=== PATIENT | female | born 1940 | race Two or more races ===

== ENCOUNTER 2020-02-14 07:49 | Outpatient (REF) | payer MEDICARE, SELFPAY ==
--- NOTE | 2020-02-14 08:15 | XR_ITS ---
EXAMINATION: XR KNEE, RIGHT CLINICAL INFORMATION: Right knee pain. Unspecified chronicity. COMPARISON: None TECHNIQUE: AP, lateral, tunnel, and sunrise views of the right knee. FINDINGS: 1 mild osteoarthritis is evident in the lateral and patellofemoral compartments with nonuniform joint space narrowing and articular surface irregularity. There is slight varus angulation of the right knee. Small right knee joint effusion. No fractures. 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 This may be situated within the fibular collateral ligament, lateral head of the gastrocnemius, or lateral joint capsule. No additional foci of calcification are identified. IMPRESSION: Severe medial compartment osteoarthritis in the right knee with associated varus angulation. Mild medial and lateral compartment osteophytes. 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
[2020-02-14 08:37] LABS: MANUAL DIFF FLAG NO
[2020-02-14 08:42] LABS: Basophils Percent Auto 0.4 % (0-2); Eosinophils Absolute Auto 0.1 X10*3/uL (0.0-0.4); Eosinophils Percent Auto 2.2 % (0-4); Hematocrit 37.9 % (37-47); Hemoglobin 12.6 g/dl (12.0-16.0); Imm Gran Abs Auto 0.01 X10*3/uL (0.00-0.03); Imm Gran Pct Auto 0.2 % (0.0-0.4); Lymphocytes Absolute Auto 1.8 X10*3/uL (1.2-4.9); Lymphocytes Percent Auto 32.8 % (20-40); Mean Corpuscular HGB Conc 33.2 g/dl (31.0-35.0); Mean Corpuscular Volume 93.3 fL (80-98); Mean Platelet Volume 10.9 fL (9.4-12.3); Monocytes Absolute Auto 0.6 X10*3/uL (0.1-1.2); Monocytes Percent Auto 10.2 % (2-11); Neutrophils Percent Auto 54.2 % (45-73); Platelet Count 209 X10*3/uL (160-400); Red Blood Count 4.06 X10*6/uL (4.20-5.50); Red Cell Distribution Width 12.6 % (11.0-16.0); White Blood Count 5.6 X10*3/uL (4.8-10.8)
[2020-02-14 09:04] LABS: Alanine Aminotransferase 18 U/L (0-31); Albumin Level 4.2 g/dL (3.5-5.0); Alkaline Phosphatase 81 U/L (39-117); Anion Gap 12 (12-20); Aspartate Amino Transferase 26 U/L (5-31); Bilirubin Total 0.6 mg/dL (0.0-1.0); Blood Urea Nitrogen 23 mg/dL (9-16); Carbon Dioxide 30 mmol/L (22-29); Chloride 103 mmol/L (96-108); Cholesterol 188 mg/dL; Estimated Glomerular Filt Rate > 60; Glucose Fasting 94 mg/dL (60-99); HDL Cholesterol 63 mg/dL; LDL Cholesterol Calculated 109 mg/dl; Potassium 3.5 mmol/l (3.3-5.1); Sodium 141 mmol/L (135-145); Total Protein 7.1 g/dL (6.5-8.0); Triglycerides 84 mg/dL
== END 2020-02-14 07:50 | disposition home or self-care (01) ==
LOC: HO.LAB 07:49
PROVIDERS: PCP Internal Medicine; Visit Provider Internal Medicine
DX: M25.561 Pain in right knee (principal); E78.00 Pure hypercholesterolemia, unspecified; K21.9 Gastro-esophageal reflux disease without esophagitis
CPT/HCPCS: 36415; 73564; 80053; 80061; 85025

== ENCOUNTER 2020-04-17 16:00 | Outpatient (REF) | payer MEDICARE, SELFPAY ==
--- NOTE | 2020-04-17 17:33 | US_ITS ---
EXAMINATION: US VENOUS ULTRASOUND WITH DOPPLER LOWER EXTREMITY, RIGHT CLINICAL INFORMATION: Chronic embolism and thrombosis. COMPARISON: Ultrasound left extremity 03/27/2012. TECHNIQUE: Ultrasound of the deep veins is performed from the hip to the calf with compression sonography and color and pulse Doppler assessment. Spectral analysis with color-flow imaging is performed. FINDINGS: There is normal venous compression and respiratory variation and augmented flow. The visualized common femoral vein, superficial femoral vein, profunda femoral vein, popliteal vein, and the trifurcation region shows no evidence of deep venous thrombosis. There is no significant popliteal fossa cyst. If the patient's symptoms persist, followup ultrasound in 5 days 7 days might be of value to exclude proximal propagation from a non-visualized calf vein. US/US venous duplex LE RT IMPRESSION: No DVT demonstrated in the right lower extremity.
== END 2020-04-17 16:01 | disposition home or self-care (01) ==
LOC: HO.US 16:00
PROVIDERS: PCP Internal Medicine; Visit Provider Nurse Practitioner Family
DX: I82.5Y1 Chronic embolism and thrombosis of unspecified deep veins of right proximal lower extremity (principal)
CPT/HCPCS: 93971

== ENCOUNTER 2020-04-18 08:18 | Outpatient (REF) | payer MEDICARE, SELFPAY ==
[2020-04-18 09:02] LABS: Basophils Percent Auto 0.4 % (0-2); Eosinophils Absolute Auto 0.1 X10*3/uL (0.0-0.4); Eosinophils Percent Auto 1.1 % (0-4); Hematocrit 39.3 % (37-47); Hemoglobin 13.1 g/dl (12.0-16.0); Imm Gran Abs Auto 0.02 X10*3/uL (0.00-0.03); Imm Gran Pct Auto 0.4 % (0.0-0.4); Lymphocytes Absolute Auto 1.7 X10*3/uL (1.2-4.9); MANUAL DIFF FLAG NO; Mean Corpuscular HGB Conc 33.3 g/dl (31.0-35.0); Mean Corpuscular Hemoglobin 31.4 pg (27.0-33.0); Mean Corpuscular Volume 94.2 fL (80-98); Mean Platelet Volume 10.6 fL (9.4-12.3); Monocytes Absolute Auto 0.6 X10*3/uL (0.1-1.2); Monocytes Percent Auto 10.1 % (2-11); Neutrophils Absolute Auto 3.1 X10*3/uL (2.0-8.3); Platelet Count 216 X10*3/uL (160-400); Red Blood Count 4.17 X10*6/uL (4.20-5.50); Red Cell Distribution Width 12.9 % (11.0-16.0); White Blood Count 5.5 X10*3/uL (4.8-10.8)
[2020-04-18 09:54] LABS: Anion Gap 13 (12-20); Blood Urea Nitrogen 18 mg/dL (9-16); Calcium 9.3 mg/dL (8.4-10.2); Carbon Dioxide 30 mmol/L (22-29); Chloride 103 mmol/L (96-108); Cholesterol 180 mg/dL; Estimated Glomerular Filt Rate > 60; Glucose Fasting 93 mg/dL (60-99); HDL Cholesterol 67 mg/dL; LDL Cholesterol Calculated 94 mg/dl; Potassium 3.7 mmol/l (3.3-5.1); Sodium 142 mmol/L (135-145); Triglycerides 95 mg/dL
== END 2020-04-18 08:19 | disposition home or self-care (01) ==
LOC: HO.LAB 08:18
PROVIDERS: PCP Internal Medicine; Visit Provider Nurse Practitioner Family
DX: M79.604 Pain in right leg (principal); E78.00 Pure hypercholesterolemia, unspecified
CPT/HCPCS: 36415; 80048; 80061; 85025

== ENCOUNTER 2020-08-06 09:02 | Emergency (ER) | payer MEDICARE, OTHER, SELFPAY ==
--- NOTE | ~2020-08-06 | US_ITS ---
EXAMINATION: US VENOUS ULTRASOUND WITH DOPPLER LOWER EXTREMITY, BILATERAL CLINICAL INFORMATION: Leg swelling. COMPARISON: None TECHNIQUE: Ultrasound of the deep veins is performed from the hip to the calf with compression sonography and color and pulse Doppler assessment. Spectral analysis with color-flow imaging is performed. FINDINGS: RIGHT: There is normal venous compression and respiratory variation and augmented flow. The visualized common femoral vein, superficial femoral vein, profunda femoral vein, popliteal vein, and the trifurcation region shows no evidence of deep venous thrombosis. There is is mild joint effusion. LEFT: There is normal venous compression and respiratory variation and augmented flow. The visualized common femoral vein, superficial femoral vein, profunda femoral vein, popliteal vein, and the trifurcation region shows no evidence of deep venous thrombosis. There is mild joint effusion. There is a small Avila's cyst measuring 3.8 x 1.2 x 2.5 cm If the patient's symptoms persist, followup ultrasound in 5 days 7 days might be of value to exclude proximal propagation from a non-visualized calf vein. US/US venous duplex LE BI IMPRESSION: No DVT demonstrated in the bilateral lower extremity. Bilateral small joint effusion. Small left knee Avila's cyst.
--- NOTE | ~2020-08-06 | XR_ITS ---
EXAMINATION: XR KNEE, RIGHT CLINICAL INFORMATION: Right knee pain COMPARISON: None TECHNIQUE: Four views of the right knee. FINDINGS: There is loss of medial and patellofemoral compartment joint space with moderate periarticular spurring. Moderate osteophytes are seen along the posterior tibial plateau and posterior femoral condyles. No visible acute fracture or dislocation seen. There is moderate suprapatellar joint effusion. Soft tissue calcification lateral to the lateral femoral condyle likely calcific tendinitis. XR/XR knee RT 4V IMPRESSION: Calcific tendinitis lateral femoral condyle. Mild suprapatellar joint effusion. No visible acute fracture or dislocation seen. Degenerative changes medial and patellofemoral compartment.
[2020-08-06 09:20] VITALS: BP 156/78; PULSE 60
[2020-08-06 09:22] VITALS: BP 164/71; PULSE 67; RESP 16; TEMP 37.2; O2SAT 99; BMI 21.0
--- NOTE | 2020-08-06 09:42 | ED.GENADULT ---
HPI - General Adult General Chief complaint: Extremity Injury, Lower Stated complaint: Bilateral Leg Swelling Time Seen by Provider: 08/06/20 09:28 Source: patient Mode of arrival: ambulatory Limitations: no limitations History of Present Illness HPI narrative: Patient presents to the ED for right knee/right calf pain for the past 2 days. Patient states symptoms occurred after using a stationary bike. Patient denies falling, chest pain, shortness of breath, fever, chills, redness of extremity, or swelling of lower extremities. Patient denies any blunt trauma the lower extremities. Related Data Previous Rx's Medication Instructions Recorded simvastatin 20 mg tablet 20 mg PO BEDTIME #90 tab 03/06/20 hydrochlorothiazide 25 mg tablet 25 mg PO DAILY #90 tab 04/07/20 naproxen 500 mg tablet 500 mg PO BID #60 tab 04/22/20 citalopram 10 mg tablet 10 mg PO DAILY #90 tab 04/30/20 citalopram 20 mg tablet 20 mg PO DAILY #90 tab 04/30/20 naproxen 500 mg PO BID PRN #20 tab 08/06/20 walker [Ultra-Light Rollator] #1 ea 08/06/20 Allergies Allergy/AdvReac Type Severity Reaction Status Date / Time aspirin [Aspirin] Allergy Mild RASH Verified 06/04/20 15:19 Review of Systems Review of Systems: Yes all other systems are reviewed and are negative Constitutional: Constitutional: Reports as per HPI and Reports no additional constitutional complaints Eyes: Eyes: Reports as per HPI and Reports no additional eye complaints ENT: Reports system reviewed and no additional complaints, except as documented and Reports as per HPI Cardiovascular: Cardiovascular: Reports as per HPI and Reports no additional cardiovascular complaints Respiratory: Respiratory: Reports as per HPI and Reports no additional respiratory complaints Gastrointestinal: Gastrointestinal: Reports as per HPI and Reports no additional gastrointestinal complaints Genitourinary: Genitourinary: Reports no additional female genitourinary complaints and Reports as per HPI Musculoskeletal: Musculoskeletal: Reports no additional musculoskeletal complaints and Reports as per HPI Comments: Right knee pain. Right calf pain Neurologic: Reports system reviewed and no additional complaints, except as documented and Reports as per HPI Psychiatric: Psychiatric: Reports no additional psychiatric complaints and Reports as per HPI PMFSH Past Medical History Medical History Dyslipidemia High cholesterol Hypertension Osteoarthritis of right knee Right leg DVT Right leg pain Right leg pain Surgical History H/O rectal polypectomy History of hand surgery Family History Family History Father Old age Mother Respiratory disease Brother Pancreatic cancer Sister No problems noted. Sister No problems noted. Daughter No problems noted. Daughter No problems noted. Social History Social History Smoking Status: Never smoker Tobacco Type: Cigarette Smoked in Last 30 Days: No Use of substances other than those prescribed or required for medical reasons: No Advance Directives: Yes Advance Directives Information Provided: Yes Advance Directives on File: No Physical Exam Vital Signs: Vital Signs: Last Vital Signs Temp 98.9 F 08/06/20 13:03 Pulse 68 08/06/20 13:03 Resp 16 08/06/20 13:03 BP 131/60 08/06/20 13:03 Pulse Ox 97 08/06/20 13:03 Body Mass Index 21.0 Const: General: cooperative, healthy appearing, comfortable, no acute distress, well developed, alert, awake and Physically active Orientation/consciousness: patient oriented x3 HENMT: Head: Yes normal to inspection, Yes No palpable skull fracture present, Yes normocephalic and Yes atraumatic Eyes: General: appearance normal, both eyes and all related structures Neck: Neck: Yes normal visual inspection, Yes full ROM, Yes no lymphadenopathy, Yes no meningeal signs, Yes trachea midline, Yes supple and No tender Chest: Chest palpation & inspection: normal inspection of the chest and normal palpation of entire chest wall Resp: Effort & Inspection: normal respiratory effort and able to speak in complete sentences Auscultation: clear to auscultation bilaterally Cardio: Jugular venous distension: no JVD Heart sounds: S1 normal heart sound present and S2 normal heart sound present GI: Inspection: Yes normal to inspection and No abdominal wall ecchymosis Palpation (GI): Soft to palpation, not firm, nontender, no guarding and not rigid : General: No CVA tenderness and Yes no CVA tenderness Back/Spine/Pelvis: Back: no CVA tenderness, No CVA tenderness and No back tenderness Skin: General skin exam: no rashes or lesions noted and elasticity normal Neuro: General: patient oriented x3, no meningeal signs and CN's II-XI intact bilaterally Cranial nerves: Yes CN's II-XII intact bilaterally Extrem: Other: Right lower extremity: Negative for swelling, redness, hotness, or coolness. Presently negative for any calf tenderness. Patient able to to flex and extend knee with slight discomfort. Knee negative for erythema, swelling, warmth. Positive for tenderness on patellar knee. negative for pitting edema. Vascular/Neuro/motor exam intact Left lower extremity: Negative for any swelling, redness, erythema, tenderness, pain edema. negative for pitting edema. Vascular/Neuro/motor exam is intact General: Yes normal to inspection and Yes full ROM Psych: Appearance: grossly normal, well kempt and not disheveled Course Course Course Narrative: History physical exam does not indicate CHF for DVT, but due to patient stating right calf pain should be sent for ultrasound of right lower extremity. Patient also have x-ray of right knee. Not suspecting septic joint. Labs not indicated. Not suspecting CHF. Reevaluation(s) Reevaluation #1: Ultrasound negative for DVT. Right knee x-ray positive for severe arthritis/tendinitis. Patient able to ambulate on her own, but has pain inright knee on ambulation. PT evaluation ordered and case management was speak to patient after. Reevaluation #2: PT evaluated patient and recommends wheeled walker. Diagnosis right knee arthritis. system developer associate manager Margaux organize VNS services for patient after speaking to patient and daugther. Medical Decision Making MDM Narrative Medical decision making narrative: Right knee arthritis Discharge Plan Discharge Clinical Impression: Osteoarthritis of right knee Patient Disposition: Home, Self-Care Instructions: Osteoarthritis (ED) Additional Instructions: Return to ED for any redness/warmth, swelling of lower extremities, fever, chills, chest pain, shortness of breath, or any other concerning symptoms. Prescriptions: New (DME) Ultra-Light Rollator Misc See Rx Instructions .ROUTE .MEDSUPPLY Qty: 1 RF: 0 naproxen 500 mg tablet 500 mg PO BID PRN (Reason: pain) Qty: 20 RF: 0 No Action simvastatin 20 mg tablet 20 mg PO BEDTIME Qty: 90 RF: 3 hydrochlorothiazide 25 mg tablet 25 mg PO DAILY Qty: 90 RF: 1 naproxen 500 mg tablet 500 mg PO BID Qty: 60 RF: 5 citalopram 10 mg tablet 10 mg PO DAILY Qty: 90 RF: 3 citalopram 20 mg tablet 20 mg PO DAILY Qty: 90 RF: 3 Referrals: [facility] [Outside] - 2 days Duarte Simon MD [Physician] - 2 days (Severe right knee osteoarthritis and tendinitis.) Tara Rowley MD [Primary Care Provider] - 2 days (Lower extremity negative for DVT. Right knee positive for osteoarthritis and tomorrow lateral condyle calcific tendinitis.) Interventions: ED Discharge Assessment Last Done: 08/06/20 13:26 Discharge Date/Time: 08/06/20 13:27 Print Language: Brazilian
[2020-08-06] MEDS: Acetaminophen 325 MG TABLET 650 MG PO (10:33)
--- NOTE | 2020-08-06 12:46 | PC.NURSE ---
LANETTE JIMENEZ AND PT/FAMILY AWARE US/XRAY RESULTS, PT HAD AMBULATED TO BR SLOW/STEADY GAIT/MOVEMENTS OBSERVED BY THIS RN. PTS DAUGHTER REQUESTING PT ASSESSMENT, CASE MGT AWARE, PT NOW AT BEDSIDE, AMBULATORY WITH WHEELED WALKER
[2020-08-06 12:55] VITALS: BP 164/71; PULSE 67; O2SAT 99
[2020-08-06 13:03] VITALS: BP 131/60; PULSE 68; RESP 16; TEMP 37.2; O2SAT 97
--- NOTE | 2020-08-06 13:14 | MHC.CM.ED ---
Received case management consult from [facility]. Patient came to ER with bilateral leg swelling. Patient found to have osteoarthritis. Patient's daughter, Cassandra is concerned about patient going home because she cares for her . Physical therapy emily completed. Home therapy is recommended. Patient is primarily Burkinan speaking. Declining interpeter at this time. Patient's daughter states patient lives with her , ambulates independently and had no services prior to coming to the ER. PCP verified. Patient's was active with [facility] in the past. Patient and daughter requesting referral there. Referral made via allscripts. [facility] aware. Continue to monitor for d/c needs.
--- NOTE | 2020-08-06 14:33 | MHC.CM.ED ---
Received notification from [facility] that they are unable to accept patient. Referral made to [facility]. They will accept patient when they verify patient's PCP. Spoke with patient's daughter, Cassandra via telephone at [phone]. Explained above info. Cassandra verbalized understanding.
== END 2020-08-06 13:27 | disposition home or self-care (01) ==
PROVIDERS: Emergency Provider Emergency Medicine; PCP Internal Medicine
DX: M17.11 Unilateral primary osteoarthritis, right knee (principal); M25.561 Pain in right knee; E78.5 Hyperlipidemia, unspecified; I10 Essential (primary) hypertension; F17.210 Nicotine dependence, cigarettes, uncomplicated; Z86.718 Personal history of other venous thrombosis and embolism; Z79.02 Long term (current) use of antithrombotics/antiplatelets; Z79.899 Other long term (current) drug therapy
CPT/HCPCS: 73564; 93970; 97162; 99284

== ENCOUNTER 2020-10-02 07:46 | Outpatient (REF) | payer MEDICARE, OTHER, SELFPAY ==
[2020-10-02 08:53] LABS: Alanine Aminotransferase 15 U/L (0-31); Alkaline Phosphatase 82 U/L (39-117); Anion Gap 11 (12-20); Aspartate Amino Transferase 22 U/L (5-31); Bilirubin Total 0.3 mg/dL (0.0-1.0); Blood Urea Nitrogen 19 mg/dL (9-16); Calcium 9.4 mg/dL (8.4-10.2); Carbon Dioxide 30 mmol/L (22-29); Chloride 104 mmol/L (96-108); Cholesterol 197 mg/dL; Estimated Glomerular Filt Rate > 60; Glucose Fasting 94 mg/dL (60-99); HDL Cholesterol 71 mg/dL; LDL Cholesterol Calculated 109 mg/dl; Potassium 3.6 mmol/L (3.3-5.1); Sodium 141 mmol/L (135-145); Total Protein 6.8 g/dL (6.5-8.0); Triglycerides 86 mg/dL
== END 2020-10-02 07:47 | disposition home or self-care (01) ==
LOC: HO.LAB 07:46
PROVIDERS: PCP Internal Medicine; Visit Provider Internal Medicine
DX: E78.5 Hyperlipidemia, unspecified (principal)
CPT/HCPCS: 36415; 80053; 80061

== ENCOUNTER 2021-01-06 13:02 | Emergency (ER) | payer MEDICARE, OTHER, SELFPAY ==
--- NOTE | ~2021-01-06 | CT_ITS ---
EXAMINATION: CT HEAD WITHOUT CONTRAST CT FACIAL BONES WITHOUT CONTRAST CT CERVICAL SPINE WITHOUT CONTRAST CLINICAL INFORMATION: Status post mechanical fall with head injury. COMPARISON: None TECHNIQUE: Contiguous axial imaging was performed from the skull base to vertex with multiplanar 2-D reconstructions without contrast. Helical scanning was performed of the cervical spine in the axial plane with multiplanar 2-D reconstructions without contrast. This CT examination was performed using dose optimization techniques as appropriate, variously including the following: *Automated exposure control *Adjustment of mA and/or kV according to patient size (this includes techniques or standardized protocols for targeted exams where dose is matched to indication/reason for exam; i.e. extremities or head) *Use of iterative reconstruction technique DLP: 1156 mGy-cm FINDINGS: CT HEAD: There is no evidence of acute intracranial hemorrhage or territorial infarction. No abnormal mass effect or midline shift is seen. Giordano to white matter differentiation is well preserved. No extra-axial fluid collections are identified. The ventricles are normal in size. There is no abnormal attenuation within the brain parenchyma. The osseous structures and soft tissues are normal. There is fluid in the right maxillary sinus (see below). The rest of the paranasal sinuses and mastoid air cells are unremarkable. CT FACIAL BONES: There is a mildly comminuted fracture of the right orbital floor. There is slight depression of a few fracture fragments. There is a depressed fracture of the anterior wall of the right maxillary sinus. There is a comminuted fracture of the right posterolateral wall of the maxillary sinus. There is high-density fluid filling more than half of the right maxillary sinus, most likely blood. There is a small amount of air in the subcutaneous tissues anterior to the right maxillary sinus. There is some soft tissue swelling and a few bubbles of air in the soft tissues anterolateral to the right orbit. There is dteracqb-yz-lcxcqj osteoarthritis in both temporomandibular joints. CT CERVICAL SPINE: There is no acute fracture or prevertebral soft tissue swelling. There is severe degenerative disc disease at C5-C6 and onkczriq-gp-jdyhmz degenerative disc disease at C6-C7. There is a mild grade 1 anterolisthesis of C4 on C5 which is likely on a degenerative basis. There is multilevel yetrelsx-vo-bmyolk bilateral facet arthropathy. CT/CT head/brain wo con IMPRESSION: CT HEAD: No evidence of acute intracranial injury. CT FACIAL BONES: 1. Fractures of the right orbital floor. 2. Fractures of the anterior and posterolateral ramirez of the maxillary sinus. Moderate fluid in the right maxilla. 3. Tjcrdftx-ci-igektk osteoarthritis of both temporomandibular joints. CT CERVICAL SPINE: 1. Multilevel degenerative disc disease and facet arthropathy. 2. No evidence of acute injury.
--- NOTE | ~2021-01-06 | XR_ITS ---
EXAMINATION: XR SHOULDER, LEFT CLINICAL INFORMATION: Fall, trauma, pain COMPARISON: None TECHNIQUE: Portable AP and lateral views of the left shoulder are obtained. FINDINGS: There is no fracture or dislocation. The acromioclavicular alignment is normal. There are degenerative changes acromioclavicular joint. A corticated ossicle is present at superior aspect AC joint. The left lung apex as well as maintenance shows no pneumothorax or pleural reaction. XR/XR shoulder LT min 2V IMPRESSION: No fracture or dislocation.
--- NOTE | ~2021-01-06 | CT_ITS ---
EXAMINATION: CT HEAD WITHOUT CONTRAST CT FACIAL BONES WITHOUT CONTRAST CT CERVICAL SPINE WITHOUT CONTRAST CLINICAL INFORMATION: Status post mechanical fall with head injury. COMPARISON: None TECHNIQUE: Contiguous axial imaging was performed from the skull base to vertex with multiplanar 2-D reconstructions without contrast. Helical scanning was performed of the cervical spine in the axial plane with multiplanar 2-D reconstructions without contrast. This CT examination was performed using dose optimization techniques as appropriate, variously including the following: *Automated exposure control *Adjustment of mA and/or kV according to patient size (this includes techniques or standardized protocols for targeted exams where dose is matched to indication/reason for exam; i.e. extremities or head) *Use of iterative reconstruction technique DLP: 1156 mGy-cm FINDINGS: CT HEAD: There is no evidence of acute intracranial hemorrhage or territorial infarction. No abnormal mass effect or midline shift is seen. Giordano to white matter differentiation is well preserved. No extra-axial fluid collections are identified. The ventricles are normal in size. There is no abnormal attenuation within the brain parenchyma. The osseous structures and soft tissues are normal. There is fluid in the right maxillary sinus (see below). The rest of the paranasal sinuses and mastoid air cells are unremarkable. CT FACIAL BONES: There is a mildly comminuted fracture of the right orbital floor. There is slight depression of a few fracture fragments. There is a depressed fracture of the anterior wall of the right maxillary sinus. There is a comminuted fracture of the right posterolateral wall of the maxillary sinus. There is high-density fluid filling more than half of the right maxillary sinus, most likely blood. There is a small amount of air in the subcutaneous tissues anterior to the right maxillary sinus. There is some soft tissue swelling and a few bubbles of air in the soft tissues anterolateral to the right orbit. There is fczwvjlr-tk-erygdm osteoarthritis in both temporomandibular joints. CT CERVICAL SPINE: There is no acute fracture or prevertebral soft tissue swelling. There is severe degenerative disc disease at C5-C6 and jlpholui-uh-unxgng degenerative disc disease at C6-C7. There is a mild grade 1 anterolisthesis of C4 on C5 which is likely on a degenerative basis. There is multilevel rwuyudcf-mb-kjtdxi bilateral facet arthropathy. CT/CT cervical spine wo con IMPRESSION: CT HEAD: No evidence of acute intracranial injury. CT FACIAL BONES: 1. Fractures of the right orbital floor. 2. Fractures of the anterior and posterolateral ramirez of the maxillary sinus. Moderate fluid in the right maxilla. 3. Laihuqvt-qn-hqroxf osteoarthritis of both temporomandibular joints. CT CERVICAL SPINE: 1. Multilevel degenerative disc disease and facet arthropathy. 2. No evidence of acute injury.
--- NOTE | ~2021-01-06 | CT_ITS ---
EXAMINATION: CT HEAD WITHOUT CONTRAST CT FACIAL BONES WITHOUT CONTRAST CT CERVICAL SPINE WITHOUT CONTRAST CLINICAL INFORMATION: Status post mechanical fall with head injury. COMPARISON: None TECHNIQUE: Contiguous axial imaging was performed from the skull base to vertex with multiplanar 2-D reconstructions without contrast. Helical scanning was performed of the cervical spine in the axial plane with multiplanar 2-D reconstructions without contrast. This CT examination was performed using dose optimization techniques as appropriate, variously including the following: *Automated exposure control *Adjustment of mA and/or kV according to patient size (this includes techniques or standardized protocols for targeted exams where dose is matched to indication/reason for exam; i.e. extremities or head) *Use of iterative reconstruction technique DLP: 1156 mGy-cm FINDINGS: CT HEAD: There is no evidence of acute intracranial hemorrhage or territorial infarction. No abnormal mass effect or midline shift is seen. Giordano to white matter differentiation is well preserved. No extra-axial fluid collections are identified. The ventricles are normal in size. There is no abnormal attenuation within the brain parenchyma. The osseous structures and soft tissues are normal. There is fluid in the right maxillary sinus (see below). The rest of the paranasal sinuses and mastoid air cells are unremarkable. CT FACIAL BONES: There is a mildly comminuted fracture of the right orbital floor. There is slight depression of a few fracture fragments. There is a depressed fracture of the anterior wall of the right maxillary sinus. There is a comminuted fracture of the right posterolateral wall of the maxillary sinus. There is high-density fluid filling more than half of the right maxillary sinus, most likely blood. There is a small amount of air in the subcutaneous tissues anterior to the right maxillary sinus. There is some soft tissue swelling and a few bubbles of air in the soft tissues anterolateral to the right orbit. There is qdnmtmjr-hw-ncdsuo osteoarthritis in both temporomandibular joints. CT CERVICAL SPINE: There is no acute fracture or prevertebral soft tissue swelling. There is severe degenerative disc disease at C5-C6 and xthcgyhj-tk-rclskh degenerative disc disease at C6-C7. There is a mild grade 1 anterolisthesis of C4 on C5 which is likely on a degenerative basis. There is multilevel jumwaqop-av-dqpunj bilateral facet arthropathy. CT/CT facial bones wo con IMPRESSION: CT HEAD: No evidence of acute intracranial injury. CT FACIAL BONES: 1. Fractures of the right orbital floor. 2. Fractures of the anterior and posterolateral ramirez of the maxillary sinus. Moderate fluid in the right maxilla. 3. Gcrgsufl-qm-mynqtd osteoarthritis of both temporomandibular joints. CT CERVICAL SPINE: 1. Multilevel degenerative disc disease and facet arthropathy. 2. No evidence of acute injury.
[2021-01-06 13:11] VITALS: BP 138/89; BP 177/73; PULSE 102; PULSE 76; RESP 18; TEMP 36.9; O2SAT 99; BMI 24.0
[2021-01-06] MEDS: Acetaminophen 325 MG TABLET 975 MG PO (13:40)
--- NOTE | 2021-01-06 13:46 | ED_ITS ---
HPI - Fall General Chief Complaint: Fall Stated Complaint: fall Time Seen by Provider: 01/06/21 13:35 Source: patient and EMS Mode of arrival: EMS Limitations: language barrier ([place]er-speaking) History of Present Illness HPI Narrative: 80-year-old female who is [place]er-speaking with a past medical history of hypertension, hyperlipidemia, osteoporosis and a DVT of the right leg who denies being on any blood thinners presenting to the ED via EMS with C- collar in place after she had a mechanical fall where she reports her daughter gifted her new shoes which were a little bit bigger than her normal size and when she was trying to walk up the steps or house she tripped and fell on her own shoe hitting her head/face on the cement steps. She denies any prolonged down time. She reports her daughter was next to her the entire time of the fall and she called EMS immediately. She reports she did not have any symptoms prior to the fall. She reports only pain after the fall no other symptoms. She reports she is up-to-date on her tetanus she received 1 year ago. complaint: fall Onset (ago): minute(s) (Prior to arrival) Fall from: standing Fall witnessed: yes, by family (By daughter) Place fall occurred: home (While trying to enter her house on her front steps) Loss of consciousness: none Prolonged down time: no Symptoms prior to fall: none Context: tripped/slipped (Due to new shoes that were big) Location of injury: head, face and neck Location of injury - extremities: left: shoulder Severity: moderate Quality: aching Associated symptoms (after fall): denies Related Data Previous Rx's Medication Instructions Recorded simvastatin 20 mg tablet 20 mg PO BEDTIME #90 tab 03/06/20 citalopram 10 mg tablet 10 mg PO DAILY #90 tab 04/30/20 naproxen 500 mg tablet 500 mg PO BID PRN #20 tab 08/06/20 walker (Ultra-Light Rollator) #1 ea 08/06/20 hydrochlorothiazide 25 mg tablet 25 mg PO DAILY #90 tab 09/24/20 citalopram 20 mg tablet 20 mg PO DAILY #90 tab 11/02/20 clobetasol 0.05 % topical gel 1 appl TOPICAL DAILY 30 Days #30 g 12/13/20 acetaminophen 500 mg tablet 1,000 mg PO QID PRN #14 tab 01/06/21 (Tylenol Extra Strength) amoxicillin 875 mg-potassium 1 tab PO BID 10 Days #20 tab 01/06/21 clavulanate 125 mg tablet (Augmentin) tramadol 50 mg tablet 50 mg PO BID PRN #14 tab 01/06/21 Allergies Allergy/AdvReac Type Severity Reaction Status Date / Time aspirin [Aspirin] Allergy Mild RASH Verified 10/07/20 15:43 Review of Systems Review of Systems: Constitutional : No changes in activity, No lethargy, No recent prior head injury, No agitation, No increased fussiness ENT/Mouth : No Ear Pain, No Nasal discharge/drainage Eyes: No Eye Pain, No Swelling, No Redness, No Foreign Body, No Vision Changes Cardiovascular : No Chest Pain, No SOB Respiratory : No Cough Gastrointestinal : No Nausea, No Vomiting, No abdominal Pain Genitourinary : No Dysuria, No Urinary Frequency, No Urinary Incontinence, No Urgency, No Flank Pain Musculoskeletal : Positive facial injury/pain, Positive left shoulder joint pain, No neck stiffness, No back pain/injury Skin : Positive right forehead laceration Neuro : No unsteady gait, No Paresthesias, No Loss of Consciousness, No altered mental status, No Headache Yes all other systems are reviewed and are negative [facility] Past Medical History Attestation statement: The following information was validated with the patient. Medical History Dyslipidemia High cholesterol Hypertension Left shoulder pain Osteoarthritis of right knee Osteoporosis Right leg DVT Right leg pain Right leg pain Surgical History H/O rectal polypectomy History of hand surgery Family History Family History Father Old age Mother Respiratory disease Brother Pancreatic cancer Sister No problems noted. Sister No problems noted. Daughter No problems noted. Daughter No problems noted. Social History Social History Alcohol intake: current Alcohol intake frequency: a few times a week Alcohol type: wine Patient Tobacco Use Status: Never used Tobacco Second Hand Smoke Exposure: No Advance Directives: Yes Advance Directives Information Provided: No Advance Directives on File: No Physical Exam Vital Signs: Vital Signs: Last Vital Signs Temp 98.5 F 01/06/21 15:19 Pulse 66 01/06/21 15:19 Resp 18 01/06/21 15:19 BP 152/64 H 01/06/21 15:19 Pulse Ox 99 01/06/21 15:19 Body Mass Index 24.0 vital signs have been reviewed as normal and appeared to be correct. Blood pressure hypertensive 177/73 Heart rate normal. Respiration rate normal. Temperature normal. Oxygen saturation normal. Appearance: Alert. Oriented X3. No acute distress. Head: No [place] signs noted. No raccoon eyes noted patient has a 2 cm intermediate laceration to right forehead right above the right eyebrow. No active bleeding or foreign bodies or obvious deformities or depressions noted. The rest of the external exam is within normal limits. Eyes: PERRLA. EOMI. No entrapment noted on my exam. Conjunctiva and sclera normal. Eyelids normal. ENT: EAC normal. TM's Normal. No septal hematoma noted. No hemotympanum noted. Pharynx normal. Uvula midline. Moist mucous membranes. No trismus noted. No drooling noted. No muffled voice noted. Neck: Normal inspection. Neck supple. FROM. No adenopathy. Thyroid Normal. No meningeal signs. No neck mass noted. CVS: Normal heart rate and rhythm. Heart sound normal. Pulses normal throughout. No murmurs/rales/gallops. Respiratory: No respiratory distress. Painless inspiration. Breath sounds normal. No wheezes/rales/rhonchi noted. Chest nontender. No accessory muscle usage noted or decreased air movement noted. Abdomen: Soft and nontender. Bowel sounds normal in all 4 quadrants. No distention noted. No organomegaly noted. No visible injury noted. Back: No CVA tenderness. Full range of motion noted. No rashes/lesion/induration/fluctuance or signs of infection noted. Skin: Skin warm and dry. Normal skin color. Normal skin turgor. No rashes/lesions/lacerations noted. Extremities: No lower extremity edema. No calf tenderness is noted. Patient with tenderness palpation to left AC joint although patient has full range of motion no obvious ligamentous laxity noted. No abrasion/laceration/ecchymosis or signs of infection noted to the left shoulder joint. Otherwise all other extremities exhibit normal range of motion and nontender. Neuro: Oriented X 3. No motor deficit. No sensory deficit. Reflexes normal. Normal steady gait. No focal neuro deficits noted. Vascular: + radial pulses/+ 2 distal pedal pulses/+2 dorsalis pedis b/l. Normal cap refill. No cyanosis noted to upper extremity nails and lower extremity toes nails. Course Course Course Narrative: 13:35pm - 80-year-old female presenting to the ED with complaints of facial pain with a laceration to right forehead after she sustained a mechanical fall where she was walking up the steps of her home and she tripped and fell due to her new shoes that were too big on her. She denied any loss of consciousness and denied any symptoms prior to the fall only complaints of pain after the fall no other symptoms. She is not up-to-date on tetanus. On exam patient is alert oriented x3. Not in any acute distress. No focal neuro deficits are noted. She has a 2 cm intermediate laceration to right forehead. No active bleeding or foreign bodies. No other signs of trauma. Patient also noted to have tenderness to palpation to left shoulder joint. Patient has full range of motion of the left shoulder no obvious laxity noted. Plan: CT scan of brain/cervical spine/facial bones, x-ray of left shoulder provide 975 mg of Tylenol, 50 mg of tramadol and update the patient's tetanus and suture the patient's laceration up and re-evaluate. Reevaluation(s) Reevaluation #1: - left shoulder x-ray within normal limits no acute processes are noted. - CT scan of brain within normal limits no acute processes were noted. - CT scan of cervical spine revealed chronic changes no acute processes were noted. 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 - therefore will DC home with antibiotics and symptomatic treatment and instructions to follow-up with PCP and facial maxilla surgeon and to return if any new or worsening symptoms. I also explained to the daughter and the patient that she should avoid any strenuous activity and if she sneezes to let it out to not hold it in or coughs and she understands this. Along with instructions return if any new or worsening symptoms. They understand and agree with this plan. Time: 16:14 Procedures Laceration Laceration 1: Site: face (Forehead/above right eyebrow) Side (If applicable): right Size (cm): 2 Description: irregular and clean Depth: simple, single layer and involves muscle layer Local Anesthetic: lidocaine 1% Amount of anesthesia used (mL): 3 Pre-repair: wound explored, irrigated extensively and deep structures intact Skin layer closed with: nylon Size (cm): 5-0 Number of sutures: 5 Technique: simple, interrupted MDM - Fall Medical Records Attestation: I reviewed the patient's medical records. Imaging Data CT scan of brain/cervical spine/facial bones without contrast: Attestation: I personally reviewed and interpreted this imaging study as follows: Radiologist's impression: FINDINGS: CT HEAD: There is no evidence of acute intracranial hemorrhage or territorial infarction. No abnormal mass effect or midline shift is seen. Giordano to white matter differentiation is well preserved. No extra-axial fluid collections are identified. The ventricles are normal in size. There is no abnormal attenuation within the brain parenchyma. The osseous structures and soft tissues are normal. There is fluid in the right maxillary sinus (see below). The rest of the paranasal sinuses and mastoid air cells are unremarkable. CT FACIAL BONES: There is a mildly comminuted fracture of the right orbital floor. There is slight depression of a few fracture fragments. There is a depressed fracture of the anterior wall of the right maxillary sinus. There is a comminuted fracture of the right posterolateral wall of the maxillary sinus. There is high-density fluid filling more than half of the right maxillary sinus, most likely blood. There is a small amount of air in the subcutaneous tissues anterior to the right maxillary sinus. There is some soft tissue swelling and a few bubbles of air in the soft tissues anterolateral to the right orbit. There is tymotpzy-rd-zwugsk osteoarthritis in both temporomandibular joints. CT CERVICAL SPINE: There is no acute fracture or prevertebral soft tissue swelling. There is severe degenerative disc disease at C5-C6 and ujmvnlyh-nd-sqhbqj degenerative disc disease at C6-C7. There is a mild grade 1 anterolisthesis of C4 on C5 which is likely on a degenerative basis. There is multilevel ubegpvhx-fj-lltcey bilateral facet arthropathy. CT/CT facial bones wo con IMPRESSION: CT HEAD: No evidence of acute intracranial injury. ? CT FACIAL BONES: 1. Fractures of the right orbital floor. 2. Fractures of the anterior and posterolateral ramirez of the maxillary sinus. Moderate fluid in the right maxilla. 3. Bcpfzjus-vk-zslesl osteoarthritis of both temporomandibular joints. ? CT CERVICAL SPINE: 1. Multilevel degenerative disc disease and facet arthropathy. 2. No evidence of acute injury. Left shoulder x-ray: Attestation: I personally reviewed and interpreted this imaging study as follows: Radiologist's impression: FINDINGS: There is no fracture or dislocation. The acromioclavicular alignment is normal. There are degenerative changes acromioclavicular joint. A corticated ossicle is present at superior aspect AC joint. The left lung apex as well as maintenance shows no pneumothorax or pleural reaction.? XR/XR shoulder LT min 2V IMPRESSION: No fracture or dislocation. Discharge Plan Discharge Clinical Impression: Fall, Forehead laceration, Closed fracture of right orbital floor, Fracture of right side of maxilla Patient Disposition: Home, Self-Care Instructions: Laceration (ED), Facial Fracture (ED), Fall Prevention for Older Adults (ED) Additional Instructions: Please contact [address] [place] [address] AT [phone] to follow up with a Facial Cosmetic and Maxillofacial Surgeon Comun?hu souza [address] [place] [address] [place] [phone] para hacer un seguimiento con un cirujano est?luis e facial y maxilofacial Prescriptions: New tramadol 50 mg tablet 50 mg PO BID PRN (Reason: pain) Qty: 14 RF: 0 acetaminophen [Tylenol Extra Strength] 500 mg tablet 1,000 mg PO QID PRN (Reason: fever or pain) Qty: 14 RF: 0 amoxicillin-pot clavulanate [Augmentin] 875-125 mg tablet 1 tab PO BID 10 Days Qty: 20 RF: 0 No Action simvastatin 20 mg tablet 20 mg PO BEDTIME Qty: 90 RF: 3 citalopram 10 mg tablet 10 mg PO DAILY Qty: 90 RF: 3 hydrochlorothiazide 25 mg tablet 25 mg PO DAILY Qty: 90 RF: 1 citalopram 20 mg tablet 20 mg PO DAILY Qty: 90 RF: 3 clobetasol 0.05 % gel 1 appl topical DAILY 30 Days Qty: 30 RF: 1 (DME) Ultra-Light Rollator Misc See Rx Instructions .ROUTE .MEDSUPPLY Qty: 1 RF: 0 naproxen 500 mg tablet 500 mg PO BID PRN (Reason: pain) Qty: 20 RF: 0 Referrals: Mary Wray PA [Emergency Midlevel Provider] - 5 days (for suture removal ) Physician,Unknown [Primary Care Provider] - 2 days (your pcp) Print Language: [place]er
[2021-01-06] MEDS: Lidocaine HCl 1 % MPF 5 ML VIAL INFILTRATI (13:55)
[2021-01-06] MEDS: traMADoL HCL 50 MG TABLET PO (14:14)
[2021-01-06] MEDS: Diphth,Pertus(ACell),Tet Adult 0.5 ML SYRINGE IM (14:14)
[2021-01-06 15:19] VITALS: BP 152/64; PULSE 66; RESP 18; TEMP 36.9; O2SAT 99
== END 2021-01-06 16:56 | disposition home or self-care (01) ==
PROVIDERS: Emergency Provider Emergency Medicine
DX: S01.81XA Laceration without foreign body of other part of head, initial encounter (principal); S02.31XA Fracture of orbital floor, right side, initial encounter for closed fracture; S02.40CA Maxillary fracture, right side, initial encounter for closed fracture; W17.89XA Other fall from one level to another, initial encounter; Y93.89 Activity, other specified; Y92.018 Other place in single-family (private) house as the place of occurrence of the external cause; Y99.9 Unspecified external cause status
CPT/HCPCS: 12051; 70450; 70486; 72125; 73030; 90471; 90715; 99284

== ENCOUNTER 2021-01-12 07:48 | Emergency (ER) | payer MEDICARE, OTHER, SELFPAY ==
[2021-01-12 07:56] VITALS: BP 130/77; PULSE 75; RESP 18; TEMP 36.6; O2SAT 98; BMI 23.6
--- NOTE | 2021-01-12 08:37 | ED.RECABL ---
HPI - Recheck/Abnormal Lab/Rx General Chief Complaint: General Medical Stated Complaint: SUTURE REMOVAL Time Seen by Provider: 01/12/21 08:37 Source: patient Mode of arrival: ambulatory Limitations: no limitations History of Present Illness MD complaint: suture/staple removal Initial visit (ago): day(s) (7) Initial visit for: laceration Returns today for: staple/stitch removal Symptoms since prior visit: no new symptoms Context: planned re-check Associated symptoms: none Related Data Previous Rx's Medication Instructions Recorded simvastatin 20 mg tablet 20 mg PO BEDTIME #90 tab 03/06/20 citalopram 10 mg tablet 10 mg PO DAILY #90 tab 04/30/20 naproxen 500 mg tablet 500 mg PO BID PRN #20 tab 08/06/20 walker (Ultra-Light Rollator) #1 ea 08/06/20 hydrochlorothiazide 25 mg tablet 25 mg PO DAILY #90 tab 09/24/20 citalopram 20 mg tablet 20 mg PO DAILY #90 tab 11/02/20 clobetasol 0.05 % topical gel 1 appl TOPICAL DAILY 30 Days #30 g 12/13/20 acetaminophen 500 mg tablet 1,000 mg PO QID PRN #14 tab 01/06/21 (Tylenol Extra Strength) amoxicillin 875 mg-potassium 1 tab PO BID 10 Days #20 tab 01/06/21 clavulanate 125 mg tablet (Augmentin) tramadol 50 mg tablet 50 mg PO BID PRN #14 tab 01/06/21 Allergies Allergy/AdvReac Type Severity Reaction Status Date / Time aspirin [Aspirin] Allergy Mild RASH Verified 10/07/20 15:43 Review of Systems Review of Systems: Constitutional : No Fever, No Chills, Cardiovascular : No Chest Pain, No SOB Respiratory : No Dyspnea Gastrointestinal : No abdominal pain Musculoskeletal : No Joint Swelling Skin : No rash, positive skin laceration Neuro : No Weakness, No Numbness PMFSH Past Medical History Attestation statement: The following information was validated with the patient. Medical History Dyslipidemia High cholesterol Hypertension Left shoulder pain Osteoarthritis of right knee Osteoporosis Right leg DVT Right leg pain Right leg pain Surgical History H/O rectal polypectomy History of hand surgery Family History Family History Father Old age Mother Respiratory disease Brother Pancreatic cancer Sister No problems noted. Sister No problems noted. Daughter No problems noted. Daughter No problems noted. Social History Social History Alcohol intake: current Alcohol intake frequency: a few times a week Alcohol type: wine Patient Tobacco Use Status: Never used Tobacco Second Hand Smoke Exposure: No Advance Directives: Yes Advance Directives Information Provided: No Advance Directives on File: No Physical Exam Vital Signs: Vital Signs: Last Vital Signs Temp 97.8 F 01/12/21 07:56 Pulse 75 01/12/21 07:56 Resp 18 01/12/21 07:56 BP 130/77 01/12/21 07:56 Pulse Ox 98 01/12/21 07:56 Body Mass Index 23.6 Appearance: Alert. Oriented X3. No acute distress. Eyes: Pupils equal, round and reactive to light. contusion to R periorbital area ENT: Pharynx normal. healing laceration R eyebrow area c/d/i no signs of infection Neck: Normal inspection. Neck supple. CVS: Normal heart rate and rhythm. Pulses normal. Respiratory: No respiratory distress. Skin: Skin warm and dry. Normal skin color. Extremities: No lower extremity edema. Neuro: Oriented X 3. No motor deficit. No sensory deficit. Procedures Procedure Narrative Procedure Narrative: suture removal without issue 5 sutures c/d/i no signs of infection no dehiscence tolerated well Discharge Plan Discharge Clinical Impression: Encounter for removal of sutures Patient Disposition: Home, Self-Care Instructions: Stitches Removal (ED) Additional Instructions: return to ED for any worsening symptoms or concerns bacitracin twice a day for one week no sunburn x 6 months Prescriptions: No Action simvastatin 20 mg tablet 20 mg PO BEDTIME Qty: 90 RF: 3 citalopram 10 mg tablet 10 mg PO DAILY Qty: 90 RF: 3 hydrochlorothiazide 25 mg tablet 25 mg PO DAILY Qty: 90 RF: 1 citalopram 20 mg tablet 20 mg PO DAILY Qty: 90 RF: 3 clobetasol 0.05 % gel 1 appl topical DAILY 30 Days Qty: 30 RF: 1 (DME) Ultra-Light Rollator Misc See Rx Instructions .ROUTE .MEDPPLY Qty: 1 RF: 0 naproxen 500 mg tablet 500 mg PO BID PRN (Reason: pain) Qty: 20 RF: 0 tramadol 50 mg tablet 50 mg PO BID PRN (Reason: pain) Qty: 14 RF: 0 acetaminophen [Tylenol Extra Strength] 500 mg tablet 1,000 mg PO QID PRN (Reason: fever or pain) Qty: 14 RF: 0 amoxicillin-pot clavulanate [Augmentin] 875-125 mg tablet 1 tab PO BID 10 Days Qty: 20 RF: 0
== END 2021-01-12 08:51 | disposition home or self-care (01) ==
PROVIDERS: Emergency Provider Emergency Medicine; PCP Internal Medicine
DX: Z48.02 Encounter for removal of sutures (principal); S01.111D Laceration without foreign body of right eyelid and periocular area, subsequent encounter; X58.XXXD Exposure to other specified factors, subsequent encounter
CPT/HCPCS: 99283

== ENCOUNTER 2021-09-03 07:52 | Outpatient (REF) | payer MEDICARE, OTHER, SELFPAY ==
--- NOTE | ~2021-09-03 | XR_ITS ---
EXAMINATION: XR CHEST CLINICAL INFORMATION: Cough. COMPARISON: None TECHNIQUE: 2 views of the chest were obtained. FINDINGS: The lungs are well-expanded and clear of acute process. The heart size and pulmonary vascularity is normal. There is moderate spondylosis with mild dextroscoliosis dorsal spine. No lytic process. XR/XR chest 2V IMPRESSION: Unremarkable chest exam.
[2021-09-03 08:12] LABS: MANUAL DIFF FLAG NO
[2021-09-03 08:56] LABS: Basophils Percent Auto 0.2 % (0-2); Eosinophils Absolute Auto 0.1 X10*3/uL (0.0-0.4); Eosinophils Percent Auto 2.9 % (0-4); Hematocrit 39.4 % (37.0-47.0); Imm Gran Abs Auto 0.01 X10*3/uL (0.00-0.03); Imm Gran Pct Auto 0.2 % (0.0-0.4); Lymphocytes Absolute Auto 1.5 X10*3/uL (1.2-4.9); Lymphocytes Percent Auto 33.6 % (20-40); Mean Corpuscular Hemoglobin 31.2 pg (27.0-33.0); Mean Corpuscular Volume 94.5 fL (80.0-98.0); Mean Platelet Volume 10.7 fL (9.4-12.3); Monocytes Absolute Auto 0.5 X10*3/uL (0.1-1.2); Monocytes Percent Auto 11.7 % (2-11); Neutrophils Absolute Auto 2.3 x10*3/uL (2.0-8.3); Neutrophils Percent Auto 51.4 % (45-73); Platelet Count 197 X10*3/uL (160-400); Red Blood Count 4.17 X10*6/uL (4.20-5.50); Red Cell Distribution Width 13.1 % (11.0-16.0); White Blood Count 4.5 X10*3/uL (4.8-10.8)
[2021-09-03 09:20] LABS: Alanine Aminotransferase 16 U/L (0-31); Albumin Level 4.2 g/dL (3.5-5.0); Alkaline Phosphatase 101 U/L (39-117); Anion Gap 10 (12-20); Aspartate Amino Transferase 29 U/L (5-31); Bilirubin Total 0.5 mg/dL (0.0-1.0); Blood Urea Nitrogen 20 mg/dL (9-16); Calcium 9.5 mg/dL (8.4-10.2); Carbon Dioxide 33 mmol/L (22-29); Chloride 101 mmol/L (96-108); Cholesterol 188 mg/dL; Estimated Glomerular Filt Rate > 60; Glucose Fasting 93 mg/dL (60-99); HDL Cholesterol 69 mg/dL; LDL Cholesterol Calculated 101 mg/dl; Potassium 3.5 mmol/L (3.3-5.1); Sodium 140 mmol/L (135-145); Total Protein 7.2 g/dL (6.5-8.0); Triglycerides 93 mg/dL
[2021-09-08 15:37] LABS: Vitamin D 25-OH, D2 <4 ng/mL; Vitamin D 25-OH, D3 40 ng/mL; Vitamin D 25-OH, Total 40 ng/mL (30-100)
== END 2021-09-03 07:53 | disposition home or self-care (01) ==
LOC: HO.XRAY 07:52
PROVIDERS: PCP Internal Medicine; Visit Provider Internal Medicine
DX: R05.9 Cough, unspecified (principal); D64.9 Anemia, unspecified; E55.9 Vitamin D deficiency, unspecified; M81.0 Age-related osteoporosis without current pathological fracture; E78.5 Hyperlipidemia, unspecified
CPT/HCPCS: 36415; 71046; 80053; 80061; 82306; 85025

== ENCOUNTER 2022-09-23 09:36 | Outpatient (REF) | payer MEDICARE, OTHER, SELFPAY ==
--- NOTE | ~2022-09-23 | XR_ITS ---
EXAMINATION: XR SHOULDER, LEFT CLINICAL INFORMATION: Pain COMPARISON: Previous x-ray December 2020 TECHNIQUE: AP external rotation, Grashey, scapular Y, and axillary views of the left shoulder. FINDINGS: The humeral head is high with respect to the glenoid. This may be related to rotator cuff disease. Bone alignment is otherwise normal. No fracture or dislocation. Degenerative changes at the acromioclavicular and glenohumeral joint. Soft tissues are unremarkable. XR/XR shoulder LT min 2V IMPRESSION: Arthritis. High humeral head, question related to rotator cuff disease.
--- NOTE | ~2022-09-23 | XR_ITS ---
EXAMINATION: XR HIP, RIGHT CLINICAL INFORMATION: Pain COMPARISON: Previous x-ray from 2010 TECHNIQUE: Two views of the right hip and one view of the pelvis. FINDINGS: Bone alignment is normal. No fracture or dislocation. There is arthritis at both hip joints with joint space narrowing and osteophyte formation. This is not appear appreciably changed from previous exam. There is osteophyte projecting off the right greater trochanter and adjacent soft tissue ossification suggestive of old soft tissue trauma.. Bones of the pelvis are normal. There are degenerative changes of the visualized lower lumbar spine. XR/XR hip RT min 2V IMPRESSION: Arthritis at both hip joints. Arthritis of the lower lumbar spine.
== END 2022-09-23 09:37 | disposition home or self-care (01) ==
LOC: HO.XRAY 09:36
PROVIDERS: PCP Internal Medicine; Visit Provider Nurse Practitioner Family
DX: M25.512 Pain in left shoulder (principal); M25.551 Pain in right hip
CPT/HCPCS: 73030; 73502

== ENCOUNTER 2022-11-03 07:50 | Outpatient (REF) | payer MEDICARE, OTHER, SELFPAY ==
[2022-11-03 08:21] LABS: MANUAL DIFF FLAG NO
[2022-11-03 08:45] LABS: Basophils Percent Auto 0.4 % (0-2); Eosinophils Absolute Auto 0.1 X10*3/uL (0.0-0.4); Eosinophils Percent Auto 2.6 % (0-4); Hematocrit 37.6 % (37.0-47.0); Hemoglobin 12.8 g/dl (12.0-16.0); Imm Gran Abs Auto 0.02 X10*3/uL (0.00-0.03); Imm Gran Pct Auto 0.4 % (0.0-0.4); Lymphocytes Absolute Auto 1.8 X10*3/uL (1.2-4.9); Lymphocytes Percent Auto 39.3 % (20-40); Mean Corpuscular Hemoglobin 31.4 pg (27.0-33.0); Mean Corpuscular Volume 92.4 fL (80.0-98.0); Mean Platelet Volume 10.5 fL (9.4-12.3); Monocytes Absolute Auto 0.6 X10*3/uL (0.1-1.2); Monocytes Percent Auto 13.4 % (2-11); Neutrophils Percent Auto 43.9 % (45-73); Platelet Count 247 X10*3/uL (160-400); Red Blood Count 4.07 X10*6/uL (4.20-5.50); Red Cell Distribution Width 12.8 % (11.0-16.0); White Blood Count 4.6 X10*3/uL (4.8-10.8)
[2022-11-03 09:15] LABS: Alanine Aminotransferase 16 U/L (0-31); Albumin Level 3.9 g/dL (3.5-5.0); Alkaline Phosphatase 79 U/L (39-117); Anion Gap 14 (12-20); Aspartate Amino Transferase 26 U/L (5-31); Bilirubin Total 0.5 mg/dL (0.0-1.0); Blood Urea Nitrogen 21 mg/dL (9-16); Carbon Dioxide 28 mmol/L (22-29); Chloride 105 mmol/L (96-108); Cholesterol 189 mg/dL; Estimated Glomerular Filt Rate > 60; Glucose Fasting 72 mg/dL (60-99); HDL Cholesterol 63 mg/dL; LDL Cholesterol Calculated 113 mg/dl; Potassium 3.5 mmol/L (3.3-5.1); Sodium 143 mmol/L (135-145); Total Protein 6.9 g/dL (6.5-8.0); Triglycerides 66 mg/dL
[2022-11-03 09:30] LABS: Vitamin D 25-OH Total 42.6 ng/mL (>30)
[2022-11-03 09:40] LABS: Folate 12.7 ng/mL (> or = 4.0); Vitamin B12 437 pg/mL (200-900)
== END 2022-11-03 07:51 | disposition home or self-care (01) ==
LOC: HO.LAB 07:50
PROVIDERS: PCP Internal Medicine; Visit Provider Internal Medicine
DX: D64.9 Anemia, unspecified (principal); M81.0 Age-related osteoporosis without current pathological fracture; E78.5 Hyperlipidemia, unspecified; E53.8 Deficiency of other specified B group vitamins; E55.9 Vitamin D deficiency, unspecified
CPT/HCPCS: 36415; 80053; 80061; 82306; 82607; 82746; 85025

== ENCOUNTER 2023-03-23 08:08 | Outpatient (AMB) | payer MEDICARE, SELFPAY ==
--- NOTE | 2023-03-23 08:16 | A.OFFPC_ITS ---
Vital Signs 03/23/23 08:17 Height 5 ft 2 in Weight 106 lb BMI 19.4 BP 120/70 Blood Pressure Location Lt brachial Position Sitting Pulse 70 Pulse Source Pulse Oximeter Pulse Oximetry (%) 96 Oxygen Delivery Method Room Air Intake Visit Reasons: anxiety Intake Note: Patient here for a follow up anxiety Installation Service Representative Required: No Accompanied by: Self / Same As Patient Allergies aspirin [Aspirin] Allergy (Mild, Verified 03/23/23 08:33) RASH Medication List - Last Reconciled 03/23/23 by Tara Islas MD acetaminophen (Tylenol Extra Strength) 1,000 mg (2 x 500 mg) PO QID PRN citalopram 20 mg PO BID clobetasol 0.05% 1 appl topical DAILY 30 days fluocinolone acetonide oil 0.01% (DermOtic Oil) 5 drps otic (ear) left BID 7 days hydrochlorothiazide 25 mg PO DAILY simvastatin 20 mg PO BEDTIME walker (Ultra-Light Rollator misc) As directed Tobacco use date assessed: 09/23/22 Fall risk assessment: No Falls in past year Last assessed Fall Risk: 03/23/23 Dental Screening Dental Screen Date: 03/23/23 Did you have a dental visit in the last 12 months?: No Did you have a dental problem in the last 6 months where you did not have access to dental care?: No Was dental information given to patient?: Patient has dentist HPI HPI Comments History of Present Illness Details This is an 82-year-old female with hypertension, dyslipidemia, mild amado or depression and generalized anxiety disorder comes today for follow-up on her conditions. Blood pressure stable. Cholesterol well controlled with statins. Depression and anxiety has improved with citalopram and reports no side effects. No chest pain or shortness of breath. No palpitations. [facility] Medical History Generalized anxiety disorder Encounter for Medicare annual wellness exam Pure hypercholesterolemia Leukopenia Cough Mild recurrent major depression Left shoulder pain Osteoporosis Dyslipidemia Osteoarthritis of right knee Right leg pain Hypertension High cholesterol Right leg pain Right leg DVT Surgical History History of hand surgery H/O rectal polypectomy Family History Father Old age Mother Respiratory disease Brother Pancreatic cancer Sister No problems noted. Sister No problems noted. Daughter No problems noted. Daughter No problems noted. Social History Housing: Apartment Alcohol intake: current Alcohol intake frequency: holidays/special occasions only Alcohol type: wine Patient Tobacco Use Status: Never used Tobacco e-Cigarette/Vaping Use: Never Used Second Hand Smoke Exposure: No service: No Current occupational status: disabled Cognitive needs: No Hearing needs: No Vision needs: Yes Questionnaire Thrive Questionnaire Date Thrive assessed: 07/08/22 MARK-7 AMB Questionnaire MARK-7 Date MARK - 7 assessed: 10/11/22 Source: Developed by Drs. Lázaro Vinson, Keysha Yanez, Jj Starr and colleagues, with an educational buzz from [employer]. Review of Systems Const All systems reviewed & are unremarkable except as noted in HPI and below Eyes Reports no additional complaints, Denies change in vision and Denies other visual disturbances Card Denies chest pain at rest, Denies chest pain with activity, Denies edema, Denies irregular heart rhythm, Denies claudication, Denies dyspnea, Denies dyspnea on exertion, Denies orthopnea, Denies paroxysmal nocturnal dyspnea and Denies slow heart rate Resp Denies cough, Denies dyspnea and Denies dyspnea on exertion GI Denies abdominal pain, Denies change in bowel habits, Denies excessive flatus, Denies nausea and Denies vomiting Denies urinary incontinence, Denies urinary hesitancy and Denies urinary urgency Musc Denies abnormal gait, Denies atrophy, Denies deformity and Denies limited range of motion Skin/Breast Denies bleeding lesions, Denies changing lesions and Denies rash Neuro Denies abnormal gait and Denies lack of coordination Physical exam (Primary Care) Vital Signs: Last Vital Signs Pulse 70 03/23/23 08:17 BP 120/70 03/23/23 08:17 Pulse Ox 96 03/23/23 08:17 Oxygen Delivery Method Room Air 03/23/23 08:17 BMI result Body Mass Index 19.4 Tobacco/Smoking Status: Tobacco use Status Tobacco use date assessed 09/23/22 03/23/23 08:23 Patient Tobacco Use Status Never used Tobacco 03/23/23 08:23 e-Cigarette/Vaping Use Never Used 03/23/23 08:23 Thrive Assessment: Date of Thrive Assessment Date Thrive assessed 07/08/22 03/23/23 08:23 Eyes General: appearance normal, both eyes and all related structures Eyelids: Yes eyelids normal Conjunctivae: conjunctivae normal Neck Neck: Yes normal visual inspection and Yes supple Resp Effort & Inspection: normal respiratory effort Auscultation: clear to auscultation bilaterally Cardio Jugular venous distension: no JVD Rate: regular rate Rhythm: regular rhythm Heart sounds: S1 normal heart sound present and S2 normal heart sound present Extrem General: Yes full ROM Psych Appearance: grossly normal Assessment and Plan Assessment & Plan (1) Mild recurrent major depression: Code(s): F33.0 - Major depressive disorder, recurrent, mild Plan: Continue citalopram. (2) Hypertension: Code(s): I10 - Essential (primary) hypertension Qualifiers: Hypertension type: essential hypertension Qualified Code(s): I10 - Essential (primary) hypertension Plan: Continue hydrochlorothiazide. Blood pressure goal is equal or less than 130/80. (3) Dyslipidemia: Code(s): E78.5 - Hyperlipidemia, unspecified Plan: Continue statins. (4) Generalized anxiety disorder: Code(s): F41.1 - Generalized anxiety disorder Plan: Continue citalopram. Orders: Orders Lipid Panel 7 Months E78.5 - Hyperlipidemia, unspecified Comprehensive [place]. Panel Fast 7 Months R05.9 - Cough, unspecified Coding Level of Care Code Est Pt Level 4 (06549) Diagnoses Mild recurrent major depression F33.0 Essential hypertension I10 Hypertension type: essential hypertension Dyslipidemia E78.5 Generalized anxiety disorder F41.1 Time Spent (min) 21
[2023-03-23 08:17] VITALS: BP 120/70; PULSE 70; O2SAT 96; BMI 19.4
== END 2023-03-23 08:40 | disposition home or self-care (01) ==
PROVIDERS: PCP Internal Medicine; Visit Provider Internal Medicine
DX: F33.0 Major depressive disorder, recurrent, mild (principal); I10 Essential (primary) hypertension; E78.5 Hyperlipidemia, unspecified; F41.1 Generalized anxiety disorder
CPT/HCPCS: 99214

== ENCOUNTER 2023-04-11 15:08 | Outpatient (AMB) | payer MEDICARE, SELFPAY ==
[2023-04-11 15:10] VITALS: BP 120/70; PULSE 71; O2SAT 97; BMI 19.8
--- NOTE | 2023-04-11 15:10 | A.OFFPC_ITS ---
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 Accompanied by: Daughter Allergies aspirin [Aspirin] Allergy (Mild, Verified 04/11/23 15:22) RASH Medication List - Last Reconciled 04/11/23 by Tara Islas MD acetaminophen (Tylenol Extra Strength) 1,000 mg (2 x 500 mg) PO QID PRN citalopram 20 mg PO BID clobetasol 0.05% 1 appl topical DAILY 30 days fluocinolone acetonide oil 0.01% (DermOtic Oil) 5 drps otic (ear) left BID 7 days hydrochlorothiazide 25 mg PO DAILY simvastatin 20 mg PO BEDTIME walker (Ultra-Light Rollator mis) As directed Tobacco use date assessed: 09/23/22 HPI HPI Comments History of Present Illness Details This is an 82-year-old female with hypertension, pure hypercholesterolemia, and mild recurrent major depression that comes today accompanied by daughter for hospital discharge follow-up from [facility] in [place] with discharge date 03/31/2023 due to a syncope with no weakness. She said she does not remember and she fall down the stairs. She does not recall if she had palpitations and occasionally she is dizzy. Head CT and neck CT were done in the hospital and had CT show meningioma. I will order MRI of the brain to evaluate this. Also echocardiogram and carotid Doppler will be order. Blood pressure stable. On statins for her cholesterol. Depression well controlled with citalopram. Had 2 tristan in head in which daughter will take her to [facility] again for removal tomorrow. [facility] Medical History (Updated 04/11/23 @ 16:44 by Tara Islas MD) Generalized anxiety disorder Encounter for Medicare annual wellness exam Pure hypercholesterolemia Leukopenia Cough Mild recurrent major depression Left shoulder pain Osteoporosis Dyslipidemia Osteoarthritis of right knee Right leg pain Hypertension High cholesterol Right leg pain Right leg DVT Surgical History History of hand surgery H/O rectal polypectomy Family History Father Old age Mother Respiratory disease Brother Pancreatic cancer Sister No problems noted. Sister No problems noted. Daughter No problems noted. Daughter No problems noted. Social History Housing: Apartment Alcohol intake: current Alcohol intake frequency: holidays/special occasions only Alcohol type: wine Patient Tobacco Use Status: Never used Tobacco e-Cigarette/Vaping Use: Never Used Second Hand Smoke Exposure: No service: No Current occupational status: disabled Cognitive needs: No Hearing needs: No Vision needs: Yes Questionnaire Thrive Questionnaire Date Thrive assessed: 07/08/22 MARK-7 AMB Questionnaire MARK-7 Date MARK - 7 assessed: 10/11/22 Source: Developed by Drs. Lázaro Vinson, Keysha Yanez, Jj Starr and colleagues, with an educational buzz from [employer]. Review of Systems Const All systems reviewed & are unremarkable except as noted in HPI and below Eyes Reports no additional complaints, Denies change in vision and Denies other visual disturbances Card Denies chest pain at rest, Denies chest pain with activity, Denies edema, Denies irregular heart rhythm, Denies claudication, Denies dyspnea, Denies dyspnea on exertion, Denies orthopnea, Denies paroxysmal nocturnal dyspnea and Denies slow heart rate Resp Denies cough, Denies dyspnea and Denies dyspnea on exertion GI Denies abdominal pain, Denies change in bowel habits, Denies excessive flatus, Denies nausea and Denies vomiting Denies urinary incontinence, Denies urinary hesitancy and Denies urinary urgency Musc Denies abnormal gait, Denies atrophy, Denies deformity and Denies limited range of motion Skin/Breast Denies bleeding lesions, Denies changing lesions and Denies rash Neuro Denies abnormal gait and Denies lack of coordination Physical exam (Primary Care) Vital Signs: Last Vital Signs Pulse 71 04/11/23 15:10 BP 120/70 04/11/23 15:10 Pulse Ox 97 04/11/23 15:10 Oxygen Delivery Method Room Air 04/11/23 15:10 BMI result Body Mass Index 19.8 Tobacco/Smoking Status: Tobacco use Status Tobacco use date assessed 09/23/22 04/11/23 15:21 Patient Tobacco Use Status Never used Tobacco 04/11/23 15:21 e-Cigarette/Vaping Use Never Used 04/11/23 15:21 Thrive Assessment: Date of Thrive Assessment Date Thrive assessed 07/08/22 04/11/23 15:21 Const Orientation/consciousness: patient oriented x3 Eyes General: appearance normal, both eyes and all related structures Eyelids: Yes eyelids normal Conjunctivae: conjunctivae normal Neck Neck: Yes normal visual inspection and Yes supple Resp Effort & Inspection: normal respiratory effort Auscultation: clear to auscultation bilaterally Cardio Jugular venous distension: no JVD Rate: regular rate Rhythm: regular rhythm Heart sounds: S1 normal heart sound present and S2 normal heart sound present GI Inspection: Yes normal to inspection Palpation (GI): Soft to palpation and nontender Auscultation: normal bowel sounds Skin General skin exam: no rashes or lesions noted Neuro General: patient oriented x3 and no focal motor deficits Extrem General: Yes full ROM Psych Appearance: grossly normal Assessment and Plan Assessment & Plan (1) Hospital discharge follow-up: Code(s): Z09 - Encounter for follow-up examination after completed treatment for conditions other than malignant neoplasm Plan: Hospital discharge 03/31/2023 due to syncope. Head CT showing meningioma. Also had a neck CT. (2) Syncope: Code(s): R55 - Syncope and collapse Qualifiers: Syncope type: unspecified Qualified Code(s): R55 - Syncope and collapse Plan: Echocardiogram and carotid Doppler ordered. (3) Meningioma: Code(s): D32.9 - Benign neoplasm of meninges, unspecified Plan: MRI of the brain ordered. (4) Mild recurrent major depression: Code(s): F33.0 - Major depressive disorder, recurrent, mild Plan: Continue citalopram. (5) Pure hypercholesterolemia: Code(s): E78.00 - Pure hypercholesterolemia, unspecified Plan: Continue statins. (6) Hypertension: Code(s): I10 - Essential (primary) hypertension Qualifiers: Hypertension type: essential hypertension Qualified Code(s): I10 - Essential (primary) hypertension Plan: Continue hydrochlorothiazide. Blood pressure goal is equal or less than 130/80. Orders: Orders CA echo transthoracic complete Today R55 - Syncope and collapse MR head/brain wo con Today D32.9 - Benign neoplasm of meninges, unspecified US carotid duplex BI Today R55 - Syncope and collapse Coding Level of Care Code TCM Mod MDM <= 14 Days Diagnoses Hospital discharge follow-up Z09 Syncope, unspecified syncope type R55 Syncope type: unspecified Meningioma D32.9 Mild recurrent major depression F33.0 Pure hypercholesterolemia E78.00 Essential hypertension I10 Hypertension type: essential hypertension Time Spent (min) 25
== END 2023-04-11 15:36 | disposition home or self-care (01) ==
PROVIDERS: PCP Internal Medicine; Visit Provider Internal Medicine
DX: R55 Syncope and collapse (principal); D32.9 Benign neoplasm of meninges, unspecified; F33.0 Major depressive disorder, recurrent, mild; Z09 Encounter for follow-up examination after completed treatment for conditions other than malignant neoplasm; E78.00 Pure hypercholesterolemia, unspecified; I10 Essential (primary) hypertension
CPT/HCPCS: 99214

== ENCOUNTER 2023-07-04 08:10 | Outpatient (REF) | payer MEDICARE, OTHER, SELFPAY ==
--- NOTE | ~2023-07-04 | XR_ITS ---
EXAMINATION: XR CHEST CLINICAL INFORMATION: Cough unspecified. COMPARISON: Chest of 09/03/2021. TECHNIQUE: 2 views of the chest were obtained. FINDINGS: The lungs are well inflated. There is no gross pneumothorax. S-shaped thoracolumbar scoliosis with multilevel degenerative changes. No pleural effusion. Moderate increased retrocardiac opacities may represent an infectious/inflammatory process and/or atelectasis. XR/XR chest 2V IMPRESSION: Moderate increased retrocardiac opacities may represent an infectious/inflammatory process and/or atelectasis. Recommend followup imaging in 4-6 weeks to confirm resolution and exclude underlying pathology. This study was presented today, 07/05/2023, for interpretation. PSA staff will provide results to referring provider at this time.
== END 2023-07-04 08:11 | disposition home or self-care (01) ==
LOC: HO.XRAY 08:10
PROVIDERS: PCP Internal Medicine; Visit Provider Internal Medicine
DX: R05.9 Cough, unspecified (principal)
CPT/HCPCS: 71046

== ENCOUNTER 2023-07-12 15:42 | Outpatient (AMB) | payer MEDICARE, SELFPAY ==
[2023-07-12 15:43] VITALS: BP 122/68; BMI 19.6
--- NOTE | 2023-07-12 15:43 | MHC.PC.OV ---
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 Required: No Accompanied by: Daughter Allergies aspirin [Aspirin] Allergy (Mild, Verified 07/12/23 15:49) RASH Medication List - Last Reconciled 07/12/23 by Tara Islas MD acetaminophen (Tylenol Extra Strength) 1,000 mg (2 x 500 mg) PO QID PRN citalopram 20 mg PO BID clobetasol 0.05% 1 appl topical DAILY 30 days hydrochlorothiazide 25 mg PO DAILY simvastatin 20 mg PO BEDTIME walker (Ultra-Light Rollator misc) As directed Tobacco use date assessed: 07/12/23 Fall risk assessment: No Falls in past year Last assessed Fall Risk: 07/12/23 Dental Screening Dental Screen Date: 07/12/23 Did you have a dental visit in the last 12 months?: No Did you have a dental problem in the last 6 months where you did not have access to dental care?: No Was dental information given to patient?: Patient has dentist HPI HPI Comments History of Present Illness Details This is an 83-year-old female with hypertension, dyslipidemia, mild recurrent major depression and anxiety that comes today accompanied by daughter for follow-up on her conditions. Blood pressure stable. On statins for her dyslipidemia. Still has some mild depression and anxiety and used to be on citalopram 30 mg and I did decrease to 20 mg. EKG was ordered to rule out prolonged QT interval due to citalopram. If EKG is normal deny can increase it again to 30 mg. She also had a syncopal episode in March [address] was done showing 1.9 cm right frontal meningioma. She denies any neurological deficit. MRI of the brain was order in April and she still has not done it yet. I did reorder it. Ultrasound carotid duplex was done in May 2023 a [facility] in [facility] and it was normal. Echocardiogram also still pending. Chest x-ray showed a retrocardiac opacity that could be secondary to infectious/inflammation and she completed a Zpak. No fever or cough. Chest x-ray will be repeated in a month. If abnormality still present it will be referred to pulmonology. Daughter signed healthcare proxy today. Patient is awake, alert and oriented to time, person and place. [facility] Medical History (Updated 07/12/23 @ 16:51 by Tara Islas MD) Generalized anxiety disorder Encounter for Medicare annual wellness exam Pure hypercholesterolemia Leukopenia Cough Mild recurrent major depression Left shoulder pain Osteoporosis Dyslipidemia Osteoarthritis of right knee Right leg pain Hypertension High cholesterol Right leg pain Right leg DVT Surgical History History of hand surgery H/O rectal polypectomy Family History Father Old age Mother Respiratory disease Brother Pancreatic cancer Sister No problems noted. Sister No problems noted. Daughter No problems noted. Daughter No problems noted. Social History Housing: Apartment Alcohol intake: current Alcohol intake frequency: holidays/special occasions only Alcohol type: wine Patient Tobacco Use Status: Never used Tobacco e-Cigarette/Vaping Use: Never Used Second Hand Smoke Exposure: No service: No Current occupational status: disabled Cognitive needs: No Hearing needs: No Vision needs: Yes Questionnaire PHQ-9 Over the last 2 weeks, how often have you been bothered by any of the following problems? 1. Little interest or pleasure in doing things: several days 2. Feeling down, depressed, or hopeless: nearly every day 3. Trouble falling or staying asleep, or sleeping too much: several days 4. Feeling tired or having little energy: nearly every day 5. Poor appetite or overeating: several days 6. Feeling bad about yourself - or that you are a failure or have let yourself or your family down: not at all 7. Trouble concentrating on things, such as reading the newspaper or watching television: more than half the days 8. Moving or speaking so slowly that other people could have noticed. Or the opposite - being so fidgety or restless that you have been moving around a lot more than usual: several days 9. Thoughts that you would be better off or of hurting yourself in some way: not at all Total score: 12 Depression Screening Interpretation: Positive Depression Screening Follow-up: Existing condition and In treatment Depression Screening Done: Yes 67597 - PHQ-9 Billing: Yes Source: Developed by Drs. Lázaro Vinson, Keysha Yanez, Jj Starr and colleagues, with an educational buzz from [employer]. Thrive Questionnaire Date Thrive assessed: 07/12/23 I am a: Patient What is your living situation today?: I have a steady place to live Within the past 12 months, did the food you bought not last and you didn't have the money to get more?: Never true Within the past 12 months, did you worry whether your food would run out before you got money to buy more?: Never true THRIVE Score: 0 AUDIT C Alcohol Use Questionnaire (AUDIT-C) 1. How often do you have a drink containing alcohol?: Never Total Score: 0 MARK-7 AMB Questionnaire MARK-7 Date MARK - 7 assessed: 07/12/23 Feeling nervous, anxious, or on edge: 3 = Nearly every day Not being able to stop or control worryin = Several days Worrying too much about different things: 3 = Nearly every day Trouble relaxin = Several days Being so restless that it is hard to sit still: 1 = Several days Becoming easily annoyed or irritable: 3 = Nearly every day Feeling afraid as if something awful might happen: 2 = More than half the days Total MARK-7 score (0-4 normal; 5-9 mild; 10-14 moderate; 15-21 severe): 14 Source: Developed by Drs. Lázaro Vinson, Keysha Yanez, Jj Starr and colleagues, with an educational buzz from [employer]. MARK-7 Assessment Billing MARK-7 Assessment Tool: MARK-7 Assessment 59002 Review of Systems Const All systems reviewed & are unremarkable except as noted in HPI and below Eyes Reports no additional complaints, Denies change in vision and Denies other visual disturbances Card Denies chest pain at rest, Denies chest pain with activity, Denies edema, Denies irregular heart rhythm, Denies claudication, Denies dyspnea, Denies dyspnea on exertion, Denies orthopnea, Denies paroxysmal nocturnal dyspnea and Denies slow heart rate Resp Denies cough, Denies dyspnea and Denies dyspnea on exertion GI Denies abdominal pain, Denies change in bowel habits, Denies excessive flatus, Denies nausea and Denies vomiting Denies urinary incontinence, Denies urinary hesitancy and Denies urinary urgency Musc Denies abnormal gait, Denies atrophy, Denies deformity and Denies limited range of motion Skin/Breast Denies bleeding lesions, Denies changing lesions and Denies rash Neuro Denies abnormal gait, Denies behavioral changes and Denies lack of coordination Psych Denies behavioral changes Physical exam (Primary Care) Vital Signs: Last Vital Signs BP 122/68 07/12/23 15:43 BMI result Body Mass Index 19.6 Tobacco/Smoking Status: Tobacco use Status Tobacco use date assessed 07/12/23 07/12/23 15:57 Patient Tobacco Use Status Never used Tobacco 07/12/23 15:57 e-Cigarette/Vaping Use Never Used 07/12/23 15:57 PHQ-9: PHQ-9 Score PHQ-9: Total score 12 07/12/23 16:31 Depression Screening Interpretation: Positive Depression Screening Follow-up: Existing condition and In treatment Thrive Assessment: Date of Thrive Assessment Date Thrive assessed 07/12/23 07/12/23 15:57 Eyes General: appearance normal, both eyes and all related structures Eyelids: Yes eyelids normal Conjunctivae: conjunctivae normal Neck Neck: Yes normal visual inspection and Yes supple Resp Effort & Inspection: normal respiratory effort Auscultation: clear to auscultation bilaterally Cardio Jugular venous distension: no JVD Rate: regular rate Rhythm: regular rhythm Heart sounds: S1 normal heart sound present and S2 normal heart sound present Extrem General: Yes full ROM Assessment and Plan Assessment & Plan (1) Mild recurrent major depression: Code(s): F33.0 - Major depressive disorder, recurrent, mild Plan: Continue citalopram. (2) Meningioma: Code(s): D32.9 - Benign neoplasm of meninges, unspecified Plan: MRI of the brain ordered. (3) Syncope: Code(s): R55 - Syncope and collapse Qualifiers: Syncope type: unspecified Qualified Code(s): R55 - Syncope and collapse Plan: Ultrasound carotid duplex done and was negative. MRI of the brain and echocardiogram still pending. (4) Generalized anxiety disorder: Code(s): F41.1 - Generalized anxiety disorder Plan: Continue citalopram. (5) Hypertension: Code(s): I10 - Essential (primary) hypertension Qualifiers: Hypertension type: essential hypertension Qualified Code(s): I10 - Essential (primary) hypertension Plan: Continue hydrochlorothiazide. Blood pressure goal is equal or less than 130/80. (6) Dyslipidemia: Code(s): E78.5 - Hyperlipidemia, unspecified Plan: Continue statins. Orders: Orders Comprehensive [place]. Panel Fast Today R63.1 - Polydipsia MR head/brain wo/w con Today D32.9 - Benign neoplasm of meninges, unspecified ECG 12 lead EKG Today R55 - Syncope and collapse CA echo transthoracic complete Today Coding Level of Care Code Est Pt Level 4 (58355) Diagnoses Mild recurrent major depression F33.0 Meningioma D32.9 Syncope, unspecified syncope type R55 Syncope type: unspecified Generalized anxiety disorder F41.1 Essential hypertension I10 Hypertension type: essential hypertension Dyslipidemia E78.5 Additional Codes MARK-7 Assessment Billing - MARK-7 Assessment Tool: MARK-7 Assessment 74999 ([id number]) Time Spent (min) 23
== END 2023-07-12 16:33 | disposition home or self-care (01) ==
PROVIDERS: PCP Internal Medicine; Visit Provider Internal Medicine
DX: D32.9 Benign neoplasm of meninges, unspecified (principal); F33.0 Major depressive disorder, recurrent, mild; F41.1 Generalized anxiety disorder; I10 Essential (primary) hypertension; E78.5 Hyperlipidemia, unspecified
CPT/HCPCS: 99214

== ENCOUNTER 2023-07-19 08:10 | Outpatient (REF) | payer MEDICARE, OTHER, SELFPAY ==
--- NOTE | 2023-07-19 08:16 | ECG_ITS ---
Test Reason : SYNCOPE AND COLLAPSE Blood Pressure : / mmHG Vent. Rate : 071 BPM Atrial Rate : 071 BPM P-R Int : 144 ms QRS Dur : 082 ms QT Int : 384 ms P-R-T Axes : 054 010 053 degrees QTc Int : 417 ms Normal sinus rhythm Normal ECG When compared with ECG of 05-FEB-2019 08:48, No significant change was found Referred By: Tara Islas Electronically Signed By:JOHN HERRING MD
== END 2023-07-19 08:11 | disposition home or self-care (01) ==
LOC: HO.XRAY 08:10
PROVIDERS: PCP Internal Medicine; Visit Provider Internal Medicine
DX: R55 Syncope and collapse (principal)
CPT/HCPCS: 93005

== ENCOUNTER → 2023-07-19 08:16 | Outpatient (BNV) | payer MEDICARE, SELFPAY | PROVIDERS: PCP Internal Medicine; Visit Provider Internal Medicine Cardiovascular Disease | DX: R55 Syncope and collapse (principal) | CPT/HCPCS: 93010 ==

== ENCOUNTER → 2023-08-10 08:09 | Outpatient (REF) | payer MEDICARE, OTHER, SELFPAY ==
--- NOTE | ~2023-08-10 | XR_ITS ---
EXAMINATION: XR CHEST CLINICAL INFORMATION: Nonspecific abnormal finding of lung field. COMPARISON: 07/04/2023, 09/03/2021. TECHNIQUE: 2 views of the chest were obtained. FINDINGS: The lungs are well-inflated. Heart size is normal. S-shaped thoracolumbar scoliosis with multilevel degenerative changes. Decreased previously noted retrocardiac opacities, possibly represent improving infectious/inflammatory process and/or atelectasis. No new focal consolidation to suggest pneumonia. No significant pleural effusion. XR/XR chest 2V IMPRESSION: Decreased previously noted retrocardiac opacities, possibly representing improving infectious/inflammatory process and/or atelectasis. No new focal consolidation to suggest pneumonia.
--- NOTE | 2023-08-10 09:11 | CA_ITS ---
Transthoracic Echocardiogram Patient (Last, First, Middle): Karyn Cloud, Gender: Female Date of : 1940 Age: 83 Procedure Date: 08/10/2023 Procedure Type: Transthoracic Echocardiogram Location: OP Height: 152.4 cm Weight: 54.43 kg BSA: 1.50 m2 Heart Rate: bpm BP: 120 / 68 mmHg Medical Record Librarians Teacher: TO Referring MD: Tara Islas MD Rod Placer: Mega Ordoñez MD Symptoms: R01.1 - Cardiac murmur, unspecified Study Quality: Fair ECG Rhythm: Sinus Conclusions: - 1. Normal LV ejection fraction 60 65% with impaired relaxation filling pattern 2. Mild aortic regurgitation noted 3. Normal RV systolic pressure 4. No gross pericardial effusion Findings Left Ventricle Normal left ventricular size, thickness, and systolic function. The visually estimated ejection fraction is between 60-65%. Spectral Doppler is indicative of an impaired relaxation filling pattern. E/E prime ratio is between 8 and 15 consistent with indeterminate filling pressures. Right Ventricle Normal right ventricular cavity size and systolic function. Atria Both atria are normal in size. There is no evidence of interatrial shunt. Aortic Valve Normal aortic valve structure and function. There is no aortic valve stenosis. There is mild aortic valve regurgitation. Mitral Valve There is mild anterior and posterior mitral leaflet thickening. There is no mitral valve regurgitation. There is no mitral valve stenosis. Pulmonic Valve The pulmonic valve is likely normal. There is trace pulmonic valve regurgitation. Tricuspid Valve Normal tricuspid valve structure. There is mild tricuspid valve regurgitation. The right ventricular systolic pressure is normal. The right ventricular systolic pressure is 24 mmHg. Normal right atrial pressure. There is no evidence of pulmonary hypertension. Great Vessels All visible segments of the aorta are normal in size. The pulmonary artery was not well visualized. Venous The inferior vena cava is normal in size and collapses greater than 50% with inspiration. Pericardium/Pleural There is no evidence of pericardial effusion. Prior Study Comparison No prior study available for comparison. Measurements 2D Linear Measurements IVSd: 0.85 0.6-0.9/0.6-1.0 cm LVIDd: 4.31 3.9-5.3/4.2-5.9 cm LVIDd Index: 2.87 2.4-3.2/2.2-3.1 cm/m2 LVIDs: 3.05 2.0-3.6 cm LVPWd: 0.66 0.7-1.1 cm LA Diam: 2.50 2.7-3.8/3.0-4.0 cm LAIDs Index: 1.67 1.5-2.3 cm/m2 LV Mass: 121.02 67-162/88-224 g LV Mass Index: 80.68 43-95/49-115 g/m2 LVOT Diam: 2.00 3.0+(-)1.3 cm 2D Systolic Function EF 4C: 54.80 >55% EF 2C: 63.10 >55% EF BiP: 60.70 >55% Mitral Valve MV Pk E: 0.66 MV PK A: 1.04 MV Decel Time: 162.00 E/A: 0.60 E'Lateral: 6.42 E'Medial: 6.42 E/E' Med: 10.30 E/E' Lat: 10.30 PHT: 47.00 MVA PHT: 4.68 Decel [place]: 4.11 Aortic Valve AoV Pk Elmer: 1.33 AoV Mn Elmer: 0.87 AoV VTI: 0.28 AoV Pk Grad: 7.00 Aov Mn Grad: 4.00 EDWIN Cont.VTI: 2.50 AI Pk Elmer: 3.45 AI [place]: 1.66 LVOT LVOT Pk Elmer: 1.01 LVOT Mn Elmer: 0.61 LVOT VTI: 0.22 LVOT Pk Grad: 4.00 LVOT Mn Grad: 2.00 LVOT Diam: 2.00 LVOT Area: 3.14 Diastolic Function MV Pk E: 0.66 MV Pk A: 1.04 E/A: 0.60 E'Medial: 6.42 E/E' Med: 10.30 E' Laterial: 6.42 E/E' Lat: 10.30 Right Ventricle TAPSE (mm): 30.00 TVS' Elmer: 14.50 Tricuspid Valve TR Pk Elmer: 2.27 TR Pk Grad: 21.00 RA Press: 3.00 RVSP: 24.00 Great Vessels Aorta Sinus of Valsalva: 3.00 2.0-3.[address] [place]: 1.99 1.7-3.4 cm Ao Asc: 3.00 2.1-3.4 cm Updated in Other Vendor System with Status of Final Mega Ordoñez MD electronically signed on 08/11/2023 12:03:04 PM with status of Final
== END ==
LOC: HO.CARD 08:09
PROVIDERS: PCP Internal Medicine; Visit Provider Internal Medicine
DX: R01.1 Cardiac murmur, unspecified (principal); R55 Syncope and collapse; R91.8 Other nonspecific abnormal finding of lung field
CPT/HCPCS: 71046; 93306

== ENCOUNTER → 2023-08-10 09:11 | Outpatient (BNV) | payer MEDICARE, SELFPAY | PROVIDERS: PCP Internal Medicine; Visit Provider Internal Medicine Cardiovascular Disease | DX: I35.1 Nonrheumatic aortic (valve) insufficiency (principal); R01.1 Cardiac murmur, unspecified | CPT/HCPCS: 93306 ==

== ENCOUNTER 2023-08-18 08:02 | Outpatient (REF) | payer MEDICARE, SELFPAY ==
[2023-08-18 10:08] LABS: Appearance Urine Clear; Color Urine Yellow; Glucose Urine UA Negative (Negative); Leukocyte Esterase Urine Trace (Negative); Nitrite Urine Negative (Negative); PH 6.5 (5.0-9.0); Specific Gravity - Urine 1.025 (1.005-1.025); UMIC TRIGGER UACC YES; Urine Blood Trace (Negative); Urine Ketones Negative (Negative); Urine Protein Trace mg/dL (Neg-Trace)
[2023-08-18 10:12] LABS: Bacteria Urine None Seen (None Seen); Hyaline Casts Urine 0-2 /LPF (0-2); Squamous Epithelial Cell Urine 0-2 /HPF (0-2); WBC Urine 0-5 /HPF (0-5)
== END 2023-08-18 08:03 | disposition home or self-care (01) ==
LOC: HO.LAB 08:02
PROVIDERS: PCP Internal Medicine; Visit Provider Internal Medicine
DX: R39.9 Unspecified symptoms and signs involving the genitourinary system (principal)
CPT/HCPCS: 36415; 80053; 80061; 81001; 81003

== ENCOUNTER 2023-08-22 08:27 | Outpatient (REF) | payer MEDICARE, SELFPAY ==
[2023-08-22 09:26] LABS: Appearance Urine Clear; Color Urine Yellow; Glucose Urine UA Negative (Negative); Leukocyte Esterase Urine Trace (Negative); Nitrite Urine Negative (Negative); Specific Gravity - Urine 1.025 (1.005-1.025); UMIC TRIGGER UACC YES; Urine Blood Negative (Negative); Urine Ketones Negative (Negative); Urine Protein Negative (Neg-Trace)
[2023-08-22 09:44] LABS: Bacteria Urine None Seen (None Seen); Hyaline Casts Urine 0-2 /LPF (0-2); RBC Urine 0-2 /HPF (0-2); Squamous Epithelial Cell Urine 0-2 /HPF (0-2); WBC Urine 0-5 /HPF (0-5)
[2023-08-22 09:49] LABS: Alanine Aminotransferase 16 U/L (0-31); Albumin Level 4.1 g/dL (3.5-5.0); Alkaline Phosphatase 74 U/L (39-117); Anion Gap 11 (12-20); Aspartate Amino Transferase 26 U/L (5-31); Bilirubin Total 0.6 mg/dL (0.0-1.0); Blood Urea Nitrogen 24 mg/dL (9-16); Calcium 9.6 mg/dL (8.4-10.2); Carbon Dioxide 31 mmol/L (22-29); Chloride 103 mmol/L (96-108); Cholesterol 208 mg/dL (<200); Estimated Glomerular Filt Rate > 60; Glucose Fasting 88 mg/dL (60-99); HDL Cholesterol 87 mg/dL (>40); LDL Cholesterol Calculated 109 mg/dL (<100); Potassium 3.6 mmol/L (3.3-5.1); Sodium 141 mmol/L (135-145); Total Protein 7.1 g/dL (6.5-8.0); Triglycerides 63 mg/dL (<150)
== END 2023-08-22 08:28 | disposition home or self-care (01) ==
LOC: HO.LAB 08:27
PROVIDERS: PCP Internal Medicine; Visit Provider Internal Medicine
DX: E78.5 Hyperlipidemia, unspecified (principal); R63.1 Polydipsia; R05.9 Cough, unspecified; R39.9 Unspecified symptoms and signs involving the genitourinary system
CPT/HCPCS: 36415; 80053; 80061; 81001

== ENCOUNTER 2023-10-18 13:03 | Outpatient (AMB) | payer MEDICARE, SELFPAY ==
--- NOTE | 2023-10-18 13:01 | MHC.OFFVIS ---
Intake Visit Reasons: Hematuria Intake Note: New Patient presents today for initial visit to establish treatment for : Hematuria Urology Medications: none Allergies to Antibiotic: none Blood Thinner: none PVR: 0ml's Processing Inspector Required: Yes Accompanied by: Daughter Allergies aspirin [Aspirin] Allergy (Mild, Verified 10/18/23 15:34) RASH Medication List - Last Reconciled 10/18/23 by MERARI Mejia acetaminophen (Tylenol Extra Strength) 1,000 mg (2 x 500 mg) PO QID PRN citalopram 20 mg PO BID clobetasol 0.05% 1 appl topical DAILY 30 days hydrochlorothiazide 25 mg PO DAILY simvastatin 20 mg PO BEDTIME walker (Ultra-Light Rollator misc) As directed HPI Comments Details: Karyn is a very pleasant 83-year-old South African-speaking female patient of Dr. Mon who was accompanied by her daughter at today's office visit. She has a past medical history of anxiety, hypercholesteremia, leukopenia, depression, osteoporosis, dyslipidemia, osteoarthritis, hypertension, and DVT. She presents to the office today as a new patient for microscopic hematuria. She discusses having followed up with her PCP at which time microscopic hematuria was noted and recommendations were made for urology referral for further assessment evaluation. 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 She does report episodes of nocturia however relates that she is up with her at nighttime and urinates because she is already awake. She otherwise denies urinary urgency, urinary frequency, incontinence, hematuria, dysuria, foul smelling urine, changes to urinary stream, flank pain, fever, and or chills. She is happy with her current voiding parameters. In office urinalysis results reviewed with the patient and her daughter today 2+ microscopic hematuria. Discussed further microscopic hematuria as well as potential causes for microscopic hematuria. Discussed risks and benefits of further workup versus surveillance monitoring. This was discussed at length. All questions were answered. [facility] Medical History Generalized anxiety disorder Encounter for Medicare annual wellness exam Pure hypercholesterolemia Leukopenia Cough Mild recurrent major depression Left shoulder pain Osteoporosis Dyslipidemia Osteoarthritis of right knee Right leg pain Hypertension High cholesterol Right leg pain Right leg DVT Surgical History History of hand surgery H/O rectal polypectomy Family History Father Old age Mother Respiratory disease Brother Pancreatic cancer Sister No problems noted. Sister No problems noted. Daughter No problems noted. Daughter No problems noted. Social History Housing: Apartment Alcohol intake: current Alcohol intake frequency: holidays/special occasions only Alcohol type: wine Patient Tobacco Use Status: Never used Tobacco e-Cigarette/Vaping Use: Never Used Second Hand Smoke Exposure: No service: No Current occupational status: disabled Cognitive needs: No Hearing needs: No Vision needs: Yes Review of Systems Const Reports no additional complaints Eyes Reports no additional complaints ENT Reports no additional complaints Card Reports as per HPI Resp Reports no additional complaints GI Reports no additional complaints Reports as per HPI Musc Reports as per HPI Neuro Reports as per HPI Psych Reports as per HPI Endo Reports no additional complaints Jass/Lymph Reports as per HPI Aller/Immun Reports no additional complaints Physical Exam Const General: cooperative, healthy appearing, comfortable, no acute distress, well developed, alert and awake Orientation/consciousness: patient oriented x3 Limitations: no limitations HEENT Head: Yes normal to inspection, Yes normocephalic and Yes atraumatic Ears: hearing grossly normal bilaterally Eyes General: appearance normal, both eyes and all related structures Neck Neck: Yes normal visual inspection and Yes trachea midline Chest Chest palpation & inspection: normal inspection of the chest Resp Effort & Inspection: normal respiratory effort and able to speak in complete sentences Cardio Rate: regular rate GI Inspection: Yes normal to inspection General: Yes no CVA tenderness Back/Spine/Pelvis Back: no CVA tenderness Skin General skin exam: no rashes or lesions noted Neuro General: patient oriented x3 Extrem General: Yes normal to inspection Psych Appearance: grossly normal and well kempt Mental Status: mental status grossly normal Speech and movement: Normal speech and movement present and Clear speech present Affect: normal affect Attitude: cooperative Thought process: Normal thought process present Thought content: Normal thought content present Insight: Fair insight present (Psych) Judgement: Fair judgement present (Psych) Office Procedures Post Void Residual Post Residual Void Post Void Residual (PVR): 0 [id number]-Qhcg Void Residual by ultrasound Results AMB Urinalysis, Automated UA Leukoctes 15 Dorita/uL Last Edit by Marissa Kahn on 10/18/23 13:24 UA Nitrite Negative Last Edit by Marissa Kahn on 10/18/23 13:24 UA Urobilinogen 0.2 mg/dL Last Edit by Marissa Kahn on 10/18/23 13:24 UA Protein 15 mg/dL Last Edit by Marissa Kahn on 10/18/23 13:24 UA pH 6.0 Last Edit by Marissa Kahn on 10/18/23 13:24 UA Blood 80 Kurt/uL Last Edit by Marissa Kahn on 10/18/23 13:24 UA Specific [place] 1.020 Last Edit by Marissa Kahn on 10/18/23 13:24 UA Ketone Negative Last Edit by Marissa Kahn on 10/18/23 13:24 UA Bilirubin 0 mg/dL Last Edit by Marissa Kahn on 10/18/23 13:24 UA Glucose 0 mg/dL Last Edit by Marissa Kahn on 10/18/23 13:24 Results Reviewed Results Reviewed: Laboratory Last Values Urine pH (Auto) 6.0 10/18/23 13:23 Specific [place] (Auto) 1.020 10/18/23 13:23 Urine Protein (Auto) 15 mg/dL 10/18/23 13:23 Glucose (UA)(Auto) 0 mg/dL 10/18/23 13:23 Urine Ketones (Auto) Negative 10/18/23 13:23 Urine Blood (Auto) 80 Kurt/uL 10/18/23 13:23 Urine Nitrite (Auto) Negative 10/18/23 13:23 Urine Bilirubin (Auto) 0 mg/dL 10/18/23 13:23 Urine Urobilinogen (Auto) 0.2 mg/dL 10/18/23 13:23 Leukocyte Esterase (Auto) 15 Dorita/uL 10/18/23 13:23 Assessment & Plan Assessment & Plan (1) Microscopic hematuria: Code(s): R31.29 - Other microscopic hematuria Category: Medical Plan In office urinalysis results reviewed with the patient and her daughter today; as noted above; will send for urine cytology. Discussed at length potential causes of microscopic hematuria. Discussed surveillance monitoring verses further workup of microscopic hematuria; risks and benefits of these interventions were discussed. All questions were answered Will obtain CT urogram for further assessment evaluation. BUN and creatinine ordered for imaging. Discussed workup to include in office cystoscopy however patient and family will think about this. Time follow-up in 1-3 months with imaging and labs to be completed prior; or sooner with any issues, concerns, and or questions. Orders: Orders AMB Urinalysis Automated Today Z13.9 - Encounter for screening, unspecified AMB Post Void Residual by ultrasound Today Z13.9 - Encounter for screening, unspecified Blood Urea Nitrogen Today R31.29 - Other microscopic hematuria Urine Cytology Today R31.9 - Hematuria, unspecified CT urogram Today R31.29 - Other microscopic hematuria Creatinine Today R31.29 - Other microscopic hematuria Patient Instructions: The patient had an opportunity to ask questions regarding the treatment plan. All questions were answered. Physical exam, labs, and imaging were discussed and reviewed in detail. As well as risks, benefits, and discussion of treatment choices. No major barriers to understanding were identified. The patient expressed understanding and agreement with the above treatment plan. The patient was made aware they should contact our office by phone for worsening of their current condition, the appearance of new symptoms, or with any questions or concerns. Compliance is encouraged with any medications and follow up testing that is ordered. It is a privilege to be allowed the opportunity to participate in? your urological care.? Again, if you have any questions or concerns If you have any questions or concerns please do not hesitate to contact me. The office is [phone]. This note is constructed using voice recognition software. While every effort has been made to ensure accuracy ferry hand errors may have been included. Yours sincerely, MERARI Mejia Coding Level of Care Code New Pt Level 4 (82930) Diagnoses Microscopic hematuria R31.29 CPT Codes Post Residual Void - PVR CPT Code: 18088-Tbad Void Residual by ultrasound ([id number])
== END 2023-10-18 13:47 | disposition home or self-care (01) ==
PROVIDERS: PCP Internal Medicine; Visit Provider Nurse Practitioner Family
DX: R31.29 Other microscopic hematuria (principal); Z13.9 Encounter for screening, unspecified
CPT/HCPCS: 99204

== ENCOUNTER 2023-10-18 13:03 | Outpatient (REF) | payer MEDICARE, SELFPAY ==
[2023-10-18 17:10] LABS: Urine Cytology See Pathology rpt
== END 2023-10-18 13:04 | disposition home or self-care (01) ==
LOC: HO.LNP 13:03
PROVIDERS: PCP Internal Medicine; Visit Provider Nurse Practitioner Family
DX: R31.29 Other microscopic hematuria (principal)
CPT/HCPCS: 51798; 81003; 88112; 99202

== ENCOUNTER 2023-10-19 14:54 | Outpatient (AMB) | payer MEDICARE, SELFPAY ==
[2023-10-19 14:57] VITALS: BP 116/80; BMI 18.8
--- NOTE | 2023-10-19 14:57 | MHC.PC.OV ---
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 Accompanied by: Daughter Allergies aspirin [Aspirin] Allergy (Mild, Verified 10/19/23 15:08) RASH Medication List - Last Reconciled 10/19/23 by Tara Islas MD acetaminophen (Tylenol Extra Strength) 1,000 mg (2 x 500 mg) PO QID PRN citalopram 20 mg PO BID clobetasol 0.05% 1 appl topical DAILY 30 days gabapentin 100 mg PO BID hydrochlorothiazide 25 mg PO DAILY simvastatin 20 mg PO BEDTIME walker (Ultra-Light Rollator misc) As directed Tobacco use date assessed: 07/12/23 Fall risk assessment: No Falls in past year Last assessed Fall Risk: 10/19/23 Dental Screening Dental Screen Date: 07/12/23 HPI HPI Comments History of Present Illness Details This is an 83-year-old female with meningioma, pure hypercholesterolemia, mild major depression and lumbar radiculopathy that comes today accompanied by 1 of the daughters for follow-up on her conditions. She has had her meningioma for few years and last MRI of the brain which was discussed today with daughter shows meningioma versus hyperostosis which has not changed since the last time. No neurological deficit or any symptoms related to it. Also has chronic microvascular changes and cervical disc protrusion which daughter is aware. On statins for elevated cholesterol. On citalopram for depression which is working well. Still complains of low back pain and just started gabapentin prescribed by [facility]. No chest pain or shortness on breath. Walks with no assistive device. [facility] Medical History (Updated 10/19/23 @ 18:08 by Tara Islas MD) Generalized anxiety disorder Encounter for Medicare annual wellness exam Pure hypercholesterolemia Leukopenia Cough Mild recurrent major depression Left shoulder pain Osteoporosis Dyslipidemia Osteoarthritis of right knee Right leg pain Hypertension High cholesterol Right leg pain Right leg DVT Surgical History History of hand surgery H/O rectal polypectomy Family History Father Old age Mother Respiratory disease Brother Pancreatic cancer Sister No problems noted. Sister No problems noted. Daughter No problems noted. Daughter No problems noted. Social History Housing: Apartment Alcohol intake: current Alcohol intake frequency: holidays/special occasions only Alcohol type: wine Patient Tobacco Use Status: Never used Tobacco e-Cigarette/Vaping Use: Never Used Second Hand Smoke Exposure: No service: No Current occupational status: disabled Cognitive needs: No Hearing needs: No Vision needs: Yes Questionnaire Thrive Questionnaire Date Thrive assessed: 07/12/23 MARK-7 AMB Questionnaire MARK-7 Date MARK - 7 assessed: 07/12/23 Source: Developed by Drs. Lázaro Vinson, Keysha Yanez, Jj Starr and colleagues, with an educational buzz from [employer]. Review of Systems Const All systems reviewed & are unremarkable except as noted in HPI and below Card Denies chest pain at rest, Denies chest pain with activity, Denies edema, Denies irregular heart rhythm, Denies claudication, Denies dyspnea, Denies dyspnea on exertion, Denies orthopnea, Denies paroxysmal nocturnal dyspnea and Denies slow heart rate Resp Denies cough, Denies dyspnea and Denies dyspnea on exertion Physical exam (Primary Care) Vital Signs: Last Vital Signs BP 116/80 10/19/23 14:57 BMI result Body Mass Index 18.8 Tobacco/Smoking Status: Tobacco use Status Tobacco use date assessed 07/12/23 10/19/23 15:03 Patient Tobacco Use Status Never used Tobacco 10/19/23 15:03 e-Cigarette/Vaping Use Never Used 10/19/23 15:03 Thrive Assessment: Date of Thrive Assessment Date Thrive assessed 07/12/23 10/19/23 15:03 Resp Effort & Inspection: normal respiratory effort Auscultation: clear to auscultation bilaterally Cardio Jugular venous distension: no JVD Rate: regular rate Rhythm: regular rhythm Heart sounds: S1 normal heart sound present and S2 normal heart sound present Extrem General: Yes full ROM Assessment and Plan Assessment & Plan (1) Meningioma: Code(s): D32.9 - Benign neoplasm of meninges, unspecified Plan: Repeat MRI of the brain in a year. (2) Mild recurrent major depression: Code(s): F33.0 - Major depressive disorder, recurrent, mild Plan: Continue citalopram. (3) Pure hypercholesterolemia: Code(s): E78.00 - Pure hypercholesterolemia, unspecified Plan: Continue statins. (4) Lumbar radiculopathy: Code(s): M54.16 - Radiculopathy, lumbar region Plan: Follow-up with pain management. Continue gabapentin. Take Tylenol as needed. If severe pain she can take ibuprofen 600 mg. Orders: Orders Lipid Panel Today E78.5 - Hyperlipidemia, unspecified Comprehensive [place]. Panel Fast Today I10 - Essential (primary) hypertension Coding Level of Care Code Est Pt Level 4 (20871) Complex EM visit Add On G2211 Diagnoses Meningioma D32.9 Mild recurrent major depression F33.0 Pure hypercholesterolemia E78.00 Lumbar radiculopathy M54.16 Time Spent (min) 23
== END 2023-10-19 15:29 | disposition home or self-care (01) ==
PROVIDERS: PCP Internal Medicine; Visit Provider Internal Medicine
DX: D32.9 Benign neoplasm of meninges, unspecified (principal); F33.0 Major depressive disorder, recurrent, mild; E78.00 Pure hypercholesterolemia, unspecified; M54.16 Radiculopathy, lumbar region
CPT/HCPCS: 99214; G2211

== ENCOUNTER 2023-10-28 10:30 | Emergency (ER) | payer MEDICARE, SELFPAY ==
[2023-10-28 10:36] VITALS: BP 131/98; PULSE 72; RESP 18; TEMP 36.6; O2SAT 98; BMI 19.8
[2023-10-28 12:16] VITALS: BP 128/63; PULSE 58; RESP 20; TEMP 37; O2SAT 97
--- NOTE | 2023-10-28 12:32 | ED_ITS ---
HPI - Back Pain/Injury General Chief Complaint: Back Pain/Injury Stated Complaint: sciatic nerve pain Time Seen by Provider: 10/28/23 11:10 Source: patient, family and old records reviewed Mode of arrival: ambulatory Limitations: no limitations History of Present Illness ED Provider: MOISES COX Narrative: 83 yo female with PMH of anxiety, HTN, arthritis, HLD, not on blood thinners who has been dealing with atraumatic R buttock pain radiating down R leg but no b/b incontinence no saddle anesthesia x 1 month has has spine and had MRI and is due for injection. She has tried tylenol motrin gabapentin 100mg BID but no relief. Hurts to get up and walk. 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 MD elicited complaint: back pain Onset (ago): month(s) (1) Timing: progressively worsening Severity: severe Similar Symptoms Previously: No Quality: sharp Location: lumbar spine Radiation: buttocks and right leg below the knee Exacerbating factors: movement and walking Relieving factors: none Associated symptoms: denies other symptoms Treatments prior to arrival: NSAIDS, acetaminophen and prescription analgesics Work related injury: No Related Data Home Medications ?Medication ?Instructions ?Recorded ?Confirmed gabapentin 100 mg capsule 100 mg PO BID 10/19/23 10/19/23 Previous Rx's ?Medication ?Instructions ?Recorded walker (Ultra-Light Rollator misc) #1 ea 08/06/20 clobetasol 0.05 % topical gel 1 appl topical DAILY 30 days #30 12/13/20 grams simvastatin 20 mg tablet 20 mg PO BEDTIME #90 tabs 01/08/23 citalopram 20 mg tablet 20 mg PO BID #60 tabs 08/09/23 hydrochlorothiazide 25 mg tablet 25 mg PO DAILY #90 tabs 08/09/23 acetaminophen 500 mg tablet 1,000 mg (2 x 500 mg) PO QID PRN 10/11/23 (Tylenol Extra Strength) fever or pain #14 tabs Allergies Allergy/AdvReac Type Severity Reaction Status Date / Time aspirin [Aspirin] Allergy Mild RASH Verified 10/28/23 10:37 Review of Systems Review of Systems: Constitutional : No Weight loss, No Fever, No Chills, ENT/Mouth : No Hearing loss, No Ear Pain, No Nasal Congestion, No Sinus Pain, No Hoarseness, No sore throat, No Rhinorrhea, No Swallowing Difficulty Cardiovascular : No Chest Pain, No SOB Respiratory : No Cough, No Dyspnea Gastrointestinal : No Nausea, No Vomiting, No Diarrhea, No abdominal Pain, No Hematochezia, No Melena Genitourinary : No Dysuria, No Urinary Frequency, No Hematuria, No Urinary Incontinence, Musculoskeletal : positive back pain Skin : No Skin Lesions, No rash Neuro : No Weakness, No Numbness, No Paresthesias, no loss of bowel or bladder incontinence, no saddle anesthesia all other systems reviewed and are negative [facility] Past Medical History Attestation statement: The following information was validated with the patient. Source: old records reviewed Medical History Generalized anxiety disorder Encounter for Medicare annual wellness exam Pure hypercholesterolemia Leukopenia Cough Mild recurrent major depression Left shoulder pain Osteoporosis Dyslipidemia Osteoarthritis of right knee Right leg pain Hypertension High cholesterol Right leg pain Right leg DVT Surgical History History of hand surgery H/O rectal polypectomy Family History Family History Father Old age Mother Respiratory disease Brother Pancreatic cancer Sister No problems noted. Sister No problems noted. Daughter No problems noted. Daughter No problems noted. Social History Social History Housing: Apartment Alcohol intake: current Alcohol intake frequency: holidays/special occasions only Alcohol type: wine Patient Tobacco Use Status: Never used Tobacco e-Cigarette/Vaping Use: Never Used Second Hand Smoke Exposure: No Advance Directives: Yes Advance Directives Information Provided: No Advance Directives on File: No Do you have a plan to hurt others: No Plan service: No Current occupational status: disabled Cognitive needs: No Hearing needs: No Vision needs: Yes Physical Exam Vital Signs: Vital Signs: Last Vital Signs Temp 98.6 F 10/28/23 12:16 Pulse 58 10/28/23 12:16 Resp 20 10/28/23 12:16 BP 128/63 10/28/23 12:16 Pulse Ox 97 10/28/23 12:16 O2 Del Method Room Air 10/28/23 12:16 BMI result Body Mass Index 19.8 Appearance: Alert. Oriented X3. No acute distress. Eyes: Pupils equal, round and reactive to light. ENT: Pharynx normal. Neck: Normal inspection. Neck supple. CVS: Normal heart rate and rhythm. Pulses normal. Respiratory: No respiratory distress. Breath sounds normal. Abdomen: Soft and nontender. Back: ttp R buttock reproduces pain Skin: Skin warm and dry. Normal skin color. Normal skin turgor. Extremities: No lower extremity edema. No calf ttp Neuro: Oriented X 3. No motor deficit. No sensory deficit. SILT inner thigh pain with walking NV intact distally good strenght both legs Medications Administered Discontinued Medications Generic Name Dose Route Start Last Admin Trade Name Freq PRN Reason Stop Dose Admin Ondansetron HCl 4 mg 10/28/23 12:52 10/28/23 13:03 Ondansetron Odt 4 Mg Tab.Rapdis TRANSLINGU 10/28/23 12:53 4 mg ONCE ONE Administration Oxycodone HCl 2.5 mg 10/28/23 12:52 10/28/23 13:03 Oxycodone Hcl Immed Release 5 Mg Tablet PO 10/28/23 12:53 2.5 mg ONCE ONE Administration Medical Decision Making Medical Decision Making MDM Narrative: 83 yo female with PMH of anxiety, HTN, arthritis, HLD, not on blood thinners here with c/o R sided sciatica that raidiates down the leg she has no b/b incontinence no saddle anesthesia and has had MRI and spine follow up at this time will attempt to provide tension release and realing the pelvis will not use any cavitation or cracking procedures. Also offered low dose oxycodone. Daughter is going to call PCP now for PT referral. Patient is asking to go home. Differential Diagnosis Differential Diagnoses: The differential diagnosis associated with the presenta tion includes sciatica, lumbar radiculopathy Admission/Observation Consideration of admission/observation: Escalation of care including admission/observation considered able to ambulate should be managed with PT and injections Radiology Impression Radiologist Impression: outpatient MRI no thecal sac compression degeneration and nerve root impingements Independent Historian Clinical information obtained from an independent historian. History obtained from or confirmed by: Other (daughter) Prescription Management I considered prescription management with: Pain Medication Discharge Plan Discharge Clinical Impression: Sciatica Qualifiers: Laterality: right Qualified Code(s): M54.31 - Sciatica, right side Patient Disposition: Home, Self-Care Instructions: Sciatica (ED) Additional Instructions: follow up with your spine doctor and PCP you need a referral to physical therapy. return for any numbness, weakness, loss of control of bowel or bladder. take all medications as prescribed. Prescriptions: No Action clobetasol 0.05 % gel 1 appl topical DAILY 30 Days Qty: 30 1RF simvastatin 20 mg tablet 20 mg PO BEDTIME Qty: 90 3RF citalopram 20 mg tablet 20 mg PO BID Qty: 60 3RF hydrochlorothiazide 25 mg tablet 25 mg PO DAILY Qty: 90 1RF acetaminophen [Tylenol Extra Strength] 500 mg tablet 1,000 mg PO QID PRN (Reason: fever or pain) Qty: 14 0RF (DME) Ultra-Light Rollator Misc See Rx Instructions .ROUTE .MEDSUPPLY Qty: 1 0RF Rx Instructions: As directed gabapentin 100 mg capsule 100 mg PO BID Print Language: Slovenian
[2023-10-28] MEDS: Ondansetron ODT 4 MG TAB.RAPDIS TRANSLINGU (13:03)
[2023-10-28] MEDS: oxyCODONE HCl Immed Release 5 MG TABLET 2.5 MG PO (13:03)
[2023-10-28 14:36] VITALS: BP 135/71; PULSE 63; RESP 14; TEMP 36.5; O2SAT 96
[2023-10-28 14:46] VITALS: BP 135/71; PULSE 63; RESP 14; TEMP 36.5; O2SAT 96
== END 2023-10-28 14:46 | disposition home or self-care (01) ==
PROVIDERS: Emergency Provider Emergency Medicine; PCP Internal Medicine
DX: M54.31 Sciatica, right side (principal); Z79.899 Other long term (current) drug therapy
CPT/HCPCS: 99283

== ENCOUNTER 2024-02-17 13:24 | Outpatient (AMB) | payer MEDICARE, SELFPAY ==
[2024-02-17 13:35] VITALS: BP 134/70; PULSE 67; O2SAT 97; BMI 19.6
--- NOTE | 2024-02-17 13:35 | A.OFFPC_ITS ---
Vital Signs 3 02/17/24 13:35 Height 5 ft 2 in Weight 107 lb BMI 19.6 BP 134/70 Blood Pressure Location Lt brachial Position Sitting Pulse 67 Pulse Source Pulse Oximeter Pulse Oximetry (%) 97 Oxygen Delivery Method Room Air Intake Visit Reasons: Discharge 02/05 [facility] Intake Note: Patients daughter reports that at rehab they stopped her blood pressure medication. They are having major concerns about her antidepressant medication and would like that resolved today. Configuration Management Advisor Required: No Accompanied by: Daughter Allergies aspirin [Aspirin] Allergy (Mild, Verified 10/28/23 10:37) RASH Tobacco use date assessed: 07/12/23 Fall risk assessment: 1 Fall in past year Last assessed Fall Risk: 02/17/24 Dental Screening Dental Screen Date: 07/12/23 HPI HPI Comments 2 History of Present Illness0 Details 83 y/o female patient who presents to [facility] for SNF discharge follow up. She was admitted at [facility] facility on 01/24/24 after she fell and broke her right hip. S/p right hip hemiarthoplasty. She was dscharged home 02/05/24 with family. She is accompanied by daughter who had few concerns today. Daughter asking if we can discontinue Citalopram, because she thinks is causing patient to have Hallucinations and Anxiety attacks. She is asking if we can switch to Zoloft since this worked better for her Sibling. Patient has been taking Citalopran for few years now, and current dose is 20 mg daily. [facility] Medical History Generalized anxiety disorder Encounter for Medicare annual wellness exam Pure hypercholesterolemia Leukopenia Cough Mild recurrent major depression Left shoulder pain Osteoporosis Dyslipidemia Osteoarthritis of right knee Right leg pain Hypertension High cholesterol Right leg pain Right leg DVT Surgical History History of hand surgery H/O rectal polypectomy Family History Father Old age Mother Respiratory disease Brother Pancreatic cancer Sister No problems noted. Sister No problems noted. Daughter No problems noted. Daughter No problems noted. Social History Housing: Apartment Alcohol intake: current Alcohol intake frequency: holidays/special occasions only Alcohol type: wine Patient Tobacco Use Status: Never used Tobacco Tobacco use type: Cigarette e-Cigarette/Vaping Use: Never Used Second Hand Smoke Exposure: No service: No Current occupational status: disabled Cognitive needs: No Hearing needs: No Vision needs: Yes Questionnaire PHQ-9 Over the last 2 weeks, how often have you been bothered by any of the following problems? 1. Little interest or pleasure in doing things: several days 2. Feeling down, depressed, or hopeless: nearly every day 3. Trouble falling or staying asleep, or sleeping too much: several days 4. Feeling tired or having little energy: nearly every day 5. Poor appetite or overeating: several days 6. Feeling bad about yourself - or that you are a failure or have let yourself or your family down: not at all 7. Trouble concentrating on things, such as reading the newspaper or watching television: more than half the days 8. Moving or speaking so slowly that other people could have noticed. Or the opposite - being so fidgety or restless that you have been moving around a lot more than usual: several days 9. Thoughts that you would be better off or of hurting yourself in some way: not at all Total score: 12 Depression Screening Interpretation: Positive Depression Screening Follow-up: Existing condition and In treatment Depression Screening Done: Yes [id number] - PHQ-9 Billing: Yes Source: Developed by Drs. Lázaro Vinson, Jj Moser and colleagues, with an educational buzz from [employer]. Thrive Questionnaire Date Thrive assessed: 07/12/23 Are you currently unemployed and looking for a job?: No AUDIT C Alcohol Use Questionnaire (AUDIT-C) 1. How often do you have a drink containing alcohol?: Never Total Score: 0 MARK-7 AMB Questionnaire MARK-7 Date MARK - 7 assessed: 07/12/23 Source: Developed by Keysha Ross Kurt Kroenke and colleagues, with an educational buzz from [employer]. Review of Systems Const All systems reviewed & are unremarkable except as noted in HPI and below Physical exam (Primary Care) Vital Signs: Last Vital Signs Pulse 67 02/17/24 13:35 BP 134/70 02/17/24 13:35 Pulse Ox 97 02/17/24 13:35 Oxygen Delivery Method Room Air 02/17/24 13:35 BMI result Body Mass Index 19.6 Tobacco/Smoking Status: Tobacco use Status Tobacco use date assessed 07/12/23 02/17/24 13:36 Patient Tobacco Use Status Never used Tobacco 02/17/24 13:36 Tobacco use type Cigarette 02/17/24 13:43 e-Cigarette/Vaping Use Never Used 02/17/24 13:36 PHQ-9: PHQ-9 Score PHQ-9: Total score 12 02/17/24 13:43 Depression Screening Interpretation: Positive Depression Screening Follow-up: Existing condition and In treatment Thrive Assessment: Date of Thrive Assessment Date Thrive assessed 07/12/23 02/17/24 13:36 Const General: cooperative and no acute distress Orientation/consciousness: patient oriented x3 Resp Effort & Inspection: normal respiratory effort Auscultation: clear to auscultation bilaterally Cardio Heart sounds: S1 normal heart sound present and S2 normal heart sound present Skin Wounds: wounds noted (Surgical incision right lateral Hip) Neuro Other: Ambulates with a walker General: patient oriented x3 and moves all extremities Extrem Right lower extremity: hip/thigh Details: tenderness Location: of the hip (mild tenderness at the incision site. ) and abnormal ROM (limited ROM due to pain from surgery); no swelling Left lower extremity: normal to inspection and full ROM Upper/lower leg/hip images: 2 1. Large incisional scar healing well. Skin dry, pink in color with mild tenderness. Wound covered with Steris. Psych Speech and movement: Normal speech and movement present Coding Level of Care Code Est Pt Level 4 (47211) Diagnoses Mild recurrent major depression F33.0 S/P hip hemiarthroplasty Z96.649 Time Spent (min) 20 Comment Spent reviewing hospital notes and patient education. Assessment & Plan Assessment & Plan (1) Mild recurrent major depression: Code(s): F33.0 - Major depressive disorder, recurrent, mild Category: Medical Plan: Pt to Taper Citalopram (instructions given) Discussed the antidepressant discontinuation syndrome and what to watch for Started Zoloft 25 mg per request Will have Pt f/u with PCP in 4 weeks. (2) S/P hip hemiarthroplasty: Code(s): Z96.649 - Presence of unspecified artificial hip joint Plan: Continue with PT and OT Continue f/u with Orthopedics Acetaminophen for pain relief. Medications: New 2 sertraline (Zoloft) 25 mg PO DAILY 90 tabs 0RF F33.0 - Major depressive disorder, recurrent, mild Discontinued 2 citalopram Discontinued Reason: No Longer Medically Relevant 20 mg PO BID 60 tabs 1RF
== END 2024-02-17 14:18 | disposition home or self-care (01) ==
PROVIDERS: PCP Internal Medicine; Visit Provider Nurse Practitioner Family
DX: F33.0 Major depressive disorder, recurrent, mild (principal); Z96.649 Presence of unspecified artificial hip joint

== ENCOUNTER → 2024-02-17 13:24 | Outpatient (BNVA) | payer MEDICARE, SELFPAY | PROVIDERS: PCP Internal Medicine; Visit Provider Nurse Practitioner Family | DX: F33.0 Major depressive disorder, recurrent, mild (principal); Z96.641 Presence of right artificial hip joint | CPT/HCPCS: 96127; 99212 ==

== ENCOUNTER 2024-03-27 16:41 | Outpatient (AMB) | payer MEDICARE, SELFPAY ==
--- NOTE | 2024-03-27 16:43 | MHC.PC.OV ---
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: No Accompanied by: Daughter Allergies aspirin [Aspirin] Allergy (Mild, Verified 03/27/24 17:07) RASH Medication List - Last Reconciled 03/27/24 by Tara Islas MD acetaminophen (Tylenol Extra Strength) 1,000 mg (2 x 500 mg) PO QID PRN gabapentin 100 mg PO BID hydrochlorothiazide 25 mg PO DAILY sertraline 50 mg PO DAILY 30 days simvastatin 20 mg PO BEDTIME walker (Ultra-Light Rollator misc) As directed Tobacco use date assessed: 07/12/23 Fall risk assessment: No Falls in past year Last assessed Fall Risk: 03/27/24 Dental Screening Dental Screen Date: 03/27/24 Did you have a dental visit in the last 12 months?: No Did you have a dental problem in the last 6 months where you did not have access to dental care?: No Was dental information given to patient?: Patient has dentist HPI HPI Comments History of Present Illness Details The patient is an 83-year-old female presenting with depressive symptoms for her physical exam accompanied by daughter Cassandra. The depression has been severe, with the patient feeling very low and occasionally experiencing headaches. She reports that she no longer feels as anxious or cries as often since starting sertraline at 50 mg, but the depressive symptoms persist daily. This has been ongoing, and her current medication, sertraline, will be increased to 75 mg daily to manage the depressive symptoms better. There is no history of smoking or significant alcohol use. The patient has had multiple surgeries, including a partial hip replacement on the right side and hand surgery due to fractures, in addition to rectal polyp removal. Past imaging showed hyperostosis frontalis and chronic changes in blood vessels consistent with aging, without confirmed meningioma. This was from the MRI of the brain done in August which was discussed today with daughter. Had a CT of the brain done in January in which results are not available and we will ask for it. [facility] Medical History (Updated 03/27/24 @ 17:35 by Tara Islas MD) Meningioma Generalized anxiety disorder Encounter for Medicare annual wellness exam Pure hypercholesterolemia Leukopenia Cough Mild recurrent major depression Left shoulder pain Osteoporosis Dyslipidemia Osteoarthritis of right knee Right leg pain Hypertension High cholesterol Right leg pain Right leg DVT Surgical History (Updated 03/27/24 @ 17:12 by Tara Islas MD) History of right hip replacement History of hand surgery H/O rectal polypectomy Family History Father Old age Mother Respiratory disease Brother Pancreatic cancer Sister No problems noted. Sister No problems noted. Daughter No problems noted. Daughter No problems noted. Social History Housing: Apartment Alcohol intake: current Alcohol intake frequency: holidays/special occasions only Alcohol type: wine Patient Tobacco Use Status: Never used Tobacco Tobacco use type: Cigarette e-Cigarette/Vaping Use: Never Used Second Hand Smoke Exposure: No service: No Current occupational status: disabled Cognitive needs: No Hearing needs: No Vision needs: Yes Questionnaire PHQ-9 Over the last 2 weeks, how often have you been bothered by any of the following problems? 1. Little interest or pleasure in doing things: nearly every day 2. Feeling down, depressed, or hopeless: nearly every day 3. Trouble falling or staying asleep, or sleeping too much: several days 4. Feeling tired or having little energy: several days 5. Poor appetite or overeating: not at all 6. Feeling bad about yourself - or that you are a failure or have let yourself or your family down: several days 7. Trouble concentrating on things, such as reading the newspaper or watching television: several days 8. Moving or speaking so slowly that other people could have noticed. Or the opposite - being so fidgety or restless that you have been moving around a lot more than usual: not at all 9. Thoughts that you would be better off or of hurting yourself in some way: not at all Total score: 10 Depression Screening Interpretation: Positive Depression Screening Follow-up: Existing condition, In treatment and Follow-up Visit Requested Depression Screening Done: Yes [id number] - PHQ-9 Billing: Yes Source: Developed by Drs. Lázaro Vinson, Keysha Yanez, Jj Starr and colleagues, with an educational buzz from [employer]. Thrive Questionnaire Date Thrive assessed: 03/20/24 I am a: Parent/Caregiver What is your living situation today?: I have a steady place to live Within the past 12 months, did the food you bought not last and you didn't have the money to get more?: Never true Within the past 12 months, did you worry whether your food would run out before you got money to buy more?: Never true Do you have trouble paying for medicines?: No Do you have trouble getting transportation to medical appointments?: Yes Do you have trouble paying your heating and electricity bill?: No Do you have trouble taking care of your child, family member or friend?: Yes Do you have trouble with day-to-day activities such as bathing, preparing meals, shopping, managing finances, etc.?: Yes Are you currently unemployed and looking for a job?: No Are you interested in more education?: I choose not to answer this question Please select the resources that you would like help with: None Currently or been in a relationship where the following occur: No concerns reported THRIVE Score: 1 AUDIT C Alcohol Use Questionnaire (AUDIT-C) 1. How often do you have a drink containing alcohol?: Never Total Score: 0 Score Reviewed/Action Taken: No MARK-7 AMB Questionnaire MARK-7 Date MARK - 7 assessed: 07/12/23 Feeling nervous, anxious, or on edge: 3 = Nearly every day Not being able to stop or control worryin = Nearly every day Worrying too much about different things: 3 = Nearly every day Trouble relaxin = Nearly every day Being so restless that it is hard to sit still: 1 = Several days Becoming easily annoyed or irritable: 3 = Nearly every day Feeling afraid as if something awful might happen: 3 = Nearly every day Total MARK-7 score (0-4 normal; 5-9 mild; 10-14 moderate; 15-21 severe): 19 Source: Developed by Drs. Lázaro Vinson, Keysha Yanez, Jj Starr and colleagues, with an educational buzz from [employer]. MARK-7 Assessment Billing MARK-7 Assessment Tool: MARK-7 Assessment 78783 Review of Systems Const All systems reviewed & are unremarkable except as noted in HPI and below Card Denies chest pain at rest, Denies chest pain with activity, Denies edema, Denies irregular heart rhythm, Denies claudication, Denies dyspnea, Denies dyspnea on exertion, Denies orthopnea, Denies paroxysmal nocturnal dyspnea and Denies slow heart rate Resp Denies cough, Denies dyspnea and Denies dyspnea on exertion Physical exam (Primary Care) Vital Signs: Last Vital Signs BP 114/68 03/27/24 16:49 BMI result Body Mass Index 19.9 Tobacco/Smoking Status: Tobacco use Status Tobacco use date assessed 07/12/23 03/27/24 16:53 Patient Tobacco Use Status Never used Tobacco 03/27/24 16:53 Tobacco use type Cigarette 03/27/24 16:53 e-Cigarette/Vaping Use Never Used 03/27/24 16:53 PHQ-9: PHQ-9 Score PHQ-9: Total score 10 03/27/24 16:53 Depression Screening Interpretation: Positive Depression Screening Follow-up: Existing condition, In treatment and Follow-up Visit Requested Thrive Assessment: Date of Thrive Assessment Date Thrive assessed 03/20/24 03/27/24 16:53 Currently or been in a relationship where the following occur: No concerns reported Const Limitations: ambulation with walker HENMT Head: Yes normal to inspection, Yes normocephalic and Yes atraumatic Ears: external ears normal Neck Neck: Yes normal visual inspection and Yes supple Resp Effort & Inspection: normal respiratory effort Auscultation: clear to auscultation bilaterally Cardio Jugular venous distension: no JVD Rate: regular rate Rhythm: regular rhythm Heart sounds: S1 normal heart sound present and S2 normal heart sound present GI Inspection: Yes normal to inspection Palpation (GI): Soft to palpation and nontender Auscultation: normal bowel sounds Skin General skin exam: no rashes or lesions noted Extrem General: Yes full ROM Coding Level of Care Code Est Pt Level 3 (77747) Est Pt Prev Care >65y(14757) Diagnoses Physical exam Z00.00 Mild recurrent major depression F33.0 Memory loss R41.3 Additional Codes PHQ-9 - 84230 - PHQ-9 Billing: Yes ([id number]) MARK-7 Assessment Billing - MARK-7 Assessment Tool: MARK-7 Assessment 49697 ([id number]) Time Spent (min) 33 Assessment & Plan Assessment & Plan (1) Physical exam: Code(s): Z00.00 - Encounter for general adult medical examination without abnormal findings Category: Medical (2) Mild recurrent major depression: Code(s): F33.0 - Major depressive disorder, recurrent, mild Category: Medical (3) Memory loss: Code(s): R41.3 - Other amnesia Category: Medical Plan - Physical exam: Repeat in a year. No need for colonoscopy, Pap smear or mammogram due to age. - Depression: Increase sertraline to 75 mg daily to help manage the patient's severe depressive symptoms, with follow-up to monitor effectiveness. - Hyperostosis Frontalis: No immediate intervention required, continue monitoring and consider further evaluation if symptoms progress. - Elevated Cholesterol: Continue simvastatin at 20 mg and monitor lipid levels with upcoming laboratory tests. - Memory Concerns: Arrange for a neurology referral; check thyroid function and vitamin levels as part of memory assessment. Patient was informed and verbally consented to the use of an ambient scribe for clinic note documentation during this visit. During the visit, we discussed the patient's ongoing depressive symptoms and the plan to increase the sertraline dosage for better symptom control. We examined her history of surgeries and imaging results, noting the presence of hyperostosis frontalis with no confirmed meningioma at this time. We talked about the need for monitoring cholesterol and liver function, alongside a planned neurology consultation to address memory concerns. The patient was advised to undergo further laboratory tests to ensure comprehensive management of her conditions. Orders: Referrals Neurology Referral R41.3 - Other amnesia Medications: New sertraline 25 mg PO DAILY 90 days 90 tabs 1RF Discontinued hydrochlorothiazide Discontinued Reason: Patient Completed Course 25 mg PO DAILY 90 tabs 1RF Patient Instructions: - Increase sertraline to 75 mg daily as directed. - Schedule laboratory tests, including cholesterol, liver function, kidney function, thyroid function, and vitamin B12 levels. - Follow-up on neurologist consultation for memory evaluation. - Continue simvastatin for cholesterol management. - Avoid aspirin due to the history of allergic reactions.
[2024-03-27 16:49] VITALS: BP 114/68; BMI 19.9
== END 2024-03-27 17:30 | disposition home or self-care (01) ==
PROVIDERS: PCP Internal Medicine; Visit Provider Internal Medicine
DX: Z00.00 Encounter for general adult medical examination without abnormal findings (principal); F33.0 Major depressive disorder, recurrent, mild; R41.3 Other amnesia

== ENCOUNTER → 2024-03-27 16:41 | Outpatient (BNVA) | payer MEDICARE, SELFPAY | PROVIDERS: PCP Internal Medicine; Visit Provider Internal Medicine | DX: Z00.01 Encounter for general adult medical examination with abnormal findings (principal); F33.0 Major depressive disorder, recurrent, mild; R41.3 Other amnesia; E78.5 Hyperlipidemia, unspecified; I10 Essential (primary) hypertension | CPT/HCPCS: 96127; 99212; 99397 ==

== ENCOUNTER 2024-06-29 09:31 | Outpatient (AMB) | payer MEDICARE, SELFPAY ==
--- NOTE | 2024-06-29 09:32 | A.SPINEOV_ITS ---
Vital Signs 06/29/24 09:36 Height 5 ft 1 in Weight 112 lb BMI 21.2 Intake Visit Reasons: LBP Intake Note: Ms. Cloud is here today c/o low back pain. In Store Marketing Associate Required: No Allergies aspirin [Aspirin] Allergy (Mild, Verified 06/29/24 09:37) RASH Physical Exam Vital Signs: BMI result Body Mass Index 21.2 Assessment & Plan Assessment & Plan (1) Lumbar back pain with radiculopathy affecting lower extremity: Code(s): M54.16 - Radiculopathy, lumbar region Category: Medical Plan: Dear colleague On June 29, 2024 I saw for 2nd opinion your patient Karyn Cloud with a chief complaint of severe right leg pain. HPI: This 84 year old female has a 1 year history of pain radiating down her legs. Initially it was both legs but currently it is only the right leg. The pain radiates from the back down to the outside of her thigh to the outside of her right lower leg. The pain is severe with sitting. Moving around improves the symptoms. It is hard to get out of bed. However her sleep is not interrupted by the pain. She denies back pain. She had an uncomplicated parti al hip replacement on 01/19 2024 . She denies weakness or numbness. She had a consult with Dr. Harvey who propose to do a large invasive anterior and posterior lumbar fusion. The come to see me for 2nd opinion. The following conservative treatment options were tried without success antiinflammatories, tylenol, physician guided home exercise plan, cortisone shots PMH: Early stage dementia, hypercholesterolemia Medications: Gabapentin, simvastatin, sertraline Allergies: NKDA Social history: She recently lost her in May. Nonsmoker Physical Exam: Pleasant female. Height 5'1 weight 112 lb. Straight leg raise produces pain radiating to her right leg. Neurological exam for motor sensory and reflexes are symmetrically intact. She ambulates with a walker. Radiological Studies: MRI done at [place] on 10/24/2023 shows a grade 1 L4-5 spondylolisthesis that shows an increase with flexion and extension on regular x-ray. Moreover it shows severe L4-5 spinal stenosis and lateral recess stenosis. Impression/Plan: This 84-year-old female suffering from right lumbar radiculopathy due L4-5 spondylolisthesis and associated severe L4-5 central spinal stenosis. She is not responding to conservative measurements, which makes her surgical candidate. Her bone quality is suboptimal and therefore my 1st surgical option be a simple unilateral decompression. There is a minimal risk that this will result in additional instability, which would translate in a fusion. The unilateral decompression would be done in day surgery and should have a short recovery. I discussed the procedure, the rationale for this surgical option and expected postoperative course with the patient and her daughter. They are going to discuss it and will let my office know if she wants to proceed. Thank you for allowing me to participate in your patients care. total time spent was 50 minutes in counseling ,coordination of plan, personal review of imaging, surgical decision making and subsequent plan Leroy Bautista MD, PhD Spine Fellowship Trained Neurosurgeon Director, [facility] (2) Spondylolisthesis, lumbar region: Code(s): M43.16 - Spondylolisthesis, lumbar region Category: Medical Plan W Orders: Orders XR lumbar spine 4V min Today M43.16 - Spondylolisthesis, lumbar region, M54.16 - Radiculopathy, lumbar region Coding Level of Care Code New Pt Level 4 (64140) Diagnoses Lumbar back pain with radiculopathy affecting lower extremity M54.16 Spondylolisthesis, lumbar region M43.16
[2024-06-29 09:36] VITALS: BMI 21.2
--- OUTSIDE RECORDS SUMMARY | 2024-06-29 10:03 | XMS_ITS ---
Author Organization [facility] [place] Address [address] [place] [address] Care Team Providers Care Machine Oiler Name Role Phone Michael NICHOLAS, Tara Primary Care Provider Unavail able Jose Maria Thompson Unavailable [phone] Allergies No Known Allergies REASON FOR VISIT At Risk Footcare, Painful Nail(s) aggravated by shoes and causing difficulty standing/walking. Medications Medication SIG (Take, Route, Frequency, Duration) Notes Start Date End Date Status hydroCHLOROthiazide 25 MG 1 tablet in th e morning Orally Once a day for 30 day(s) Not-Taking Simvastatin 20 MG 1 tablet in the evening Orally Once a day for 30 day(s) Not-Taking Omeprazole 20 MG 1 capsule 30 minutes before morning meal Orally Once a day for 30 day(s) Not-Taking Citalopram Hydrobromide 30 MG 1 capsule Orally Once a day for 30 day(s) Not-Taking Orthopedic Extra Depth Shoes With Custom Heat Molded Multidensity Innersoles 1 Pair shoes with 3 Pair custom heat molded innersoles Wear Daily for 365 days 06/30/2023 Active Omeprazole 20 MG 1 capsule 30 minutes before morning meal Orally Once a day for 30 day(s) Active hydroCHLOROthiazide 25 MG 1 tablet in th e morning Orally Once a day for 30 day(s) Active Citalopram Hydrobromide 30 MG 1 capsule Orally Once a day for 30 day(s) Active Simvastatin 20 MG 1 tablet in the evening Orally Once a day for 30 day(s) Active Social History Tobacco Use: Social History Observation Description Date Details (start date - stop date) Never Smoker NA - NA Alcohol Screen Question Answer Notes Did you have a drink containing alcohol in the p ast year? No Points 0 Interpretation Negative Tobacco use other than smoking: Question Answer Notes Are you an other tobacco user? No Tobacco Control (Standard) Question Answer Notes Tobacco use: Nonsmoker Additional Findings: Tobacco non-user Current no nsmoker Vital Signs Height 5 ft in 06/11/2024 Weight 108 lbs 06/11/2024 BMI 21.09 kg/m2 06/11/2024 Blood pressure systolic 121 mm Hg 06/11/19 25 Blood pressure diastolic 68 mm Hg 025 Procedures Procedure Date Ordered Date Performed Result Body Sit e 21551-KXXYWXK NAIL, 6 OR MORE 06/11/2024 N/A 84239-BXET SKIN LESIONS, OVER 4 06/11/2024 N/A Encounters Encounter Location Date Provider Diagnosis [facility] [address] [place] [address] 06/11/2024 Jose Maria Thompson Atherosclerosis of [place] artery of both lower extremities, with unspecified presence of clinical manifestation I70.203 ; Tinea unguium B35.1 ; Pain in right toe(s) M79.674 and Pain in left toe(s) M79.675 Assessments Encounter Date Diagnosis (ICD Code) Assessment Notes Treatment Notes Treatment Clinical Notes Section Notes 06/11/2024 Atherosclerosis of [place] artery of both lower extremities, with unspecified presence of clinical manifestation (ICD-10 - I70.203) 06/11/2024 Tinea unguium (ICD-10 - B35.1) 06/11/2024 Pain in right toe(s) (ICD-10 - M79.674) 06/11/2024 Pain in left toe(s) (ICD-10 - M79.675) Plan Of Treatment Pending Test Test Name Order Date 07880-PBEACRA NAIL, 6 OR MORE 06/11/2024 91597-DJJN SKIN LESIONS, OVER 4 06/11/19 25 Next Appt Details Follow Up: prn, Reason: Provider Name:Jose Maria Thompson , 09/06/2024 04:00:00 PM, [address], [address], [place], [address], Procedure Notes * Category Sub-Category Detail Notes Debride Nail 6-10 Nail debridement Due to the cl inical pathology outlined in the exam findings, performance of this nail treatment is medically necessary as its management by an unskilled/untrained nonprofessional would put this patients foot and overall health at risk. Therefore, debridement to affected nail(s), as described in exam ( TA, T1, T2, T3, T4, T5, T6, T7, T8, T9 ), was performed exclusively by the physician of record to reduce/remove overall nail length, girth, thickness, subungual debris, and necrotic tissue, by manual and/or electrical means through the use of a nail nipper and/or dremel-type tool grinder operator external, to a more viable healthy nail plate or bed tissue 6-10 nails in total. Silver nitrate was used for any petechial bleeding as necessary. Definitive antifungal treatment options, both pharmaceutical and surgical, have been reviewed and discussed with the patient. The patient solely prefers the use of intermittent/as needed professional debridement services for their nail condition and understands the need for additional periodic treatments to maintain effectiveness in symptomatic relief - 32271 Keratoma Treatment Parring or Cutting o f Benign Hyperkeratotic Lesion(s) (-57) More than 4 Lesions - Due to the at risk nature of the patients medical condition as documented in the exam findings, performance of this keratoderma treatment is medically necessary as its management by an unskilled/untrained nonprofessional would put this patients foot and overall health at risk. Therefore, the benign hyperkeratotic lesions, ( 11 ) in total, locations as stated and described in the exam ( Medial, IPJ, TA, Dorsal, PIPJ, T1, Medial, IPJ, T5, Medial, DIPJ, T6, Medial, DIPJ,T7, SUB MTH (s), 1, B/L , SUB MTH (s), 5, B/L ,Plantar, Heel(s), B/L ), were pared, and/or cut utilizing a sterile 15 blade, tissue nippers, and/or power dremel instrumentation by the physician of record - 50068, Q8 Progress Notes * Dioni CLOUDOB:[birth year] (83 yo F)Acc No.[id number]:06/11/2024 Progress Note Patient:?HOMERO Nubiavicenta Provider:?Jose Maria Thompson DPM :1940???Age:83 Y???Sex:Female D ate:06/11/2024 Address: [id number] Pcp:Tara Rodriguez MD Subjective: * Chief Complaints: * ???At Risk FootcarePainful N ail(s) aggravated by shoes and causing difficulty standing/walking. * HPI: ???At Risk footcare:?Pt States Last PCP Visit:?Date?04/20/2024 * ROS:?General/Constitutional:?Nausea?denies.?Vomiting?denies.?Hunger Thirst?denies.?Loss appetite?denies.?Chills?denies.?Fatigue?denies.?Fever?denies.?Night Sweats?denies.?Unexplained weight loss?denies.?Unexplained weight gain?denies.?HEENTM:?Dentures?denies.?Dizziness?denies.?Glasses/contacts?admits.?Retinopathy?de nies.?Blurred/double vision?denies.?TMJ?denies.?Discharge/drainage?denies.?Implants?denies.?Sore throat?denies.?Dental implants?denies.?Hard of hearing ?denies.?Difficulty chewing/swallowing/speaking?denies.?Nose bleeds?denies.?Sore mouth?denies.?Respiratory:?On Oxygen?denies.?Pneumonia/pleurisy?denies.?Bronchitis?denies.?Emphysema?denies.?C oughing?denies.?Cough blood?denies.?Shortness of breath?denies.?Wheezing?denies.?Cardiovascular:?Pacemaker?denies.?MVP?denies.?WPW?denies.?CHF?denies.?Heart attack?denies.?Septal defect?denies.?Rapid beat?denies.?Chest pain ?denies.?Atrial Fib.?denies.?Murmur/Palpitations?denies.?Gastrointestinal:?Hemorrhoids?denies.?Stomach/Abdominal pain?denies.?Dark blood stool?denies.?Irritable bowel ?denies.?Constipation?denies.?Diarrhea?denies.?Hematology:?Swelling?denies.?Clots?denies.?Varicose Veins?admits.?Bruising?denies.?Bleeding problem?denies.?Genitourinary:?Blood urine?denies.?Frequent/Painfu/urination/bladder control?denies.?Kidney stones?denies.?Infection (UTI)?denies.?Nephropathy?denies.?sex trans dis (STD)?denies.?Prostate?denies.?Musculoskeletal:?Hammertoes?admits.?Bunions?admits.?Back Pain?denies.?Muscle Cramps/ Resting?denies.?Muscle cramps / walking?denies.?Generalized aches and pains?admits.?Weakness?denies.?Integ.:?Fong?denies.?Scars?denies.?Corns/calluses?admits.?Ingrown nails?admits.?Painful nails?admits.?Open Sores?denies.?Rashes?denies.?Neurologic:?Difficulty sleeping?denies.?Brain disorder?denies.?Numbness?denies.?Balance trouble?denies.?Confusion?denies.?Fainting/blackouts?denies.?Tingling?denies.?Tr emors?denies.? * Medical History:? * Surgical History:?Fractures hip 02/2024 * Hospitalization/Major Diagno stic Procedure:?No Hospitalization History. * Family History:?Mother: dece ased.?Father: .?Spouse: alive.? * Social History:?Tobacco Use:?Tobacco use other than smoking?Are you an other tobacco user??No ?Tobacco Control (Standard)?Tobacco use:?Nonsmoker ?Additional Findings: Tobacco non-user?Current nonsmoker ???Drugs/Alcohol:?Drugs?Have you used drugs other than those for medical reasons in the past 12 months??No ?Alcohol Screen?Did you have a drink containing alcohol in the past year??No ?Points?0 ?Interpretation?Negative ???Miscellaneous:?Caffeine: no. ?Children: yes, 2. ?Marital status: . * Medications:?TakingCitalopra m Hydrobromide 30 MG Capsule 1 capsule Orally Once a day hydroCHLOROthiazide 25 MG Tablet 1 tablet in the morning Orally Once a day Omeprazole 20 MG Capsule Delayed Release 1 capsule 30 minutes before morning meal Orally Once a day Simvastatin 20 MG Tablet 1 tablet in the evening Orally Once a day Orthopedic Extra Depth Shoes With Custom Heat Molded Multidensity Innersoles 1 Pair shoes with 3 Pair custom heat molded innersoles Wear Daily Taking Citalopram Hydrobromide 30 MG Capsule 1 capsule Orally Once a day Taking hydroCHLOROthiazide 25 MG Tablet 1 tablet in the morning Orally Once a day Taking Omeprazole 20 MG Capsule Delayed Release 1 capsule 30 minutes before morning meal Orally Once a day Taking Simvastatin 20 MG Tablet 1 tablet in the evening Orally Once a day Taking Orthopedic Extra Depth Shoes With Custom Heat Molded Multidensity Innersoles 1 Pair shoes with 3 Pair custom heat molded innersoles Wear Daily Not-Taking/PRNhydroCHLOROthiazide 25 MG Tablet 1 tablet in the morning Orally Once a day Citalopram Hydrobromide 30 MG Capsule 1 capsule Orally Once a day Omeprazole 20 MG Capsule Delayed Release 1 capsule 30 minutes before morning meal Orally Once a day Simvastatin 20 MG Tablet 1 tablet in the evening Orally Once a day Medication List reviewed and reconciled with the patientNot-Taking/PRN hydroCHLOROthiazide 25 MG Tablet 1 tablet in the morning Orally Once a day Not-Taking/PRN Citalopram Hydrobromide 30 MG Capsule 1 capsule Orally Once a day Not-Taking/PRN Omeprazole 20 MG Capsule Delayed Release 1 capsule 30 minutes before morning meal Orally Once a day Not-Taking/PRN Simvastatin 20 MG Tablet 1 tablet in the evening Orally Once a day Medication List reviewed and reconciled with the patient * Allergies:?N.K.D.A.yes[Aller gies Verified] Objective: * Vitals:?Ht: 5 ft, Wt: 108, B GA: 21.09, Shoe size: 7, BP: 121/68 mm Hg, Wt-k.99 kg. * Examination: ???Vascular: ?DP PULSES (B):? 1/4, B/L.?PT PULSES (B):? 0/4, B/L.?CAPILLARY FILL TIME:? delayed, all digits, B/L.?TROPHIC CONDITION-TEXTURE/ELASTICITY/TURGOR/HAIR GROWTH (B):? decreased, with sparse to absent hair growth, B/L.?TEMPERTURE GRADIENT (C):? decreased, cool to cool, proximal to distal, B/L.?PIGMENTATION:? mottled, B/L.?EDEMA (C):?absent, B/L.?CLAUDICATION (C):?denies, B/L.?REST PAIN:?denies, B/L.?Nails: ?NAILS are:? Elongated, overgrown, dystrophic, lytic, greater than 3mm thick, discolored and friable with crumbly malodorous subungual debris, with pain on palpation,?TA, T1, T2, T3, T4, T5, T6, T7, T8, T9.?Dermatologic: ?SKIN FINDINGS:? Skin exam reveals Keratotic lesion(s) located at, Medial, IPJ, TA, Dorsal, PIPJ, T1, Medial, IPJ, T5, Medial, DIPJ, T6, Medial, DIPJ,T7, SUB MTH (s), 1, B/L , SUB MTH (s), 5, B/L ,Plantar, Heel(s), B/L .? Assessment: * Assessment: 1.?Tinea unguium - B35.1???2 .?Atherosclerosis of [place] artery of both lower extremities, with unspecified presence of clinical manifestation - I70.203 (Primary)???3.?Pain in right toe(s) - M79.674???4.?Pain in left toe(s) - M79.675??? Plan: * Treatment: 2.?Tinea unguium?Procedure: 87565-ANSPTRU NAIL, 6 OR MORE * Procedures:?Debride Nail 6-10:?Nail debridement?Due to the clinical pathology outlined in the exam findings, performance of this nail treatment is medically necessary as its management by an unskilled/untrained nonprofessional would put this patients foot and overall health at risk. Therefore, debridement to affected nail(s), as described in exam (?TA, T1, T2, T3, T4, T5, T6, T7, T8, T9?), was performed exclusively by the physician of record to reduce/remove overall nail length, girth, thickness, subungual debris, and necrotic tissue, by manual and/or electrical means through the use of a nail nipper and/or dremel-type tool grinder operator external, to a more viable healthy nail plate or bed tissue 6-10 nails in total. Silver nitrate was used for any petechial bleeding as necessary. Definitive antifungal treatment options, both pharmaceutical and surgical, have been reviewed and discussed with the patient. The patient solely prefers the use of intermittent/as needed professional debridement services for their nail condition and understands the need for additional periodic treatments to maintain effectiveness in symptomatic relief - 26317.?Keratoma Treatment:?Parring or Cutting of Benign Hyperkeratotic Lesion(s)?(-57) More than 4 Lesions - Due to the at risk nature of the patients medical condition as documented in the exam findings, performance of this keratoderma treatment is medically necessary as its management by an unskilled/untrained nonprofessional would put this patients foot and overall health at risk. Therefore, the benign hyperkeratotic lesions, ( 11 ) in total, locations as stated and described in the exam (??Medial,?IPJ,?TA,?Dorsal,?PIPJ,?T1,?Medial,?IPJ,?T5,?Medial,?DIPJ,?T6,?Medial, ?DIPJ,T7,?SUB MTH (s),?1,?B/L?,?SUB MTH (s),?5,?B/L?,Plantar,?Heel(s),?B/L?), were pared, and/or cut utilizing a sterile 15 blade, tissue nippers, and/or power dremel instrumentation by the physician of record - 60271, Q8.? * Procedure Codes:?60412 DEBRI DE NAIL, 6 OR MORE, Modifiers: XS 13518 TRIM SKIN LESIONS, OVER 4, Modifiers: XS , Q8 * Follow Up:?prn * Images: * Sign off status: Completed true * Provider:?Jose Maria Thompson DPM Date:?2024 Generated for Naa alexandre/Danielle/Quintin on:?06/29/2024 10:02 AM EST History and Physical Notes * HPI (History of Present Illness) Category Sub-Category Detail Notes Category Not es At Risk footcare Pt States Last PCP Visit: Date: Examination Category Sub-Category Detail Notes Category Not es Dermatologic SKIN FINDINGS: Skin exam reveal s Keratotic lesion(s) located at, Medial, IPJ, TA, Dorsal, PIPJ, T1, Medial, IPJ, T5, Medial, DIPJ, T6, Medial, DIPJ,T7, SUB MTH (s), 1, B/L , SUB MTH (s), 5, B/L ,Plantar, Heel(s), B/L Vascular DP PULSES (B): 1/4, B/L PT PULSES (B): 0/4, B/L CAPILLARY FILL TIME: delayed, all digits , B/L TEMPERTURE GRADIENT (C): decreased, cool to cool, proximal to distal, B/L TROPHIC CONDITION-TEXTURE/ELASTICITY/TURGOR/HAIR GROWTH (B): decreased, with sparse to absent hair gr owth, B/L EDEMA (C): absent, B/L CLAUDICATION (C): denies, B/L REST PAIN: denies, B/L PIGMENTATION: mottled, B/L Nails NAILS are: Elongated, overg rown, dystrophic, lytic, greater than 3mm thick, discolored and friable with crumbly malodorous subungual debris, with pain on palpation, TA, T1, T2, T3, T4, T5, T6, T7, T8, T9
--- OUTSIDE RECORDS SUMMARY | 2024-06-29 10:03 | XMS_ITS | Patient Health Record ---
Author Organization [facility] Address [address] [place] [address] Care Team Providers Care Car Wash Attendant Automatic Name Role Phone Michael NICHOLAS, Tara Primary Care Provider Unavail able Jose Maria Thompson Unavailable [phone] Allergies No Known Allergies Reason For Referral No Information Medications Medication SIG (Take, Route, Frequency, Duration) [...] Once a day for 30 day(s) Active Orthopedic Extra Depth Shoes With Custom Heat Molded Multidensity Innersoles 1 Pair shoes with 3 Pair custom heat molded innersoles Wear Daily for 365 days 06/30/2023 Active Simvastatin 20 MG 1 tablet in [...] Additional Findings: Tobacco non-user Current no nsmoker Problems Problem Type SNOMED Code ICD Code Onset Dates Problem Status W/U Status Risk Notes Problem Atherosclerosis of [place] arteries of the extremities ([id number]) Atherosclerosis of [place] artery of both lower extremities, with unspecified presence of clinical manifestation (I70.203) Active confirmed Vital Signs Blood pressure diastolic 68 mm Hg 06/11/2024 Height 5 ft in 06/11/2024 Blood pressure systolic 121 mm Hg 06/11/2024 Weight 108 lbs 06/11/2024 BMI 21.09 kg/m2 06/11/2024 Procedures Procedure Date Ordered Date Performed Result Body Sit e 37599-HZBIRZW NAIL, 6 OR MORE 06/30/2023 N/A 82322-JLQR SKIN LESIONS, OVER 4 06/30/2023 N/A 86020-WACTJNJ NAIL, 6 OR MORE 12/19/2023 N/A 23143-IMZG SKIN LESIONS, OVER 4 12/19/2023 N/A 11640-SBBZEDY NAIL, 6 OR MORE 03/15/2024 N/A 60364-GGCR SKIN LESIONS, OVER 4 03/15/2024 N/A 88602-EMNBOWA NAIL, 6 OR MORE 06/11/2024 N/A 37847-LGXD SKIN LESIONS, OVER 4 06/11/2024 N/A Encounters Encounter Location Date Provider Diagnosis [address] [address] 06/30/2023 Jose Maria Thompson Atherosclerosis of n ative artery of both lower extremities, with unspecified presence of clinical manifestation I70.203 ; Onychomycosis B35.1 ; Pain of toe of right foot M79.674 ; Pain of toe of left foot M79.675 ; Pain in right toe(s) M79.674 ; Other hammer toe(s) (acquired), right foot M20.41 ; Arthritis of joint of lesser toe, right M19.071 and Subluxation of metatarsophalangeal joint of toe, initial encounter S93.149A [facility] [address] 12/19/2023 Jose Maria Thompson Atherosclerosis of n ative artery of both lower extremities, with unspecified presence of clinical manifestation I70.203 ; Tinea unguium B35.1 ; Pain in right toe(s) M79.674 ; Pain in left toe(s) M79.675 ; Other hammer toe(s) (acquired), right foot M20.41 and Other hammer toe(s) (acquired), left foot M20.42 [facility] [address] 03/15/2024 Jose Maria Thompson Atherosclerosis of n ative artery of both lower extremities, with unspecified presence of clinical manifestation I70.203 ; Tinea unguium B35.1 ; Pain in right toe(s) M79.674 and Pain in left toe(s) M79.[address] [address] 06/11/2024 Jose Maria Thompson Atherosclerosis of n ative artery of both lower extremities, with unspecified presence of clinical manifestation I70.203 ; Tinea unguium B35.1 ; Pain in right toe(s) M79.674 and Pain in left toe(s) M79.675 [facility] [address] 09/07/2023 Jose Maria Thompson [facility] [address] [place] [address] 10/20/2023 Jose Maria Thompson Assessments Encounter Date Diagnosis (ICD Code) Assessment Notes Treatment Notes Treatment Clinical Notes Section Notes 06/30/2023 Atherosclerosis of [place] artery of both lower extremities, with unspecified presence of clinical manifestation (ICD-10 - I70.203) 12/19/2023 Tinea unguium (ICD-1 0 - B35.1) 12/19/2023 Atherosclerosis of [place] artery of both lower extremities, with unspecified presence of clinical manifestation (ICD-10 - I70.203) 03/15/2024 Tinea unguium (ICD-1 0 - B35.1) 03/15/2024 Atherosclerosis of [place] artery of both lower extremities, with unspecified presence of clinical manifestation (ICD-10 - I70.203) 06/11/2024 Tinea unguium (ICD-1 0 - B35.1) 06/11/2024 Atherosclerosis of [place] artery of both lower extremities, with unspecified presence of clinical manifestation (ICD-10 - I70.203) 06/11/2024 Pain in right toe(s) (ICD-10 - M79.674) 12/19/2023 Pain in right toe(s) (ICD-10 - M79.674) 03/15/2024 Pain in right toe(s) (ICD-10 - M79.674) 06/30/2023 Onychomycosis (ICD-1 0 - B35.1) 06/30/2023 Pain of toe of right foot (ICD-10 - M79.674) 03/15/2024 Pain in left toe(s) (ICD-10 - M79.675) 12/19/2023 Pain in left toe(s) (ICD-10 - M79.675) 06/11/2024 Pain in left toe(s) (ICD-10 - M79.675) 12/19/2023 Other hammer toe(s) (acquired), right foot (ICD-10 - M20.41) Response to treatment,Impr ovement 06/30/2023 Pain of toe of left foot (ICD-10 - M79.675) 06/30/2023 Pain in right toe(s) (ICD-10 - M79.674) 06/30/2023 Other hammer toe(s) (acquired), right foot (ICD-10 - M20.41) 12/19/2023 Other hammer toe(s) (acquired), left foot (ICD-10 - M20.42) Response to treatment,Impr ovement 06/30/2023 Arthritis of joint o f lesser toe, right (ICD-10 - M19.071) 06/30/2023 Subluxation of metatarsophalangeal joint of toe, initial encounter (ICD-10 - S93.149A) Plan Of Treatment Pending Test Test Name Order Date 77483-WGPACQT NAIL, 6 OR MORE 04/15/2022 89617-LVROQAK NAIL, 6 OR MORE 06/24/2022 55252-KCKMVCQ NAIL, 6 OR MORE 09/02/2022 28060-BLVKDCX NAIL, 6 OR MORE 11/11/2022 70599-IOLQHFH NAIL, 6 OR MORE 01/24/2023 78767-YGZTYBK NAIL, 6 OR MORE 06/30/2023 65269-AGGJOCR NAIL, 6 OR MORE 12/19/2023 80722-ADULBHV NAIL, 6 OR MORE 03/15/2024 68187-KSIFIIF NAIL, 6 OR MORE 06/11/2024 64252-VMTS SKIN LESIONS, OVER 4 06/11/19 25 14941-RPSS SKIN LESIONS, OVER 4 03/15/20 24 41879-QONP SKIN LESIONS, OVER 4 12/19/19 24 58792-UBVQ SKIN LESIONS, OVER 4 06/30/19 24 62503-TJDS SKIN LESIONS, OVER 4 01/25/20 23 02105-ZDZN SKIN LESIONS, OVER 4 11/12/19 23 07248-CCRM SKIN LESIONS, OVER 4 09/03/19 23 15697-GSPX SKIN LESIONS, OVER 4 06/24/19 23 26767-LMBF SKIN LESIONS, OVER 4 04/15/20 Next Appt Details Provider Name:Jose Maria Thompson , 09/06/2024 04:00:00 PM, [address] [facility], [facility] [[email or web address] [address], [place], [address], Insurance Providers Payer Name Payer Address Payer Phone Subscriber Number Group Number Insured Name Patient Relationship to Insured Coverage Start Date Coverage End Date [facility] 64 Medicare Preferred [address] [place] [address] [phone] [id number] Karyn Cloud Self - patient is the insured Medical (General) History Medical History History ICD Code Anxiety Arthritis CAD (Cholesterol) High blood pressure Reflux Right hip fracture/ORIF, Feb 2024 Surgical History Surgery Date(Month/Year) Fractures hip 02/2024
--- OUTSIDE RECORDS SUMMARY | 2024-06-29 10:03 | XMS_ITS ---
Author Organization [facility] Address [address] [facility] [place] [address] Care Team Providers Care Radio Tester Name Role Phone Michael NICHOLAS, Tara Primary Care Provider Unavail able Jose Maria Thompson Unavailable [phone] REASON FOR VISIT At Risk Footcare, Painful Nail(s) aggravated by shoes and causing difficulty standing/walking. Medications Medication SIG (Take, Route, Frequency, Duration) Notes Start Date End Date Status Orthopedic Extra Depth Shoes With Custom Heat Molded Multidensity Innersoles 1 Pair shoes with 3 Pair custom heat molded innersoles Wear Daily for 365 days 06/30/2023 Active Omeprazole 20 MG 1 capsule 30 minutes before morning meal Orally Once a day for 30 day(s) Not-Taking Simvastatin 20 MG 1 tablet in the evening Orally Once a day for 30 day(s) Not-Taking hydroCHLOROthiazide 25 MG 1 tablet in th [...] stop date) Never Smoker NA - NA Tobacco Use/Smoking Question Answer Notes Are you a: nonsmoker Additional Findings: Tobacco Non-User Current no n-smoker Alcohol Screen Question Answer Notes Did you have a drink containing alcohol in the p ast year? No Points 0 Interpretation Negative Tobacco use other than smoking: Question Answer Notes Are you an other tobacco user? No Vital Signs Height 5 ft in 03/15/2024 Weight 108 lbs 03/15/2024 BMI 21.09 kg/m2 03/15/2024 Procedures Procedure Date Ordered Date Performed Result Body Sit e 17040-FNUHBVL NAIL, 6 OR MORE 03/15/2024 N/A 28679-AZII SKIN LESIONS, OVER 4 03/15/2024 N/A Encounters Encounter Location Date Provider Diagnosis [facility] [place] [address] [place] [id number] 03/15/2024 Jose Maria Thopmson Atherosclerosis of knik artery of both lower extremities, with unspecified presence of clinical manifestation I70.203 ; Tinea unguium B35.1 ; Pain in right toe(s) M79.674 and Pain in left toe(s) M79.675 Assessments Encounter Date Diagnosis (ICD Code) Assessment Notes Treatment Notes Treatment Clinical Notes Section Notes 03/15/2024 Atherosclerosis of knik artery of both lower extremities, with unspecified presence of clinical manifestation (ICD-10 - I70.203) 03/15/2024 Tinea unguium (ICD-10 - B35.1) 03/15/2024 Pain in right toe(s) (ICD-10 - M79.674) 03/15/2024 Pain in left toe(s) (ICD-10 - M79.675) Plan Of Treatment Pending Test Test Name Order Date 51275-IEQKPJS NAIL, 6 OR MORE 03/15/2024 15951-IDRK SKIN LESIONS, OVER 4 03/15/20 24 Next Appt Details Follow Up: prn, Reason: Provider Name:Jose Maria Thompson , 09/06/2024 04:00:00 PM, [address] [facility], [address] [facility], [place], [address], Procedure Notes * Category Sub-Category Detail Notes Debride Nail 6-10 Nail debridement Performance o f this nail treatment by a nonprofessional would put this patients foot and overall health at risk. Therefore, debridement to affected nail(s) as described in exam was performed extensively to reduce/remove overall nail length, girth, thickness, subungual debris, and necrotic tissue, by manual and/or electrical means through the use of a nail nipper and/or dremel-type lens grinder apprentice, to a more viable healthy nail plate or bed tissue 6-10. Silver nitrate used for any petechial bleeding as necessary. Definitive antifungal treatment options have been reviewed and discussed with the patient. The patient chooses, no pharmaceutical tx - 16208 Keratoma Treatment Parring or Cutting o f Benign Hyperkeratotic Lesion(s) (-57) More than 4 Lesions - The Benign hyperkeratotic lesions, as described in exam, were pared, and/or cut utilizing a sterile 15 blade, tissue nippers, and/or dremel - 22565 , Q8 Progress Notes * Garret CLOUDeeDOB:[birth year] (83 yo F)Acc No.[id number]:03/15/2024 Progress Note Patient:?Karyn Cloud Provider:?Jose Maria Thompson DPM :1940???Age:83 Y???Sex:Female D ate:03/15/2024 Address:[address] [place] [address] [id number] Pcp:Tara Rodriguez MD Subjective: * Chief Complaints: * ???At Risk FootcarePainful N ail(s) aggravated by shoes and causing difficulty standing/walking. * HPI: ???At Risk footcare:?Pt States Last PCP Visit:?Date?10/19/2023 * ROS:?General/Constitutional:?Nausea?denies.?Vomiting?denies.?Hunger Thirst?denies.?Loss appetite?denies.?Chills?denies.?Fatigue?denies.?Fever?denies.?Night Sweats?denies.?Unexplained weight loss?denies.?Unexplained [...] ased.?Father: .?Spouse: alive.? * Social History:?Tobacco Use:?Tobacco Use/Smoking?Are you a:?nonsmoker ?Additional Findings: Tobacco Non-User?Current non-smoker ?Tobacco use other than smoking?Are you an other tobacco user??No ???Drugs/Alcohol:?Drugs?Have you used drugs other than those for medical reasons in the past 12 months??No ?Alcohol Screen?Did you have a drink containing alcohol in the past year??No ?Points?0 ?Interpretation?Negative ???Miscellaneous:?no Caffeine. ?Children: yes, 2. ?Marital status: . * Medications:?TakingCitalopra m Hydrobromide 30 MG Capsule 1 capsule Orally Once a dayhydroCHLOROthiazide 25 MG Tablet 1 tablet in the morning Orally Once a dayOmeprazole 20 MG Capsule Delayed Release 1 capsule 30 minutes before morning meal Orally Once a daySimvastatin 20 MG Tablet 1 tablet in the evening Orally Once a dayOrthopedic Extra Depth Shoes With Custom Heat Molded Multidensity Innersoles 1 Pair shoes with 3 Pair custom heat molded innersoles Wear DailyTaking Citalopram Hydrobromide 30 MG Capsule 1 capsule Orally Once a dayTaking hydroCHLOROthiazide 25 MG Tablet 1 tablet in the morning Orally Once a dayTaking Omeprazole 20 MG Capsule Delayed Release 1 capsule 30 minutes before morning meal Orally Once a dayTaking Simvastatin 20 MG Tablet 1 tablet in the evening Orally Once a dayTaking Orthopedic Extra Depth Shoes With Custom Heat Molded Multidensity Innersoles 1 Pair shoes with 3 Pair custom heat molded innersoles Wear DailyNot-Taking/PRNhydroCHLOROthiazide 25 MG Tablet 1 tablet in the morning Orally Once a dayCitalopram Hydrobromide 30 MG Capsule 1 capsule Orally Once a dayOmeprazole 20 MG Capsule Delayed Release 1 capsule 30 minutes before morning meal Orally Once a daySimvastatin 20 MG Tablet 1 tablet in the evening Orally Once a dayMedication List reviewed and reconciled with the patientNot-Taking/PRN hydroCHLOROthiazide 25 MG Tablet 1 tablet in the morning Orally Once a dayNot-Taking/PRN Citalopram Hydrobromide 30 MG Capsule 1 capsule Orally Once a dayNot-Taking/PRN Omeprazole 20 MG Capsule Delayed Release 1 capsule 30 minutes before morning meal Orally Once a dayNot-Taking/PRN Simvastatin 20 MG Tablet 1 tablet in the evening Orally Once a dayMedication List reviewed and reconciled with the patient * Allergies:?yes[Allergies Kuldip ified] Objective: * Vitals:?Ht: 5 ft, Wt:108, BM I: 21.09, Shoe size:7, Wt-k.99 kg. * Examination: ???Vascular: ?DP PULSES(B):? 1/4, B/L.?PT PULSES(B):? 0/4, B/L.?CAPILLARY FILL TIME:? delayed, all digits, B/L.?TROPHIC CONDITION-TEXTURE/ELASTICITY/TURGOR/HAIR GROWTH(B):? decreased, with sparse to absent hair growth, B/L.?TEMPERTURE GRADIENT(C):? decreased, cool to cool, proximal to distal, B/L.?PIGMENTATION:? mottled, B/L.?EDEMA(C):?absent, B/L.?CLAUDICATION(C):?denies, B/L.?REST PAIN:?denies, B/L.?Nails: ?NAILS are:? Elongated, overgrown, dystrophic, lytic, greater than 3mm thick, discolored and friable with crumbly malodorous subungual debris, with pain on palpation, 1-5 B/L.?Dermatologic: ?SKIN FINDINGS:? Skin exam reveals Keratotic lesion(s) located at, Medial, IPJ, TA, Dorsal, PIPJ, T1, Medial, IPJ, T5, Medial, DIPJ, T6, Medial, DIPJ,T7, SUB MTH (s), 1, B/L , SUB MTH (s), 5, B/L , Heel(s), B/L .? Assessment: * Assessment: 1.?Tinea unguium - B35.1?2.? Atherosclerosis of knik artery of both lower extremities, with unspecified presence of clinical manifestation - I70.203?3.?Pain in right toe(s) - M79.674?4.?Pain in left toe(s) - M79.675? Plan: * Treatment: 2.?Atherosclerosis of knik artery of both lower extremities, with unspecified presence of clinical manifestation?Procedure: 90847-QEOB SKIN LESIONS, OVER 4 * Procedures:?Debride Nail 6-10:?Nail debridement?Performance of this nail treatment by a nonprofessional would put this patients foot and overall health at risk. Therefore, debridement to affected nail(s) as described in exam was performed extensively to reduce/remove overall nail length, girth, thickness, subungual debris, and necrotic tissue, by manual and/or electrical means through the use of a nail nipper and/or dremel-type lens grinder apprentice, to a more viable healthy nail plate or bed tissue 6-10. Silver nitrate used for any petechial bleeding as necessary. Definitive antifungal treatment options have been reviewed and discussed with the patient. The patient chooses, no pharmaceutical tx - 15439.?Keratoma Treatment:?Parring or Cutting of Benign Hyperkeratotic Lesion(s)?(-57) More than 4 Lesions - The Benign hyperkeratotic lesions, as described in exam, were pared, and/or cut utilizing a sterile 15 blade, tissue nippers, and/or dremel - 41391 , Q8.? * Procedure Codes:?63427 DEBRI DE NAIL, 6 OR MORE, Modifiers: XS 28435 TRIM SKIN LESIONS, OVER 4, Modifiers: XS , Q8 * Follow Up:?prn * Images: * Sign off status: Completed true * Provider:?Jose Maria Thompson DPM Date:?2023 Generated for Naa alexandre/Danielle/eTransmitting on:?06/29/2024 10:02 AM EST History and Physical [...] B/L , SUB MTH (s), 5, B/L , Heel(s), B/L Vascular DP PULSES (B): 1/4, [...] malodorous subungual debris, with pain on palpation, 1-5 B/L
--- OUTSIDE RECORDS SUMMARY | 2024-06-29 10:03 | XMS_ITS ---
Author Organization [facility] Address [address] [facility] [place] [address] Care Team Providers Care Data Analysis Intern Name Role Phone Michael NICHOLAS, Tara Primary Care Provider Unavail able Jose Maria Thompson Unavailable [phone] Allergies No Known Allergies REASON FOR VISIT At Risk Footcare, Painful Nail(s) aggravated by shoes and causing difficulty standing/walking., ToeIrritation Medications Medication SIG (Take, Route, Frequency, Duration) [...] Once a day for 30 day(s) Active Omeprazole 20 MG 1 capsule 30 [...] Once a day for 30 day(s) Not-Taking Social History Tobacco Use: Social History Observation [...] No Vital Signs Height 5 ft in 12/19/2023 Weight 108 lbs 12/19/2023 BMI 21.09 kg/m2 12/19/2023 Procedures Procedure Date Ordered Date Performed Result Body Sit e 64277-NNGXXXF NAIL, 6 OR MORE 12/19/2023 N/A 75675-MWRL SKIN LESIONS, OVER 4 12/19/2023 N/A Encounters Encounter Location Date Provider Diagnosis [facility] [place] [address] [place] [phone] 12/19/2023 Jose Maria Thompson Atherosclerosis of coushatta artery of both lower extremities, with unspecified presence of clinical manifestation I70.203 ; Tinea unguium B35.1 ; Pain in right toe(s) M79.674 ; Pain in left toe(s) M79.675 ; Other hammer toe(s) (acquired), right foot M20.41 and Other hammer toe(s) (acquired), left foot M20.42 Assessments Encounter Date Diagnosis (ICD Code) Assessment Notes Treatment Notes Treatment Clinical Notes Section Notes 12/19/2023 Atherosclerosis of coushatta artery of both lower extremities, with unspecified presence of clinical manifestation (ICD-10 - I70.203) 12/19/2023 Tinea unguium (ICD-10 - B35.1) 12/19/2023 Pain in right toe(s) (ICD-10 - M79.674) 12/19/2023 Pain in left toe(s) (ICD-10 - M79.675) 12/19/2023 Other hammer toe(s) (acquired), right foot (ICD-10 - M20.41) Response to treatment,Impr ovement 12/19/2023 Other hammer toe(s) (acquired), left foot (ICD-10 - M20.42) Response to treatment,Impr ovement Plan Of Treatment Pending Test Test Name Order Date 37707-CSCYODU NAIL, 6 OR MORE 12/19/2023 96821-ZHIQ SKIN LESIONS, OVER 4 12/19/19 24 Next Appt Details Follow Up: prn, Reason: Provider Name:Jose Maria Thompson , 09/06/2024 04:00:00 PM, [address] [facility], [address], [place], [address], Procedure Notes * Category Sub-Category Detail Notes Debride Nail 6-10 Nail debridement Nail debridem ent performed extensively to reduce/remove overall nail length, girth, thickness, subungual debris, and necrotic tissue, by manual and electrical means through the use of a nail nipper and/or dremel, to more viable healthy nail plate or bed tissue 6-10. Silver nitrate used for any petechial bleeding as necessary. Patient chooses, no pharmaceutical tx (02838) Keratoma Treatment Parring or Cutting o f Benign Hyperkeratotic Lesion(s) 79365 ( More than 4 Lesions ) - The Benign hyperkeratotic lesions, as described above were pared, and/or cut utilizing a sterile 15 blade, tissue nippers, and/or dremel , Q8 Progress Notes * Dioni CLOUDOB:[birth year] (83 yo F)Acc No.[id number]:12/19/2023 Progress Note Patient:?SusanaKaryn martinez Provider:?Jose Maria Thompson DPM :1940???Age:83 Y???Sex:Female D ate:12/19/2023 Address:[address] [place], [place] [id number] Pcp:Tara Rodriguez MD Subjective: * Chief Complaints: * ???At Risk FootcarePainful N ail(s) aggravated by shoes and causing difficulty standing/walking.Toe Irritation * HPI: ???At Risk footcare:?Pt States Last PCP Visit:?Date?10/19/2023 ???Toe pain:?Treatments:?Rx shoes .? * ROS:?General/Constitutional:?Nausea?denies.?Vomiting?denies.?Hunger Thirst?denies.?Loss appetite?denies.?Chills?denies.?Fatigue?denies.?Fever?denies.?Night Sweats?denies.?Unexplained weight loss?denies.?Unexplained [...] trouble?denies.?Confusion?denies.?Fainting/blackouts?denies.?Tingling?denies.?Tr emors?denies.? * Medical History:? * Surgical History:?No Surgica l History documented. * Hospitalization/Major Diagno stic Procedure:?No Hospitalization History. [...] ?Children: yes, 2. ?Marital status: . * Medications:?TakingOrthopedi c Extra Depth Shoes With Custom Heat Molded Multidensity Innersoles 1 Pair shoes with 3 Pair custom heat molded innersoles Wear DailyOmeprazole 20 MG Capsule Delayed Release 1 capsule 30 minutes before morning meal Orally Once a daySimvastatin 20 MG Tablet 1 tablet in the evening Orally Once a dayCitalopram Hydrobromide 30 MG Capsule 1 capsule Orally Once a dayhydroCHLOROthiazide 25 MG Tablet 1 tablet in the morning Orally Once a dayTaking Orthopedic Extra Depth Shoes With Custom Heat Molded Multidensity Innersoles 1 Pair shoes with 3 Pair custom heat molded innersoles Wear DailyTaking Omeprazole 20 MG Capsule Delayed Release 1 capsule 30 minutes before morning meal Orally Once a dayTaking Simvastatin 20 MG Tablet 1 tablet in the evening Orally Once a dayTaking Citalopram Hydrobromide 30 MG Capsule 1 capsule Orally Once a dayTaking hydroCHLOROthiazide 25 MG Tablet 1 tablet in the morning Orally Once a dayNot-Taking/PRNhydroCHLOROthiazide 25 MG Tablet 1 tablet in the [...] gies Verified] Objective: * Vitals:?Ht: 5 ft, Wt:108, BM I: 21.09, Shoe size:7, Wt-k.99 kg. * Examination: ???Vascular: ?DP PULSES:? 05/12, B/L.?PT PULSES:? 0/4, B/L.?CAPILLARY FILL TIME:? delayed, all digits, B/L.?SKIN TEMPERTURE GRADIENT OF THE LOWER EXTERMITIES:? decreased, cool to cool, proximal to distal, B/L.?HAIR GROWTH/TEXTURE/ELASTICITY/TURGOR:? decreased, B/L.?PIGMENTATION:? mottled, B/L.?EDEMA:?absent, B/L.?CLAUDICATION:?denies, B/L.?REST PAIN:?denies, B/L.?Nails: ?NAILS are:? Elongated, overgrown, [...] MTH (s), 5, B/L , Heel(s), B/L .?Orthopedic: ?DIGITAL DEFORMITIES:?Digital contracture, PIPJ/DIPJ, T6, incompl- nonreducible with WB, or to push-up test, no over, nor underlapping , MPJ Contracture/Dorsal subluxation , 2nd , non-reducible with WB or to push-up test , Digital contracture, PIPJ, 2-5 B/L, incompl-nonreducable with WB, or to push-up test, MPJ Contracture/Dorsal subluxation, 2-5 B/L, incompl-reducable with WB or to push-up test, medial over lapping - T1, T6.?FOOTWEAR:?good condition, exhibit proper fit and accommodation for pedal deformities. OT were inspected and noted to be worn, but in good condition giving proper support at the present time.? Assessment: * Assessment: 1.?Tinea unguium - B35.1?2.? Atherosclerosis of coushatta artery of both lower extremities, with unspecified presence of clinical manifestation - I70.203?3.?Pain in right toe(s) - M79.674?4.?Pain in left toe(s) - M79.675?5.?Other hammer toe(s) (acquired), right foot - M20.41, Chronic problem, Stable (1=3,2=4), Response to treatment,Improvement?6.?Other hammer toe(s) (acquired), left foot - M20.42, Chronic problem, Stable (1=3,2=4), Response to treatment,Improvement? Plan: * Treatment: 2.?Atherosclerosis of coushatta artery of both lower extremities, with unspecified presence of clinical manifestation?Procedure: 69179-CKXJ SKIN LESIONS, OVER 4 * Procedures:?Debride Nail 6-10:?Nail debridement?Nail debridement performed extensively to reduce/remove overall nail length, girth, thickness, subungual debris, and necrotic tissue, by manual and electrical means through the use of a nail nipper and/or dremel, to more viable healthy nail plate or bed tissue 6-10. Silver nitrate used for any petechial bleeding as necessary. Patient chooses, no pharmaceutical tx (87789).?Keratoma Treatment:?Parring or Cutting of Benign Hyperkeratotic Lesion(s)?20879 ( More than 4 Lesions ) - The Benign hyperkeratotic lesions, as described above were pared, and/or cut utilizing a sterile 15 blade, tissue nippers, and/or dremel , Q8.? * Procedure Codes:?95646 DEBRI DE NAIL, 6 OR MORE, Modifiers: XS 07111 TRIM SKIN LESIONS, OVER 4, Modifiers: XS , Q8 * Preventive Medicine:? ??Counseling:?Discussion:?-13: Office or other outpatient visit for the evaluation and management of an established patient, which required a medically appropriate history and/or examination and LOW level of DECISION MAKING for: 1 STABLE ACUTE UNCOMPLICATED PROBLEM, 2 OR MORE MINOR PROBLEMS, OR 1 STABLE CHRONIC PROBLEM, THAT POSE(S) A LOW RISK FOR MORBIDITY/MORTALITY. The visit on the day of the encounter encompassed interpreting the data and educating the patient as to the nature of their condition, treatment options available according to their individual PMH, meds, allergies, and overall health/living conditions, as well as any potential risks or complications that may occur from a failure to adhere to, and participate in, the recommended course of therapy. The discussion included a complete verbal, and/or written explanation of the examination results, any x-rays taken, the proposed diagnosis, and outline of the treatment plan. A schedule for future care needs was also explained. The patient verbalized an understanding of the instructions at this time and agreed to be an active participant in their treatment. If the patient should think of any questions or concerns after the visit, I have encouraged the patient to call the office.?Shoe Gear Counseling:?A thorough inspection of the patients Rxed shoegear and inserts was performed and findings communicated. We reviewed the many important medical advantages for adhering to regularly wearing these shoe and insert accomidative devices daily as well as reviewed the fact that a failure in accepting these recommedations may be deleterious, unable to prevent, and disadvantagely result in, many pedal complications such as skin irritation, skin ulceration, infection, and even loss of toe/foot/leg/or even their life. Time was also spent reviewing the proper footcare techniques including daily skin moisturization, daily foot inspection for any interruption in skin integrity, open lesions, or sign of infection such as redness/malodor/drainage/swelling as well as daily shoe inspection for the presence of internal foreign bodies and shoe as well as insert wear. Patient questions re: shoes, inserts, and self foot inspections were answered to their satisfaction as the patient verbally confirmed a full understanding of the above information.? * Follow Up:?prn * Images: * Sign off status: Completed true * Provider:?Jose Maria Thompson DPM Date:?2023 Generated for Naa alexandre/Danielle/eTransmitting on:?06/29/2024 10:03 AM EST History and Physical Notes * HPI (History of Present Illness) Category Sub-Category Detail Notes Category Not es Toe pain Treatments: Rx shoes At Risk footcare Pt States Last PCP Visit: Date: 4 Examination Category Sub-Category Detail Notes Category Not es Dermatologic SKIN FINDINGS: Skin exam reveal s Keratotic lesion(s) located at, Medial, IPJ, TA, Dorsal, PIPJ, T1, Medial, IPJ, T5, Medial, DIPJ, T6, Medial, DIPJ,T7, SUB MTH (s), 1, B/L , SUB MTH (s), 5, B/L , Heel(s), B/L Orthopedic FOOTWEAR: good condition, exhibit proper fit and accommodation for pedal deformities. OT were inspected and noted to be worn, but in good condition giving proper support at the present time DIGITAL DEFORMITIES: Digital contracture , PIPJ/DIPJ, T6, incompl-nonreducible with WB, or to push-up test, no over, nor underlapping , MPJ Contracture/Dorsal subluxation , 2nd , non-reducible with WB or to push-up test , Digital contracture, PIPJ, 2-5 B/L, incompl-nonreducable with WB, or to push-up test, MPJ Contracture/Dorsal subluxation, 2-5 B/L, incompl-reducable with WB or to push-up test, medial over lapping - T1, T6 Vascular DP PULSES (B): 1/4, B/L PT PULSES (B): 0/4, B/L CAPILLARY FILL TIME: delayed, all digits , B/L TEMPERTURE GRADIENT (C): decreased, cool to cool, proximal to distal, B/L TROPHIC CONDITION-TEXTURE/ELASTICITY/TURGOR/HAIR GROWTH (B): decreased, B/L EDEMA (C): absent, B/L CLAUDICATION (C): denies, B/L REST PAIN: denies, B/L PIGMENTATION: mottled, B/L Nails NAILS are: Elongated, overg rown, dystrophic, lytic, greater than 3mm thick, discolored and friable with crumbly malodorous subungual debris, with pain on palpation, 1-5 B/L
== END 2024-06-29 10:25 | disposition home or self-care (01) ==
PROVIDERS: PCP Internal Medicine; Referring Provider Physical Medicine & Rehabilitation; Visit Provider Neurological Surgery
DX: M54.16 Radiculopathy, lumbar region (principal); M43.16 Spondylolisthesis, lumbar region
CPT/HCPCS: 99204

== ENCOUNTER 2024-06-29 09:31 | Outpatient (REF) | payer MEDICARE, SELFPAY ==
--- NOTE | ~2024-06-29 | XR_ITS ---
EXAMINATION: X-ray lumbar spine 4 views. CLINICAL INFORMATION: Spondylolisthesis, lumbar region. COMPARISON: July 09, 2009. TECHNIQUE: 4 views lumbar spine including flexion and extension. FINDINGS: There is a grade 1 anterolisthesis at L4-5. Neutral position which worsens during flexion and extension position. Multilevel marginal osteophyte formation and endplate sclerosis and decreased intervertebral disc height throughout the lumbar spine and the lower thoracic spine. Osteopenia versus osteoporosis. There is a S-shaped curvature of the thoracolumbar spine levoconvex at T12 and dextroconvex at L3. There is a hip prosthesis not fully evaluated on the right side. XR/XR lumbar spine 4V min IMPRESSION: Multilevel thoracolumbar spondylosis Grade 1 anterolisthesis L4-5 with likely instability. Electronically signed by: Cody Leon MD 06/29/2024 01:52 PM RAHEEM EARLY
== END 2024-06-29 09:32 | disposition home or self-care (01) ==
LOC: HO.HOSX 09:31
PROVIDERS: PCP Internal Medicine; Referring Provider Physical Medicine & Rehabilitation; Visit Provider Neurological Surgery
DX: M54.16 Radiculopathy, lumbar region (principal); M43.16 Spondylolisthesis, lumbar region
CPT/HCPCS: 72110; 99202

== ENCOUNTER → 2024-06-29 09:51 | Outpatient (BNV) | payer MEDICARE, SELFPAY | PROVIDERS: PCP Internal Medicine; Referring Provider Physical Medicine & Rehabilitation; Visit Provider Radiology Diagnostic Radiology | DX: M43.16 Spondylolisthesis, lumbar region (principal); M47.895 Other spondylosis, thoracolumbar region | CPT/HCPCS: 72110 ==

== ENCOUNTER 2024-07-25 06:57 | Day surgery (SDC) | payer MEDICARE, MEDICAID, SELFPAY ==
--- OUTSIDE RECORDS SUMMARY | 2024-07-11 08:24 | XMS_ITS ---
Author Organization [facility] Address [address] [facility] [place] [address] Care Team Providers Care Fish Farm Manager Name Role Phone Michael NICHOLAS, Tara Primary Care Provider Unavail able Jose Maria Thompson Unavailable [phone] Allergies No Known Allergies REASON FOR VISIT [...] Ordered Date Performed Result Body Sit e 07399-AYKZGEK NAIL, 6 OR MORE 12/19/2023 N/A 94892-MTID SKIN LESIONS, OVER 4 12/19/2023 N/A Encounters Encounter Location Date Provider Diagnosis [facility] [place] [address] [place] [address] 12/19/2023 Jose Maria Thompson Atherosclerosis of [place] artery of both lower extremities, with unspecified presence of clinical manifestation I70.203 ; Tinea unguium B35.1 ; Pain in right toe(s) M79.674 ; Pain in left toe(s) M79.675 ; Other hammer toe(s) (acquired), right foot M20.41 and Other hammer toe(s) (acquired), left foot M20.42 Assessments Encounter Date Diagnosis (ICD Code) Assessment Notes Treatment Notes Treatment Clinical Notes Section Notes 12/19/2023 Atherosclerosis of [place] artery of both lower extremities, with unspecified [...] Treatment Pending Test Test Name Order Date 76876-ICLCFMX NAIL, 6 OR MORE 12/19/2023 09605-ZHHE SKIN LESIONS, OVER 4 12/19/19 24 Next Appt Details Follow Up: prn, Reason: Provider Name:Jose Maria Thompson , 09/06/2024 04:00:00 PM, [address] [facility], [address], [place], [address], Procedure Notes * Category Sub-Category Detail Notes [...] as necessary. Patient chooses, no pharmaceutical tx (17670) Keratoma Treatment Parring or Cutting o f Benign Hyperkeratotic Lesion(s) 43530 ( More than 4 Lesions ) - The Benign hyperkeratotic lesions, as described above were pared, and/or cut utilizing a sterile 15 blade, tissue nippers, and/or dremel , Q8 Progress Notes * Dioni CLOUDOB:[birth year] (83 yo F)Acc No.[id number]:12/19/2023 Progress Note Patient:?SusanaKaryn martinez Provider:?Jose Maria Thompson DPM :1940???Age:83 Y???Sex:Female D ate:12/19/2023 Address:[address] [place], [place] [id number] Pcp:Tara Rodriguez MD Subjective: * Chief Complaints: [...] Assessment: 1.?Tinea unguium - B35.1?2.? Atherosclerosis of [place] artery of both lower extremities, with unspecified presence of clinical manifestation - I70.203?3.?Pain in right toe(s) - M79.674?4.?Pain in left toe(s) - M79.675?5.?Other hammer toe(s) (acquired), right foot - M20.41, Chronic problem, Stable (1=3,2=4), Response to treatment,Improvement?6.?Other hammer toe(s) (acquired), left foot - M20.42, Chronic problem, Stable (1=3,2=4), Response to treatment,Improvement? Plan: * Treatment: 2.?Atherosclerosis of nul[place] artery of both lower extremities, with unspecified presence of clinical manifestation?Procedure: 71808-WASG SKIN LESIONS, OVER 4 * Procedures:?Debride Nail 6-10:?Nail debridement?Nail debridement performed extensively to reduce/remove overall nail length, girth, thickness, subungual debris, and necrotic tissue, by manual and electrical means through the use of a nail nipper and/or dremel, to more viable healthy nail plate or bed tissue 6-10. Silver nitrate used for any petechial bleeding as necessary. Patient chooses, no pharmaceutical tx (29406).?Keratoma Treatment:?Parring or Cutting of Benign Hyperkeratotic Lesion(s)?83639 ( More than 4 Lesions ) - The Benign hyperkeratotic lesions, as described above were pared, and/or cut utilizing a sterile 15 blade, tissue nippers, and/or dremel , Q8.? * Procedure Codes:?84308 DEBRI DE NAIL, 6 OR MORE, Modifiers: XS 31036 TRIM SKIN LESIONS, OVER 4, Modifiers: XS [...] Thompson DPM Date:?2023 Generated for Naa alexandre/Danielle/eTransmitting on:?07/11/2024 08:24 AM EST History and Physical Notes * [...]
--- OUTSIDE RECORDS SUMMARY | 2024-07-11 08:24 | XMS_ITS ---
Author Organization [facility] [place] Address [address] [facility] [place] [address] Care Team Providers Care Software Qa System Specialist Name Role Phone Michael NICHOLAS, Tara Primary Care Provider Unavail able Jose Maria Thompson Unavailable [phone] REASON FOR VISIT At Risk Footcare, Painful [...] Ordered Date Performed Result Body Sit e 86786-VHAAYNI NAIL, 6 OR MORE 03/15/2024 N/A 23014-UPTN SKIN LESIONS, OVER 4 03/15/2024 N/A Encounters Encounter Location Date Provider Diagnosis [facility] [place] [address] [place] [address] 03/15/2024 Jose Maria Thompson Atherosclerosis of [place] artery of both lower extremities, with unspecified presence of clinical manifestation I70.203 ; Tinea unguium B35.1 ; Pain in right toe(s) M79.674 and Pain in left toe(s) M79.675 Assessments Encounter Date Diagnosis (ICD Code) Assessment Notes Treatment Notes Treatment Clinical Notes Section Notes 03/15/2024 Atherosclerosis of [place] artery of both lower extremities, with unspecified presence of clinical manifestation (ICD-10 - I70.203) 03/15/2024 Tinea unguium (ICD-10 - B35.1) 03/15/2024 Pain in right toe(s) (ICD-10 - M79.674) 03/15/2024 Pain in left toe(s) (ICD-10 - M79.675) Plan Of Treatment Pending Test Test Name Order Date 27944-BGRJICV NAIL, 6 OR MORE 03/15/2024 28639-BYQL SKIN LESIONS, OVER 4 03/15/20 24 Next Appt Details Follow Up: prn, Reason: Provider Name:Jose Maria Thompson , 09/06/2024 04:00:00 PM, [address] [facility], [address] [facility], [place], [address], Procedure Notes * Category Sub-Category Detail Notes [...] use of a nail nipper and/or dremel-type cutter grinder operator, to a more viable healthy nail plate or bed tissue 6-10. Silver nitrate used for any petechial bleeding as necessary. Definitive antifungal treatment options have been reviewed and discussed with the patient. The patient chooses, no pharmaceutical tx - 45396 Keratoma Treatment Parring or Cutting o f Benign Hyperkeratotic Lesion(s) (-57) More than 4 Lesions - The Benign hyperkeratotic lesions, as described in exam, were pared, and/or cut utilizing a sterile 15 blade, tissue nippers, and/or dremel - 44102 , Q8 Progress Notes * Garret CLOUDeeDOB:[birth year] (83 yo F)Acc No.[id number]:03/15/2024 Progress Note Patient:?Karyn Cloud Provider:?Jose Maria Thompson DPM :1940???Age:83 Y???Sex:Female D ate:03/15/2024 Address:[address] [place] [address] [id number] Pcp:Tara Rodriguez MD Subjective: * Chief Complaints: [...] Assessment: 1.?Tinea unguium - B35.1?2.? Atherosclerosis of [place] artery of both lower extremities, with unspecified presence of clinical manifestation - I70.203?3.?Pain in right toe(s) - M79.674?4.?Pain in left toe(s) - M79.675? Plan: * Treatment: 2.?Atherosclerosis of [place] artery of both lower extremities, with unspecified presence of clinical manifestation?Procedure: 68442-YVBQ SKIN LESIONS, OVER 4 * Procedures:?Debride Nail [...] use of a nail nipper and/or dremel-type cutter grinder operator, to a more viable healthy nail plate or bed tissue 6-10. Silver nitrate used for any petechial bleeding as necessary. Definitive antifungal treatment options have been reviewed and discussed with the patient. The patient chooses, no pharmaceutical tx - 36163.?Keratoma Treatment:?Parring or Cutting of Benign Hyperkeratotic Lesion(s)?(-57) More than 4 Lesions - The Benign hyperkeratotic lesions, as described in exam, were pared, and/or cut utilizing a sterile 15 blade, tissue nippers, and/or dremel - 49015 , Q8.? * Procedure Codes:?02707 DEBRI DE NAIL, 6 OR MORE, Modifiers: XS 41856 TRIM SKIN LESIONS, OVER 4, Modifiers: XS , Q8 * Follow Up:?prn * Images: * Sign off status: Completed true * Provider:?Jose Maria Thompson DPM Date:?2023 Generated for Naa alexandre/Danielle/Quintin on:?07/11/2024 08:23 AM EST History and Physical Notes * [...]
--- OUTSIDE RECORDS SUMMARY | 2024-07-11 08:24 | XMS_ITS ---
Author Organization [facility] [place] Address [address] [facility] [place] [address] Care Team Providers Care Healthcare Project Manager Name Role Phone Michael NICHOLAS, Tara Primary Care Provider Unavail able Jose Maria Thompson Unavailable [phone] Allergies No Known Allergies REASON FOR VISIT [...] Ordered Date Performed Result Body Sit e 50090-ADLKOYR NAIL, 6 OR MORE 06/11/2024 N/A 02385-NXRP SKIN LESIONS, OVER 4 06/11/2024 N/A Encounters Encounter Location Date Provider Diagnosis [facility] [place] [address] [facility] [address] [place] [address] 06/11/2024 Jose Maria Thompson Atherosclerosis of [place] artery of both lower extremities, with unspecified presence of clinical manifestation I70.203 ; Tinea unguium B35.1 ; Pain in right toe(s) M79.674 and Pain in left toe(s) M79.675 Assessments Encounter Date Diagnosis (ICD Code) Assessment Notes Treatment Notes Treatment Clinical Notes Section Notes 06/11/2024 Atherosclerosis of [place] artery of both lower extremities, with unspecified presence of clinical manifestation (ICD-10 - I70.203) 06/11/2024 Tinea unguium (ICD-10 - B35.1) 06/11/2024 Pain in right toe(s) (ICD-10 - M79.674) 06/11/2024 Pain in left toe(s) (ICD-10 - M79.675) Plan Of Treatment Pending Test Test Name Order Date 21228-QAFMKGS NAIL, 6 OR MORE 06/11/2024 59867-ADNV SKIN LESIONS, OVER 4 06/11/19 25 Next Appt Details Follow Up: prn, Reason: Provider Name:Jose Maria Thompson , 09/06/2024 04:00:00 PM, [address] [facility], [address], [place], [address], Procedure Notes * Category Sub-Category Detail Notes [...] use of a nail nipper and/or dremel-type jewel grinder, to a more viable healthy nail plate [...] to maintain effectiveness in symptomatic relief - 26331 Keratoma Treatment Parring or Cutting o f [...] instrumentation by the physician of record - 26242, Q8 Progress Notes * Dioni CLOUDOB:[birth year] (83 yo F)Acc No.[id number]:06/11/2024 Progress Note Patient:?HOMERO Nubiavicenta Provider:?Jose Maria Thompson DPM :1940???Age:83 Y???Sex:Female D ate:06/11/2024 Address: [place] Pcp:Tara Rodriguez MD Subjective: * Chief Complaints: [...] * Vitals:?Ht: 5 ft, Wt: 108, B KS: 21.09, Shoe size: 7, BP: 121/68 mm [...] Assessment: 1.?Tinea unguium - B35.1???2 .?Atherosclerosis of [place] artery of both lower extremities, with unspecified presence of clinical manifestation - I70.203 (Primary)???3.?Pain in right toe(s) - M79.674???4.?Pain in left toe(s) - M79.675??? Plan: * Treatment: 2.?Tinea unguium?Procedure: 65323-WCFZOQF NAIL, 6 OR MORE * Procedures:?Debride Nail [...] use of a nail nipper and/or dremel-type jewel grinder, to a more viable healthy nail plate [...] to maintain effectiveness in symptomatic relief - 30930.?Keratoma Treatment:?Parring or Cutting of Benign Hyperkeratotic Lesion(s)?(-57) [...] instrumentation by the physician of record - 94639, Q8.? * Procedure Codes:?01499 DEBRI DE NAIL, 6 OR MORE, Modifiers: XS 44752 TRIM SKIN LESIONS, OVER 4, Modifiers: XS , Q8 * Follow Up:?prn * Images: * Sign off status: Completed true * Provider:?Jose Maria Thompson DPM Date:?2024 Generated for Naa alexandre/Danielle/Quintin on:?07/11/2024 08:23 AM [...]
--- OUTSIDE RECORDS SUMMARY | 2024-07-11 08:24 | XMS_ITS | Patient Health Record ---
Author Organization [facility] Address [address] [place] [address] Care Team Providers Care Umbrella Supervisor Name Role Phone Michael NICHOLAS, Tara Primary Care Provider Unavail able Jose Maria Thompson Unavailable [phone] Allergies No Known Allergies Reason For Referral [...] W/U Status Risk Notes Problem Atherosclerosis of [place] arteries of the extremities ([id number]) Atherosclerosis of [place] artery of both lower extremities, with unspecified presence of clinical manifestation (I70.203) Active confirmed Vital Signs Blood pressure diastolic 68 mm Hg 06/11/2024 Height 5 ft in 06/11/2024 Blood pressure systolic 121 mm Hg 06/11/2024 Weight 108 lbs 06/11/2024 BMI 21.09 kg/m2 06/11/2024 Procedures Procedure Date Ordered Date Performed Result Body Sit e 66563-COMBGPB NAIL, 6 OR MORE 12/19/2023 N/A 52871-ASYR SKIN LESIONS, OVER 4 12/19/2023 N/A 50972-IWXRWHX NAIL, 6 OR MORE 03/15/2024 N/A 17907-OHEE SKIN LESIONS, OVER 4 03/15/2024 N/A 65938-DTXLDCA NAIL, 6 OR MORE 06/11/2024 N/A 46146-JWOJ SKIN LESIONS, OVER 4 06/11/2024 N/A Encounters Encounter Location Date Provider Diagnosis [address] [address] 12/19/2023 Jose Maria Thompson Atherosclerosis of [place] artery of both lower extremities, with unspecified presence of clinical manifestation I70.203 ; Tinea unguium B35.1 ; Pain in right toe(s) M79.674 ; Pain in left toe(s) M79.675 ; Other hammer toe(s) (acquired), right foot M20.41 and Other hammer toe(s) (acquired), left foot M20.[address] [address] 03/15/2024 Jose Maria Jay Atherosclerosis of [place] artery of both lower extremities, with unspecified presence of clinical manifestation I70.203 ; Tinea unguium B35.1 ; Pain in right toe(s) M79.674 and Pain in left toe(s) M79.[address] [address] 06/11/2024 Jose Maria Thompson Atherosclerosis of [place] artery of both lower extremities, with unspecified presence of clinical manifestation I70.203 ; Tinea unguium B35.1 ; Pain in right toe(s) M79.674 and Pain in left toe(s) M79.675 [facility] [address] [address] 09/07/2023 Jose Maria Thompson [facility] [address] [address] 10/20/2023 Jose Maria Thompson Assessments Encounter Date Diagnosis (ICD Code) Assessment Notes Treatment Notes Treatment Clinical Notes Section Notes 12/19/2023 Tinea unguium (ICD-10 - B35.1) 12/19/2023 Atherosclerosis of [place] artery of both lower extremities, with unspecified presence of clinical manifestation (ICD-10 - I70.203) 03/15/2024 Tinea unguium (ICD-10 - B35.1) 03/15/2024 Atherosclerosis of [place] artery of both lower extremities, with unspecified presence of clinical manifestation (ICD-10 - I70.203) 06/11/2024 Tinea unguium (ICD-10 - B35.1) 06/11/2024 Atherosclerosis of [place] artery of both lower extremities, with unspecified [...] Treatment Pending Test Test Name Order Date 18741-TGXMJYV NAIL, 6 OR MORE 04/15/2022 10084-DMHDHOZ NAIL, 6 OR MORE 06/24/2022 43870-ULGQUXK NAIL, 6 OR MORE 09/02/2022 92169-BWULUQW NAIL, 6 OR MORE 11/11/2022 82841-CYUQXNV NAIL, 6 OR MORE 01/24/2023 50499-TIHOAIL NAIL, 6 OR MORE 06/30/2023 04279-NALYWSY NAIL, 6 OR MORE 12/19/2023 63227-QPHLWSP NAIL, 6 OR MORE 03/15/2024 99043-MOOFUDT NAIL, 6 OR MORE 06/11/2024 20886-WXTE SKIN LESIONS, OVER 4 06/11/19 25 10962-QAZV SKIN LESIONS, OVER 4 03/15/20 24 02640-UDVW SKIN LESIONS, OVER 4 12/19/19 24 31673-NBUG SKIN LESIONS, OVER 4 06/30/19 24 70109-NCWN SKIN LESIONS, OVER 4 01/25/20 23 14591-LJOW SKIN LESIONS, OVER 4 11/12/19 23 02413-OXNR SKIN LESIONS, OVER 4 09/03/19 23 04763-MPCI SKIN LESIONS, OVER 4 06/24/19 23 60819-GSRQ SKIN LESIONS, OVER 4 04/15/20 22 Next Appt Details Provider Name:Jose Maria Thompson , 09/06/2024 04:00:00 PM, [address] [facility], [place] [address], [place], [address], Insurance Providers Payer Name Payer Address Payer Phone Subscriber Number Group Number Insured Name Patient Relationship to Insured Coverage Start Date Coverage End Date [facility] 65 Medicare Preferred [address] [place] [address] [id number] Karyn Cloud Self - patient is the insured Medical (General) History Medical History History ICD Code Anxiety Arthritis CAD (Cholesterol) High blood pressure Reflux Right hip fracture/ORIF, Feb 2024 Surgical History Surgery Date(Month/Year) Fractures hip 02/2024
[2024-07-13 11:46] VITALS: BMI 21.2
--- NOTE | 2024-07-13 12:33 | HO.ANESPROP2 ---
HPI - Anesthesia Eval Consult details Narrative: 84yo F for Right L4-5 Hemilaminotomy PMFSH Active Problems Active Problems: All Active Problems Lumbar back pain with radiculopathy affecting lower extremity (Acute) Spondylolisthesis, lumbar region (Acute) Physical exam (Acute) Memory loss (Acute) Lumbar radiculopathy (Acute) Microscopic hematuria (Acute) Hematuria (Acute) Murmur (Acute) Increased thirst (Acute) Opacity of lung on imaging study (Acute) Hospital discharge follow-up (Acute) Syncope (Acute) Arthritis of shoulder region, left (Acute) Bilateral hip joint arthritis (Acute) Right hip pain (Acute) Toe deformity, acquired (Acute) Encounter for Medicare annual wellness exam (Acute) Cough (Acute) Right leg pain (Acute) High cholesterol (Acute) Right leg pain (Acute) Generalized anxiety disorder (Acute) Pure hypercholesterolemia (Acute) Leukopenia (Acute) Mild recurrent major depression (Acute) Left shoulder pain (Acute) Osteoporosis (Acute) Dyslipidemia (Acute) Osteoarthritis of right knee (Acute) Hypertension (Acute) Past Medical History Medical History Depression Meningioma Generalized anxiety disorder Pure hypercholesterolemia Leukopenia Mild recurrent major depression Left shoulder pain Osteoporosis Dyslipidemia Osteoarthritis of right knee Hypertension Family History Family History Father Old age Mother Respiratory disease Brother Pancreatic cancer Sister No problems noted. Sister No problems noted. Daughter No problems noted. Daughter No problems noted. Surgical History Surgical History Hx of bilateral cataract extraction H/O colonoscopy History of right hip replacement History of hand surgery Social History Social History Household Members Other:: daughter Housing: Apartment Are you a primary lawn care technician to a significant other at home: No Do you presently have visiting nurse or other home services: Yes (home health aid 3 hours/week) Alcohol intake: current Alcohol intake frequency: does not drink Alcohol type: wine Patient Tobacco Use Status: Never used Tobacco Tobacco use type: Cigarette e-Cigarette/Vaping Use: Never Used Second Hand Smoke Exposure: No Advance Directives Date on File: 07/12/23 service: No Current occupational status: disabled Cognitive needs: No Hearing needs: No Vision needs: Yes Meds Allergies Allergy/AdvReac Type Severity Reaction Status Date / Time aspirin [Aspirin] AdvReac Mild bruising Verified 07/13/24 11:46 Home Medications ?Medication ?Instructions ?Recorded ?Confirmed ?Last Taken ?Type gabapentin 100 mg capsule 200 mg PO BID 10/19/23 07/13/24 Unknown History sertraline 100 mg tablet 100 mg PO QAM 07/13/24 07/13/24 07/25/24 History Exam Height,Weight and Vital Signs: Height 5 ft 1 in Weight 50.802 kg Pertinent Lab Results Pertinent Lab Results: CBC and BMP 01/2024 from [facility] Narrative Narrative: EKG 01/2024 NSR @ 71 ECHO 2023 Conclusions: - 1. Normal LV ejection fraction 60 65% with impaired relaxation filling pattern 2. Mild aortic regurgitation noted 3. Normal RV systolic pressure 4. No gross pericardial effusion Assessment and Plan Assessment Anesthesia Assessment: Chart Reviewed
[2024-07-25] VITALS (8 sets, daily range): BP systolic 129–162; BP diastolic 57–75; PULSE 71–93; RESP 16–18; TEMP 36.5–36.6; O2SAT 95–100
--- NOTE | ~2024-07-25 | FL_ITS ---
EXAMINATION: FL GUIDANCE ONLY HISTORY: l4-5 hemilaminotomy right COMPARISON: None available. TECHNIQUE: Fluoroscopy time: 3.9 seconds. Cumulative Dose: 1.4086 mGy. DAP: 0.5277 mGym2 Images: 2. FINDINGS: Fluoroscopic spot films of the lumbar spine in the lateral projection demonstrate probes directed toward the L4-5 intervertebral disc space from a posterior approach. FL/FL guidance in OR IMPRESSION: Fluoroscopy during procedure. Please see procedure report for additional information. Electronically signed by: Lázaro Hunter MD 07/25/2024 11:42 AM EDT
--- NOTE | 2024-07-25 07:19 | MHC.SHP ---
Pre-Procedural Eval Section A - 24 Hr Update-Section A only Date of Service: 07/25/24 Section B - Complete if H&P > 30 days Chief Complaint: Radiculopathy, lumbar region Allergies: Allergies Allergy/AdvReac Type Severity Reaction Status Date / Time aspirin [Aspirin] AdvReac Mild bruising Verified 07/13/24 11:46 Review of Systems Sugical H&P ROS: Negative: Constitution, Cardiovascular, Respiratory, Neurological, Psychiatric, Hem-Onc, Allergic/Immunologic, Gastrointestinal, Genitourinary, Musculoskeletal, Integumentary, Endocrine and Eyes/Ears/Nose/Throat Exam Surgical H&P Exam: Not Evaluated: HEENT, Not Evaluated: Heart, Not Evaluated: Lungs, Not Evaluated: Extremities, Not Evaluated: Abdomen, Not Evaluated: Skin and Not Evaluated: Neurological Exam Comment: The patient is awake, alert, no acute distress. Proposed surgical incision site is clean, dry, with no signs of recent trauma or surgery. Plan Diagnosis/Plan: Unchanged I have reviewed the history and physical and performed a pertinent physical examination on my patient. No changes have occurred unless specified. Plan remains the same, right-sided L4-5 lumbar decompression, laminotomy. Time Spent With Patient Time: Total time managing care of this patient today ___15_ minutes.
--- NOTE | 2024-07-25 08:17 | HO.ANESPROP2 ---
[facility] Active Problems Active Problems: All Active Problems Lumbar back pain with radiculopathy affecting lower extremity (Acute) Spondylolisthesis, lumbar region (Acute) Physical exam (Acute) Memory loss (Acute) Lumbar radiculopathy (Acute) Microscopic hematuria (Acute) Hematuria (Acute) Murmur (Acute) Increased thirst (Acute) Opacity of lung on imaging study (Acute) Hospital discharge follow-up (Acute) Syncope (Acute) Arthritis of shoulder region, left (Acute) Bilateral hip joint arthritis (Acute) Right hip pain (Acute) Toe deformity, acquired (Acute) Encounter for Medicare annual wellness exam (Acute) Cough (Acute) Right leg pain (Acute) High cholesterol (Acute) Right leg pain (Acute) Generalized anxiety disorder (Acute) Pure hypercholesterolemia (Acute) Leukopenia (Acute) Mild recurrent major depression (Acute) Left shoulder pain (Acute) Osteoporosis (Acute) Dyslipidemia (Acute) Osteoarthritis of right knee (Acute) Hypertension (Acute) Past Medical History Medical History Depression Meningioma Generalized anxiety disorder Pure hypercholesterolemia Leukopenia Mild recurrent major depression Left shoulder pain Osteoporosis Dyslipidemia Osteoarthritis of right knee Hypertension Family History Family History Father Old age Mother Respiratory disease Brother Pancreatic cancer Sister No problems noted. Sister No problems noted. Daughter No problems noted. Daughter No problems noted. Surgical History Surgical History Hx of bilateral cataract extraction H/O colonoscopy History of right hip replacement History of hand surgery History of Problems with Anesthesia: No Social History Social History Household Members Other:: daughter Housing: Apartment Are you a primary lpn care manager to a significant other at home: No Do you presently have visiting nurse or other home services: Yes (home health aid 3 hours/week) Alcohol intake: current Alcohol intake frequency: does not drink Alcohol type: wine Patient Tobacco Use Status: Never used Tobacco Tobacco use type: Cigarette e-Cigarette/Vaping Use: Never Used Second Hand Smoke Exposure: No Use of substances other than those prescribed or required for medical reasons: No Have you been hit, kicked, punched, or otherwise hurt by someone within the past year? If so, by whom?: No Spiritual Healthcare Practices: none Adventist Healthcare Practices: Christian Cultural Healthcare Practices: none Are you DNR?: No Advance Directives: Yes (HCP) Advance Directives Information Provided: Yes Advance Directives on File: Yes Advance Directives Date on File: 07/12/23 Recently lost weight without trying: No Eating poorly because of decreased appetite: No Nutrition Risks: Surgical patient >75years FDLMP: n/a Poor oral hygiene: No (upper full & lower partial denture) service: No Current occupational status: disabled Cognitive needs: No Hearing needs: No Vision needs: Yes Meds Allergies Allergy/AdvReac Type Severity Reaction Status Date / Time aspirin [Aspirin] AdvReac Mild bruising Verified 07/13/24 11:46 Active Medications: Current Medications Lactated Ringer's (Lr) 1,000 mls @ 100 mls/hr IVCONT .Q10H TANYA Home Medications ?Medication ?Instructions ?Recorded ?Confirmed ?Last Taken ?Type gabapentin 100 mg capsule 200 mg PO BID 10/19/23 07/13/24 Unknown History sertraline 100 mg tablet 100 mg PO QAM 07/13/24 07/13/24 07/25/24 History Exam Height,Weight and Vital Signs: Height 5 ft 1 in Weight 50.802 kg Airway Mallampati Class: II TM Dist: >3cm Neck ROM: Limited Denture: Upper Partial: Lower Loose/Missing/Broken Teeth: Yes, Upper and Lower Heart: RRR Lungs: CTA Assessment and Plan Assessment Anesthesia Assessment: Anesthesia Plan Discussed and Chart Reviewed Final Anesthetic Review History of Problems with Anesthesia: No NPO: Yes ASA Class: II Final Preanesthetic Review: Meds/Allgs Chart Reviewed, Consent Obtained/Reviewed and Anes Risks/Benef Reviewed Patient Risk: Low Procedure Risk: Intermediate Anesthetic Plan Anesthetic Plan: GA Disposition: Standard PACU
[2024-07-25] MEDS: Lactated Ringers 1,000 ML 100 ML IVCONT (08:36)
[2024-07-25] MEDS: Gabapentin 300 MG CAPSULE PO (08:37)
[2024-07-25] MEDS: methocarbamoL 750 MG TABLET PO (08:37)
--- NOTE | 2024-07-25 11:23 | W.PM.OPN ---
Operative Note Operative Note Date of Service: 07/25/24 Narrative: Preoperative Diagnosis: L4-5 spinal stenosis/lateral recess stenosis/neural foraminal stenosis Operation: Right L4-5 Laminotomy, Partial facetectomy and foraminotomy with use of microscope Consent Informed Consent was obtained for this operation. I have explained the nature, purpose and benefits of the operation. I have discussed the risks and benefit of the operation including possible complications or adverse events with patient/family. Alternative(s) were discussed with the patient with their relative benefits and risks as well as the consequences of not accepting the operation were included in obtaining consent. Surgeon: ROSEANNA SHEFFIELD MD, PHD Procedure Assisted By: Markos Vallejo Description of Procedure This patient is suffering from predominantly right lumbar radiculopathy due to L4-5 spinal stenosis and lateral recess stenosis caused by a grade 1-2 spondylolisthesis. The patient was offered a unilateral decompression. The procedure complications were explained. The patient was consented. The patient was brought to the operating room and endotracheally intubated. The patient was turned in prone position on the Aneesh frame. Prep and drape was done followed by timeout. The Physician occupational therapist's assistant provided access. A mid lumbar incision was made followed by release of the paravertebral muscle on the right side to expose the right L4-5 lamina and facet joints. An intraoperative x-ray was obtained to confirm the correct level. The microscope was brought in. I took over the procedure. The high-speed drill was used to do a L4-5 laminotomy until flavum ligament was reached. A #2 Kerrison was used to expand the laminotomy near flush to the pedicles and to include a partial facetectomy. The flavum ligament was opened and resected with a #3 Kerrison to decompress the underlying thecal sac. The flavum ligament was removed to decompress the lateral recess and the exiting L5 nerve root. A long nerve hook could be easily passed along the medial side of the pedicle as a sign of adequate decompression. The microscope was removed. Hemostasis was done. The physician occupational therapist's assistant close the Incision in 2 layers. Steri-Strips were used to approximate incision. An OpSite with Tegaderm was used to cover the incision. All sponge needle counts were correct. Patient was extubated and transported in stable is to recovery room. Anesthesia: General Estimated Blood Loss (ml): 35 Complications: None Duration of Surgery: Under 60 Minutes Postoperative Plan: Discharge to home
--- NOTE | 2024-07-25 11:36 | P.DS_ITS ---
DS: Providers Provider Date of Service: 07/25/24 Date of discharge: 07/25/24 Primary care physician: Tara Islas MD DS: Summary Time Attestation Discharge Coordination Time (in mins): 12 Quality: Safe Use of Opioids Does Pt have an Active Cancer Diagnosis on the Problem List?: No Quality: Stroke Does the patient have a stroke diagnosis?: No Physical Exam Vital Signs: Vital Signs: Last Vital Signs Temp 97.9 F 07/25/24 08:20 Pulse 71 07/25/24 08:20 Resp 16 07/25/24 08:20 BP 156/72 H 07/25/24 08:20 Pulse Ox 99 07/25/24 08:20 O2 Del Method Room Air 07/25/24 08:20 BMI result Body Mass Index 21.2 Discharge Plan Discharge Patient Disposition: Home, Self-Care Referrals: Tara Rowley MD [Primary Care Provider] - 1 Week Discharge Medications: New tramadol 50 mg tablet 50 mg PO Q6H PRN (Reason: pain) Qty: 30 0RF No Action acetaminophen [Tylenol Extra Strength] 500 mg tablet 1,000 mg PO QID PRN (Reason: fever or pain) Qty: 14 0RF simvastatin 20 mg tablet 20 mg PO BEDTIME Qty: 90 3RF (DME) Ultra-Light Rollator Misc See Rx Instructions .ROUTE .MEDSUPPLY Qty: 1 0RF Rx Instructions: As directed sertraline 100 mg tablet 100 mg PO QAM gabapentin 100 mg capsule 200 mg PO BID Discharge Orders: Discharge Order (Routine); Ordered 07/25/24 Ordered By: Markos Persaud Print Language: Serbian
== END 2024-07-25 14:16 | disposition home or self-care (01) ==
PROVIDERS: PCP Internal Medicine; Visit Provider Neurological Surgery
PROC: (CPT 63047; principal; 2024-07-25 09:50)
DX: M48.061 Spinal stenosis, lumbar region without neurogenic claudication (principal); M54.16 Radiculopathy, lumbar region; M43.16 Spondylolisthesis, lumbar region; M54.50 Low back pain, unspecified; M79.661 Pain in right lower leg; F03.90 Unspecified dementia, unspecified severity, without behavioral disturbance, psychotic disturbance, mood disturbance, and anxiety; E78.00 Pure hypercholesterolemia, unspecified; Z96.641 Presence of right artificial hip joint; Z79.899 Other long term (current) drug therapy; Z88.6 Allergy status to analgesic agent
CPT/HCPCS: 63047; J0131; J0690; J1100; J2003; J2371; J2405; J2704; J3010

== ENCOUNTER → 2024-07-25 06:57 | Outpatient (BNV) | payer MEDICARE, MEDICAID, SELFPAY | PROVIDERS: PCP Internal Medicine; Visit Provider Neurological Surgery | DX: M48.062 Spinal stenosis, lumbar region with neurogenic claudication (principal) | CPT/HCPCS: 63047; 99499 ==

== ENCOUNTER 2024-08-15 15:51 | Outpatient (AMB) | payer MEDICARE, MEDICAID, SELFPAY ==
--- NOTE | 2024-08-15 14:56 | A.SPINEOV_ITS ---
Intake Visit Reasons: 1st post op Intake Note: Ms. Cloud is here today for her 1st post op Commercial Illustrator Required: No Allergies aspirin [Aspirin] Adverse Reaction (Mild, Verified 08/15/24 15:40) bruising Assessment & Plan Assessment & Plan (1) Lumbar back pain with radiculopathy affecting lower extremity: Code(s): M54.16 - Radiculopathy, lumbar region Category: Medical Plan Operation: Right L4-5 Laminotomy, Partial facetectomy and foraminotomy Karyn comes in today for her 1st posoperative visit after having a lumbar decompression done by Dr. Bautista on 07/25/24. To recap she was initially evaluated in clinic for pain radiating from the back down to the outside of her thigh to the outside of her right lower leg. Today, she reports good resolution of her leg pain. She does state that she had a fall about a week after surgery secondary to a spontaneous seizure that she had according to her daughter who accompanied her to this visit today. They are unsure as to why the seizure occurred, and asked several questions about whether or not be surgery caused her to have a seizure. There is no evidence to suggest that lumbar spine decompression can cause any type of seizure activity in the brain. I relayed this information to them. No new neurological deficits. The patient ambulates well and rises from a seated position without difficulty. Her posterior incision site is closed and well healing with no signs of drainage. I would like the patient to follow up with us in 6 weeks for a 2nd postoperative visit. Markos Bautista MD,PhD [facility] Coding Level of Care Code Global (80172) Diagnoses Lumbar back pain with radiculopathy affecting lower extremity M54.16
== END 2024-08-15 15:51 | disposition home or self-care (01) ==
LOC: HO.HNS 15:51
PROVIDERS: PCP Internal Medicine; Visit Provider Physician Assistant
DX: M54.16 Radiculopathy, lumbar region (principal)
CPT/HCPCS: 99024

== ENCOUNTER → 2024-08-15 15:51 | Outpatient (BNVA) | payer MEDICARE, MEDICAID, SELFPAY | PROVIDERS: PCP Internal Medicine; Visit Provider Physician Assistant | DX: M54.16 Radiculopathy, lumbar region (principal) | CPT/HCPCS: 99212 ==

== ENCOUNTER → 2024-08-20 23:59 | Outpatient (BNV) | payer MEDICARE, MEDICAID, SELFPAY | PROVIDERS: PCP Internal Medicine; Visit Provider Internal Medicine | DX: I10 Essential (primary) hypertension (principal); R56.9 Unspecified convulsions; E78.5 Hyperlipidemia, unspecified; J98.11 Atelectasis | CPT/HCPCS: G0180 ==

== ENCOUNTER 2024-09-10 16:33 | Outpatient (AMB) | payer MEDICARE, SELFPAY ==
[2024-09-10 16:36] VITALS: BP 136/84; BMI 22.1
--- NOTE | 2024-09-10 16:36 | A.OFFPC_ITS ---
Vital Signs 09/10/24 16:36 Height 5 ft 1 in Weight 117 lb BMI 22.1 BP 136/84 Blood Pressure Location Lt brachial Position Sitting Intake Visit Reasons: depression Intake Note: Patient here for a follow up Depression Frame Gate Mortiser Operator Required: No Accompanied by: Daughter Allergies aspirin [Aspirin] Adverse Reaction (Mild, Verified 09/10/24 16:47) bruising Medication List - Last Reconciled 09/10/24 by Tara Islas MD acetaminophen (Tylenol Extra Strength) 1,000 mg (2 x 500 mg) PO QID PRN levetiracetam 500 mg PO BID sertraline 100 mg PO DAILY simvastatin 20 mg PO BEDTIME walker (Ultra-Light Rollator misc) As directed Tobacco use date assessed: 09/10/24 Fall risk assessment: 1 Fall in past year Last assessed Fall Risk: 09/10/24 Dental Screening Dental Screen Date: 09/10/24 Did you have a dental visit in the last 12 months?: No Did you have a dental problem in the last 6 months where you did not have access to dental care?: No Was dental information given to patient?: Patient has dentist HPI HPI Comments History of Present Illness Details The patient is an 84-year-old female presenting with a recent seizure episode. This incident has necessitated a neurologist follow-up. Additionally, cognitive challenges are present, marked by memory lapses and confusion mainly in short-term recall, alongside orientation issues towards locations and personal history. The cognitive changes are suspected to be linked to short-term memory disruption. Evaluation may involve blood work to check thyroid function and vitamin B12 levels. There is a consideration for bone health assessment due to the absence of prior osteodensitometry, highlighting concerns about osteoporosis that can elevate fracture and fall risks. On statins for dyslipidemia. Mild major depression has markedly improved with SSRIs. [facility] Medical History (Updated 09/10/24 @ 19:14 by Tara Islas MD) Depression Meningioma Generalized anxiety disorder Pure hypercholesterolemia Leukopenia Mild recurrent major depression Left shoulder pain Osteoporosis Dyslipidemia Osteoarthritis of right knee Hypertension Surgical History History of laminectomy Hx of bilateral cataract extraction H/O colonoscopy History of right hip replacement History of hand surgery Family History Father Old age Mother Respiratory disease Brother Pancreatic cancer Sister No problems noted. Sister No problems noted. Daughter No problems noted. Daughter No problems noted. Social History Household Members Other:: daughter Housing: Apartment Are you a primary resident care coordinator to a significant other at home: No Do you presently have visiting nurse or other home services: Yes (home health aid 3 hours/week) Alcohol intake: current Alcohol intake frequency: does not drink Alcohol type: wine Patient Tobacco Use Status: Never used Tobacco e-Cigarette/Vaping Use: Never Used Second Hand Smoke Exposure: No Advance Directives Date on File: 07/12/23 service: No Current occupational status: disabled Cognitive needs: No Hearing needs: No Vision needs: Yes Questionnaire PHQ-9 Over the last 2 weeks, how often have you been bothered by any of the following problems? 1. Little interest or pleasure in doing things: several days 2. Feeling down, depressed, or hopeless: several days 3. Trouble falling or staying asleep, or sleeping too much: not at all 4. Feeling tired or having little energy: not at all 5. Poor appetite or overeating: not at all 6. Feeling bad about yourself - or that you are a failure or have let yourself or your family down: not at all 7. Trouble concentrating on things, such as reading the newspaper or watching television: more than half the days 8. Moving or speaking so slowly that other people could have noticed. Or the opposite - being so fidgety or restless that you have been moving around a lot m ore than usual: several days 9. Thoughts that you would be better off or of hurting yourself in some way: not at all Total score: 5 Depression Screening Interpretation: Positive Depression Screening Follow-up: Existing condition, In treatment and Follow-up Visit Requested Depression Screening Done: Yes 11253 - PHQ-9 Billing: Yes Source: Developed by Drs. Lázaro Vinson, Keysha Yanez, Jj Starr and colleagues, with an educational buzz from [employer]. Thrive Questionnaire Date Thrive assessed: 09/10/24 I am a: Patient What is your living situation today?: I have a steady place to live Within the past 12 months, did the food you bought not last and you didn't have the money to get more?: Never true Within the past 12 months, did you worry whether your food would run out before you got money to buy more?: Never true Do you have trouble paying for medicines?: No Do you have trouble getting transportation to medical appointments?: I choose not to answer this question Do you have trouble paying your heating and electricity bill?: No Do you have trouble taking care of your child, family member or friend?: Yes Do you have trouble with day-to-day activities such as bathing, preparing meals, shopping, managing finances, etc.?: Yes Are you currently unemployed and looking for a job?: No Are you interested in more education?: No Please select the resources that you would like help with: None Currently or been in a relationship where the following occur: No concerns reported THRIVE Score: 0 AUDIT C Alcohol Use Questionnaire (AUDIT-C) 1. How often do you have a drink containing alcohol?: Never Total Score: 0 Score Reviewed/Action Taken: No MARK-7 AMB Questionnaire MARK-7 Date MARK - 7 assessed: 09/10/24 Feeling nervous, anxious, or on edge: 1 = Several days Not being able to stop or control worryin = Several days Worrying too much about different things: 1 = Several days Trouble relaxin = Not at all Being so restless that it is hard to sit still: 0 = Not at all Becoming easily annoyed or irritable: 2 = More than half the days Feeling afraid as if something awful might happen: 1 = Several days Total MARK-7 score (0-4 normal; 5-9 mild; 10-14 moderate; 15-21 severe): 6 Source: Developed by Drs. Lázaro Vinson, Keysha Yanez, Jj Starr and colleagues, with an educational buzz from [employer]. MARK-7 Assessment Billing MARK-7 Assessment Tool: MARK-7 Assessment 81643 Review of Systems Const All systems reviewed & are unremarkable except as noted in HPI and below Card Denies chest pain at rest, Denies chest pain with activity, Denies edema, Denies irregular heart rhythm, Denies claudication, Denies dyspnea, Denies dyspnea on exertion, Denies orthopnea, Denies paroxysmal nocturnal dyspnea and Denies slow heart rate Resp Denies cough, Denies dyspnea and Denies dyspnea on exertion Physical exam (Primary Care) Vital Signs: Last Vital Signs BP 136/84 09/10/24 16:36 BMI result Body Mass Index 22.1 Tobacco/Smoking Status: Tobacco use Status Tobacco use date assessed 09/10/24 09/10/24 16:44 Patient Tobacco Use Status Never used Tobacco 09/10/24 16:44 Tobacco use type 09/10/24 16:44 e-Cigarette/Vaping Use Never Used 09/10/24 16:44 PHQ-9: PHQ-9 Score PHQ-9: Total score 5 09/10/24 16:51 Depression Screening Interpretation: Positive Depression Screening Follow-up: Existing condition, In treatment and Follow-up Visit Requested Thrive Assessment: Date of Thrive Assessment Date Thrive assessed 09/10/24 09/10/24 16:44 Currently or been in a relationship where the following occur: No concerns reported Resp Effort & Inspection: normal respiratory effort Auscultation: clear to auscultation bilaterally Cardio Jugular venous distension: no JVD Rate: regular rate Rhythm: regular rhythm Heart sounds: S1 normal heart sound present and S2 normal heart sound present Extrem General: Yes full ROM Coding Level of Care Code Est Pt Level 4 (35532) Complex EM visit Add On G2211 Diagnoses Mild recurrent major depression F33.0 Dyslipidemia E78.5 Generalized anxiety disorder F41.1 Memory loss R41.3 Seizures R56.9 Additional Codes MARK-7 Assessment Billing - MARK-7 Assessment Tool: MARK-7 Assessment 19465 ([id number]) PHQ-9 - 17914 - PHQ-9 Billing: Yes ([id number]) Time Spent (min) 23 Assessment & Plan Assessment & Plan (1) Mild recurrent major depression: Code(s): F33.0 - Major depressive disorder, recurrent, mild Category: Medical (2) Dyslipidemia: Code(s): E78.5 - Hyperlipidemia, unspecified Category: Medical (3) Generalized anxiety disorder: Code(s): F41.1 - Generalized anxiety disorder Category: Medical (4) Memory loss: Code(s): R41.3 - Other amnesia Category: Medical (5) Seizures: Code(s): R56.9 - Unspecified convulsions Category: Medical Plan The patient will have a neurologist consult to review the seizure incident after starting sertraline. Blood tests will be conducted to assess thyroid function and vitamin levels due to cognitive concerns. An osteodensitometry is recomme nded to evaluate the risk of osteoporosis, with all tests coordinated for ease. Sertraline will continue to be monitored for any further impacts on memory and cognition, with future steps contingent on neurological findings. Patient was informed and verbally consented to the use of an ambient scribe for clinic note documentation during this visit. During our discussion, I explained to the patient and family that the neurologist would evaluate the recent seizure and assess the role of sertraline in this event. We discussed the importance of checking thyroid function and vitamin B12 levels in context to cognitive impairment, along with the rationale for osteoporosis screening via densitometry. We reviewed the potential benefits of these interventions in preventing complications such as falls or fractures. A concise plan allowing comprehensive review during one appointment was agreed upon, pending neurologist availability. The need for coordinated lab work alongside bone density assessment was emphasized, with clear instructions given on potential next steps based on results. Orders: Orders Vitamin B12 and Folate Today E53.8 - Deficiency of other specified B group vitamins, R41.3 - Other amnesia Comprehensive [place]. Panel Fast Today R41.3 - Other amnesia Complete Blood Count Auto Diff Today D64.9 - Anemia, unspecified, R41.3 - Other amnesia Vitamin D 25-OH Total Today E55.9 - Vitamin D deficiency, unspecified Lipid Panel Today E78.5 - Hyperlipidemia, unspecified Thyroid Stimulating Hormone Today R41.3 - Other amnesia XR DEXA axial skeleton Today Z78.0 - Asymptomatic menopausal state Patient Instructions: - Follow up with the neurologist as scheduled. - Await instructions for the blood work and bone density testing; ensure all tests are done on the same day if possible. - Continue taking your sertraline as prescribed. - Use the more stable walker for outdoor ambulation to prevent falls. - Monitor your memory changes and report any new symptoms to us. - Maintain your current vaccination status.
--- OUTSIDE RECORDS SUMMARY | 2024-09-10 17:44 | XMS_ITS ---
Author Organization [facility] ne[facility] [place] Address [address] [facility] [place] [address] Care Team Providers Care Process Tank Tender Name Role Phone Michael NICHOLAS, Tara Primary Care Provider Unavail able Jose Maria Thompson Unavailable [phone] Allergies No Known Allergies REASON FOR VISIT At Risk Footcare, Painful Nail(s) aggravated by shoes and causing difficulty standing/walking. Medications Medication SIG (Take, Route, Frequency, Duration) Notes Start Date End Date Status Omeprazole 20 MG 1 capsule 30 minutes [...] nsmoker Vital Signs Height 5 ft in 09/06/2024 Weight 108 lbs 09/06/2024 BMI 21.09 kg/m2 09/06/2024 Blood pressure systolic 119 mm Hg 09/07/19 25 Blood pressure diastolic 65 mm Hg 025 Procedures Procedure Date Ordered Date Performed Result Body Sit e 32077-RNSCQPD NAIL, 6 OR MORE 09/06/2024 N/A 86060-GNED SKIN LESIONS, OVER 4 09/06/2024 N/A Encounters Encounter Location Date Provider Diagnosis [facility] [place] [address] [facility] [address] [place] [address] 09/06/2024 Jose Maria Thompson Atherosclerosis of grand [place] artery of both lower extremities, with unspecified presence of clinical manifestation I70.203 ; Tinea unguium B35.1 ; Pain in right toe(s) M79.674 and Pain in left toe(s) M79.675 Assessments Encounter Date Diagnosis (ICD Code) Assessment Notes Treatment Notes Treatment Clinical Notes Section Notes 09/06/2024 Atherosclerosis of grand [place] artery of both lower extremities, with unspecified presence of clinical manifestation (ICD-10 - I70.203) 09/06/2024 Tinea unguium (ICD-10 - B35.1) 09/06/2024 Pain in right toe(s) (ICD-10 - M79.674) 09/06/2024 Pain in left toe(s) (ICD-10 - M79.675) Plan Of Treatment Pending Test Test Name Order Date 35698-LPIVVEW NAIL, 6 OR MORE 09/06/2024 19748-EUEA SKIN LESIONS, OVER 4 09/07/19 25 Next Appt Details Follow Up: prn, Reason: Provider Name:Jose Maria Thompson , 12/03/2024 04:00:00 PM, [address] [facility], [address], [place], [address], Procedure Notes * Category Sub-Category Detail Notes [...] of a nail nipper and/or dremel-type lens shaper grinder, to a more viable healthy nail [...] to maintain effectiveness in symptomatic relief - 94521 Keratoma Treatment Parring or Cutting o f [...] instrumentation by the physician of record - 55564, Q8 Progress Notes * Dioni CLOUDOB:[birth year] (84 yo F)Acc No.[id number]:09/06/2024 Progress Note Patient:?HOMERONubiavicenta Provider:?Jose Maria Thompson DPM :1940???Age:84 Y???Sex:Female D ate:09/06/2024 Address: [place] Pcp:Tara Rodriguez MD Subjective: * Chief Complaints: * ???At Risk FootcarePainful N ail(s) aggravated by shoes and causing difficulty standing/walking. * HPI: ???At Risk footcare:?Pt States Last PCP Visit:?Date?04/20/2024 ?Misc?States passed this past Jun.? * ROS:?General/Constitutional:?Nausea?denies.?Vomiting?denies.?Hunger Thirst?denies.?Loss appetite?denies.?Chills?denies.?Fatigue?denies.?Fever?denies.?Night Sweats?denies.?Unexplained weight loss?denies.?Unexplained weight gain?denies.?HEENTM:?Dentures?denies.?Dizziness?denies.?Glasses/contacts?admits.?Retinopathy?de nies.?Blurred/double vision?denies.?TMJ?denies.?Discharge/drainage?denies.?Implants?denies.?Sore throat?denies.?Dental implants?denies.?Hard of hearing ?denies.?Difficulty chewing/swallowing/speaking?denies.?Nose bleeds?denies.?Sore mouth?denies.?Respiratory:?On Oxygen?denies.?Pneumonia/pleurisy?denies.?Bronchitis?denies.?Emphysema?denies.?C oughing?denies.?Cough blood?denies.?Shortness of breath?denies.?Wheezing?denies.?Cardiovascular:?Pacemaker?denies.?MVP?denies.?WPW?denies.?CHF?denies.?Heart attack?denies.?Septal defect?denies.?Rapid beat?denies.?Chest pain ?denies.?Atrial Fib.?denies.?Murmur/Palpitations?denies.?Gastrointestinal:?Hemorrhoids?denies.?Stomach/Abdominal pain?denies.?Dark blood stool?denies.?Irritable bowel ?denies.?Constipation?denies.?Diarrhea?denies.?Hematology:?Swelling?denies.?Clots?denies.?Varicose Veins?admits.?Bruising?denies.?Bleeding problem?denies.?Genitourinary:?Blood urine?denies.?Frequent/Painfu/urination/bladder control?denies.?Kidney stones?denies.?Infection (UTI)?denies.?Nephropathy?denies.?sex trans dis (STD)?denies.?Prostate?denies.?Musculoskeletal:?Hammertoes?admits.?Bunions?admits.?Back Pain?denies.?Muscle Cramps/ Resting?denies.?Muscle cramps / walking?denies.?Generalized aches and pains?admits.?Weakness?admits, that is generalized.?Integ.:?Fong?denies.?Scars?denies.?Corns/calluses?admits.?Ingrown nails?admits.?Painful nails?admits.?Open Sores?denies.?Rashes?denies.?Neurologic:?Difficulty sleeping?denies.?Brain disorder?denies.?Numbness?denies.?Balance trouble?denies.?Confusion?denies.?Fainting/blackouts?denies.?Tingling?denies.?Tr emors?denies.? * Medical History:? * Surgical History:?Fractures hip 02/2024hip surgery 06/2024 * Hospitalization/Major Diagno stic Procedure:?No Hospitalization History. [...] * Vitals:?Ht: 5 ft, Wt: 108, B AR: 21.09, Shoe size: 7, BP: 119/65 mm Hg, Wt-k.99 kg. * Examination: ???Vascular: [...] Assessment: 1.?Tinea unguium - B35.1???2 .?Atherosclerosis of grand traverse artery of both lower extremities, with unspecified presence of clinical manifestation - I70.203 (Primary)???Specify :Q8???3.?Pain in right toe(s) - M79.674???4.?Pain in left toe(s) - M79.675??? Plan: * Treatment: 2.?Tinea unguium?Procedure: 96728-YBRFZXX NAIL, 6 OR MORE * Procedures:?Debride Nail [...] of a nail nipper and/or dremel-type lens shaper grinder, to a more viable healthy nail [...] to maintain effectiveness in symptomatic relief - 20681.?Keratoma Treatment:?Parring or Cutting of Benign Hyperkeratotic Lesion(s)?(-57) [...] instrumentation by the physician of record - 16997, Q8.? * Procedure Codes:?85121 DEBRI DE NAIL, 6 OR MORE, Modifiers: XS 80705 TRIM SKIN LESIONS, OVER 4, Modifiers: XS , Q8 * Follow Up:?prn * Images: * Sign off status: Completed true * Provider:?Jose Maria Thompson DPM Date:?2024 Generated for Naa alexandre/Danielle/Quintin on:?09/10/2024 05:44 PM EDT History and Physical Notes * HPI (History of Present Illness) Category Sub-Category Detail Notes Category Not es At Risk footcare Pt States Last PCP Visit: Date: 4 [facility] States passe d this past Jun Examination Category Sub-Category Detail Notes Category Not [...]
--- OUTSIDE RECORDS SUMMARY | 2024-09-10 17:44 | XMS_ITS ---
Author Organization [facility] ne[place] Address [address] [facility] [place] [address] Care Team Providers Care Cia Agent Name Role Phone Michael NICHOLAS, Tara Primary Care Provider Unavail able Jose Maria Thompson Unavailable [phone] Allergies No Known Allergies REASON FOR VISIT [...] Ordered Date Performed Result Body Sit e 81775-PMBMFDY NAIL, 6 OR MORE 06/11/2024 N/A 79519-MGRJ SKIN LESIONS, OVER 4 06/11/2024 N/A Encounters Encounter Location Date Provider Diagnosis [facility] [place] [address] [facility] [address] [place] [address] 06/11/2024 Jose Maria Thompson Atherosclerosis of [place] artery of both lower extremities, with unspecified presence of clinical manifestation I70.203 ; Tinea unguium B35.1 ; Pain in right toe(s) M79.674 and Pain in left toe(s) M79.675 Assessments Encounter Date Diagnosis (ICD Code) Assessment Notes Treatment Notes Treatment Clinical Notes Section Notes 06/11/2024 Atherosclerosis of [place] artery of both lower extremities, with unspecified presence of clinical manifestation (ICD-10 - I70.203) 06/11/2024 Tinea unguium (ICD-10 - B35.1) 06/11/2024 Pain in right toe(s) (ICD-10 - M79.674) 06/11/2024 Pain in left toe(s) (ICD-10 - M79.675) Plan Of Treatment Pending Test Test Name Order Date 53587-KBMGGAX NAIL, 6 OR MORE 06/11/2024 95337-CRDG SKIN LESIONS, OVER 4 06/11/19 25 Next Appt Details Follow Up: prn, Reason: Provider Name:Jose Maria Thompson , 12/03/2024 04:00:00 PM, [address] [facility], [address], [place], [address], Procedure Notes * Category Sub-Category Detail Notes [...] use of a nail nipper and/or dremel-type grinder operator external tool, to a more viable healthy nail plate [...] to maintain effectiveness in symptomatic relief - 45488 Keratoma Treatment Parring or Cutting o f [...] instrumentation by the physician of record - 89101, Q8 Progress Notes * Dioni CLOUDOB:[birth year] (83 yo F)Acc No.[id number]:06/11/2024 Progress Note Patient:?HOMERO Nubiavicenta Provider:?Jose Maria Thompson DPM :1940???Age:83 Y???Sex:Female D ate:06/11/2024 Address: [place] Pcp:Tara Rodriguez MD Subjective: * Chief Complaints: [...] Cramps/ Resting?denies.?Muscle cramps / walking?denies.?Generalized aches and pains?admits.?Weakness?denies.?Integ.:?Fogn?denies.?Scars?denies.?Corns/calluses?admits.?Ingrown nails?admits.?Painful nails?admits.?Open Sores?denies.?Rashes?denies.?Neurologic:?Difficulty sleeping?denies.?Brain disorder?denies.?Numbness?denies.?Balance trouble?denies.?Confusion?denies.?Fainting/blackouts?denies.?Tingling?denies.?Tr emors?denies.? [...] * Vitals:?Ht: 5 ft, Wt: 108, B RI: 21.09, Shoe size: 7, BP: 121/68 mm [...] Assessment: 1.?Tinea unguium - B35.1???2 .?Atherosclerosis of little traverse artery of both lower extremities, with unspecified presence of clinical manifestation - I70.203 (Primary)???3.?Pain in right toe(s) - M79.674???4.?Pain in left toe(s) - M79.675??? Plan: * Treatment: 2.?Tinea unguium?Procedure: 80980-JTVITMG NAIL, 6 OR MORE * Procedures:?Debride Nail [...] use of a nail nipper and/or dremel-type grinder operator external tool, to a more viable healthy nail plate [...] to maintain effectiveness in symptomatic relief - 37717.?Keratoma Treatment:?Parring or Cutting of Benign Hyperkeratotic Lesion(s)?(-57) [...] instrumentation by the physician of record - 34274, Q8.? * Procedure Codes:?33881 DEBRI DE NAIL, 6 OR MORE, Modifiers: XS 16129 TRIM SKIN LESIONS, OVER 4, Modifiers: XS [...]
--- OUTSIDE RECORDS SUMMARY | 2024-09-10 17:45 | XMS_ITS | Patient Health Record ---
Author Organization [facility] Address [address] [place] [address] Care Team Providers Care Compressed Air Pile Driver Operator Name Role Phone Michael NICHOLAS, Tara Primary Care Provider Unavail able Jose Maria Thompson Unavailable [phone] Allergies No Known Allergies Reason For Referral [...] W/U Status Risk Notes Problem Atherosclerosis of [place] arteries of the extremities ([id number]) Atherosclerosis of [place] artery of both lower extremities, with unspecified presence of clinical manifestation (I70.203) Active confirmed Vital Signs Blood pressure diastolic 65 mm Hg 09/06/2024 Height 5 ft in 09/06/2024 Blood pressure systolic 119 mm Hg 09/06/2024 Weight 108 lbs 09/06/2024 BMI 21.09 kg/m2 09/06/2024 Procedures Procedure Date Ordered Date Performed Result Body Sit e 55760-HAWCSXZ NAIL, 6 OR MORE 12/19/2023 N/A 04306-PGEI SKIN LESIONS, OVER 4 12/19/2023 N/A 46760-BBJXNWQ NAIL, 6 OR MORE 03/15/2024 N/A 14557-UMWB SKIN LESIONS, OVER 4 03/15/2024 N/A 72107-FGYHFDV NAIL, 6 OR MORE 06/11/2024 N/A 42778-OOBS SKIN LESIONS, OVER 4 06/11/2024 N/A 52432-MPSDYFA NAIL, 6 OR MORE 09/06/2024 N/A 26825-XEDV SKIN LESIONS, OVER 4 09/06/2024 N/A Encounters Encounter Location Date Provider Diagnosis [address] [address] 12/19/2023 Jose Maria Thompson Atherosclerosis of [place] artery of both lower extremities, with unspecified presence of clinical manifestation I70.203 ; Tinea unguium B35.1 ; Pain in right toe(s) M79.674 ; Pain in left toe(s) M79.675 ; Other hammer toe(s) (acquired), right foot M20.41 and Other hammer toe(s) (acquired), left foot M20.[address] [facility] [address] 03/15/2024 Jose Maria Thompson Atherosclerosis of [place] artery of both lower extremities, with unspecified presence of clinical manifestation I70.203 ; Tinea unguium B35.1 ; Pain in right toe(s) M79.674 and Pain in left toe(s) M79.675 [facility] [address] [place] [address] 06/11/2024 Jose Maria Thompson Atherosclerosis of [place] artery of both lower extremities, with unspecified presence of clinical manifestation I70.203 ; Tinea unguium B35.1 ; Pain in right toe(s) M79.674 and Pain in left toe(s) M79.[address] [address] 09/06/2024 Jose Maria Thompson Atherosclerosis of [place] artery of both lower extremities, with unspecified presence of clinical manifestation I70.203 ; Tinea unguium B35.1 ; Pain in right toe(s) M79.674 and Pain in left toe(s) M79.[address] [address] 10/20/2023 Jose Maria Thompson Assessments Encounter Date Diagnosis (ICD Code) Assessment Notes Treatment Notes Treatment Clinical Notes Section Notes 12/19/2023 Tinea unguium (ICD-10 - B35.1) 12/19/2023 Atherosclerosis of [place] artery of both lower extremities, with unspecified presence of clinical manifestation (ICD-10 - I70.203) 03/15/2024 Tinea unguium (ICD-10 - B35.1) 03/15/2024 Atherosclerosis of [place] artery of both lower extremities, with unspecified presence of clinical manifestation (ICD-10 - I70.203) 06/11/2024 Tinea unguium (ICD-10 - B35.1) 06/11/2024 Atherosclerosis of [place] artery of both lower extremities, with unspecified presence of clinical manifestation (ICD-10 - I70.203) 09/06/2024 Tinea unguium (ICD-10 - B35.1) 09/06/2024 Atherosclerosis of [place] artery of both lower extremities, with unspecified presence of clinical manifestation (ICD-10 - I70.203) 06/11/2024 Pain in right toe(s) (ICD-10 - M79.674) 09/06/2024 Pain in right toe(s) (ICD-10 - M79.674) 12/19/2023 Pain in right toe(s) (ICD-10 - M79.674) 03/15/2024 Pain in right toe(s) (ICD-10 - M79.674) 03/15/2024 Pain in left toe(s) (ICD-10 - M79.675) 12/19/2023 Pain in left toe(s) (ICD-10 - M79.675) 09/06/2024 Pain in left toe(s) (ICD-10 - M79.675) 06/11/2024 Pain in left toe(s) (ICD-10 - M79.675) 12/19/2023 Other hammer toe(s) (acquired), right foot (ICD-10 - M20.41) Response to treatment,Impr ovement 12/19/2023 Other hammer toe(s) (acquired), left foot (ICD-10 - M20.42) Response to treatment,Impr ovement Plan Of Treatment Pending Test Test Name Order Date 69139-OYZQYQG NAIL, 6 OR MORE 04/15/2022 18721-LKSTVRW NAIL, 6 OR MORE 06/24/2022 66093-KJKPAEP NAIL, 6 OR MORE 09/02/2022 40750-GEBQIPA NAIL, 6 OR MORE 11/11/2022 56852-ZLROBOV NAIL, 6 OR MORE 01/24/2023 59543-ETWQWAU NAIL, 6 OR MORE 06/30/2023 98153-MWDFKKQ NAIL, 6 OR MORE 12/19/2023 52589-HIBDXAK NAIL, 6 OR MORE 03/15/2024 87117-JECHNRW NAIL, 6 OR MORE 06/11/2024 01011-CDBKYEU NAIL, 6 OR MORE 09/06/2024 71161-TQSP SKIN LESIONS, OVER 4 09/07/19 25 50826-DLOZ SKIN LESIONS, OVER 4 06/11/19 25 82485-YFJB SKIN LESIONS, OVER 4 03/15/20 24 46273-FZMF SKIN LESIONS, OVER 4 12/19/19 24 07881-QQZN SKIN LESIONS, OVER 4 06/30/19 24 57331-QJUQ SKIN LESIONS, OVER 4 01/25/20 23 92453-YEUB SKIN LESIONS, OVER 4 11/12/19 23 27739-FCVG SKIN LESIONS, OVER 4 09/03/19 23 31584-FPQJ SKIN LESIONS, OVER 4 06/24/19 23 30978-SSSE SKIN LESIONS, OVER 4 04/15/20 Next Appt Details Provider Name:Jose Maria Thompson , 12/03/2024 04:00:00 PM, [address] [facility], [address], [place], [address], Insurance Providers Payer Name Payer Address Payer Phone Subscriber Number Group Number Insured Name Patient Relationship to Insured Coverage Start Date Coverage End Date [facility] 65 Medicare Preferred [address] [place] [address] [id number] Karyn Cloud Self - patient is the insured Medical (General) History Medical History History ICD Code Anxiety Arthritis CAD (Cholesterol) High blood pressure Reflux Right hip fracture/ORIF, Feb 2024 Surgical History Surgery Date(Month/Year) Fractures hip 02/2024 hip surgery 06/2024
--- OUTSIDE RECORDS SUMMARY | 2024-09-10 17:45 | XMS_ITS ---
Author Organization [facility] [place] Address [address] [facility] [place] [address] Care Team Providers Care Fleet Technician Name Role Phone Michael NICHOLAS, Tara Primary Care Provider Unavail able Jose Maria Thompson Unavailable [phone] REASON FOR VISIT At Risk Footcare, Painful [...] Ordered Date Performed Result Body Sit e 27316-JTVPTPI NAIL, 6 OR MORE 03/15/2024 N/A 91199-QVUD SKIN LESIONS, OVER 4 03/15/2024 N/A Encounters Encounter Location Date Provider Diagnosis [facility] [place] [address] [place] [address] 03/15/2024 Jose Maria Thompson Atherosclerosis of [place] artery of both lower extremities, with unspecified presence of clinical manifestation I70.203 ; Tinea unguium B35.1 ; Pain in right toe(s) M79.674 and Pain in left toe(s) M79.675 Assessments Encounter Date Diagnosis (ICD Code) Assessment Notes Treatment Notes Treatment Clinical Notes Section Notes 03/15/2024 Atherosclerosis of [place] artery of both lower extremities, with unspecified presence of clinical manifestation (ICD-10 - I70.203) 03/15/2024 Tinea unguium (ICD-10 - B35.1) 03/15/2024 Pain in right toe(s) (ICD-10 - M79.674) 03/15/2024 Pain in left toe(s) (ICD-10 - M79.675) Plan Of Treatment Pending Test Test Name Order Date 86025-NFZHIKL NAIL, 6 OR MORE 03/15/2024 79434-QWAI SKIN LESIONS, OVER 4 03/15/20 24 Next Appt Details Follow Up: prn, Reason: Provider Name:Jose Maria Thompson , 12/03/2024 04:00:00 PM, [address] [facility], [address] [facility], [place], [address], Procedure Notes * Category Sub-Category Detail Notes [...] use of a nail nipper and/or dremel-type ice grinder, to a more viable healthy nail plate or bed tissue 6-10. Silver nitrate used for any petechial bleeding as necessary. Definitive antifungal treatment options have been reviewed and discussed with the patient. The patient chooses, no pharmaceutical tx - 86451 Keratoma Treatment Parring or Cutting o f Benign Hyperkeratotic Lesion(s) (-57) More than 4 Lesions - The Benign hyperkeratotic lesions, as described in exam, were pared, and/or cut utilizing a sterile 15 blade, tissue nippers, and/or dremel - 34086 , Q8 Progress Notes * Garret CLOUDeeDOB:[birth year] (83 yo F)Acc No.[id number]:03/15/2024 Progress Note Patient:?Karyn Cloud Provider:?Jose Maria Thompson DPM :1940???Age:83 Y???Sex:Female D ate:03/15/2024 Address:[address] [place] [address] [facility] Pcp:Tara Rodriguez MD Subjective: * Chief Complaints: [...] Assessment: 1.?Tinea unguium - B35.1?2.? Atherosclerosis of [place] artery of both lower extremities, with unspecified presence of clinical manifestation - I70.203?3.?Pain in right toe(s) - M79.674?4.?Pain in left toe(s) - M79.675? Plan: * Treatment: 2.?Atherosclerosis of [place] artery of both lower extremities, with unspecified presence of clinical manifestation?Procedure: 15123-NQUV SKIN LESIONS, OVER 4 * Procedures:?Debride Nail [...] use of a nail nipper and/or dremel-type ice grinder, to a more viable healthy nail plate or bed tissue 6-10. Silver nitrate used for any petechial bleeding as necessary. Definitive antifungal treatment options have been reviewed and discussed with the patient. The patient chooses, no pharmaceutical tx - 63435.?Keratoma Treatment:?Parring or Cutting of Benign Hyperkeratotic Lesion(s)?(-57) More than 4 Lesions - The Benign hyperkeratotic lesions, as described in exam, were pared, and/or cut utilizing a sterile 15 blade, tissue nippers, and/or dremel - 18186 , Q8.? * Procedure Codes:?72130 DEBRI DE NAIL, 6 OR MORE, Modifiers: XS 51723 TRIM SKIN LESIONS, OVER 4, Modifiers: XS , Q8 * Follow Up:?prn * Images: * Sign off status: Completed true * Provider:?Jose Maria Thompson DPM Date:?2023 Generated for Naa alexandre/Danielle/eTransmari on:?09/10/2024 05:44 PM EDT History and Physical [...]
== END 2024-09-10 16:59 | disposition home or self-care (01) ==
LOC: HO.HMCH 16:33
PROVIDERS: PCP Internal Medicine; Visit Provider Internal Medicine
DX: E78.5 Hyperlipidemia, unspecified (principal); F33.0 Major depressive disorder, recurrent, mild; R56.9 Unspecified convulsions; F41.1 Generalized anxiety disorder; R41.3 Other amnesia

== ENCOUNTER → 2024-09-10 16:33 | Outpatient (BNVA) | payer MEDICARE, SELFPAY | PROVIDERS: PCP Internal Medicine; Visit Provider Internal Medicine | DX: F33.0 Major depressive disorder, recurrent, mild (principal); E78.5 Hyperlipidemia, unspecified; F41.1 Generalized anxiety disorder; R41.3 Other amnesia; R56.9 Unspecified convulsions | CPT/HCPCS: 96127; 99212 ==

== ENCOUNTER 2024-09-26 15:34 | Outpatient (AMB) | payer MEDICARE, MEDICAID, SELFPAY ==
--- NOTE | 2024-09-26 15:35 | HO.SPINEOV ---
Intake Visit Reasons: 2nd post op Intake Note: Ms. Cloud is here today for her 2nd post op. Tank Shop Supervisor Required: No Allergies aspirin [Aspirin] Adverse Reaction (Mild, Verified 09/10/24 16:47) bruising Assessment & Plan Assessment & Plan (1) Lumbar back pain with radiculopathy affecting lower extremity: Code(s): M54.16 - Radiculopathy, lumbar region Category: Medical Plan Operation: Right L4-5 Laminotomy, Partial facetectomy and foraminotomy Karyn comes in today for her 2nd posoperative visit after having a lumbar decompression done by Dr. Bautista on 07/25/24. She has been doing very well since we last saw her. She has not had any recurrence of her single isolated seizure activity. She reports that the pain she was experiencing prior to surgery has completely resolved. She is able to ambulate without the assistance of her walker, but does so slowly, and somewhat unsteadily. Her daughter accompanied her to this visit today and asked several questions regarding the postoperative healing course, all of which I answered to the best of my ability. They also asked several questions regarding initiating physical therapy. No new neurological deficits. The patient ambulates with her walker and rises from a seated position without difficulty. Her posterior incision site is closed and well healed. There is no need for continued routine follow up with this patient. I will place the order for physical therapy. Markos Bautista MD,PhD [facility] Orders: Orders PT Evaluation and Treatment Today M54.16 - Radiculopathy, lumbar region Coding Level of Care Code Global (00160) Diagnoses Lumbar back pain with radiculopathy affecting lower extremity M54.16
--- OUTSIDE RECORDS SUMMARY | 2024-09-26 15:37 | XMS_ITS | Patient Health Record ---
[facility] Organization [facility] Address [address] [place] [address] Care Team Providers Care Qa Test Lead Name Role Phone Michael NICHOLAS, Tara Primary Care Provider Unavail able Jose Maria Thompson Unavailable [phone] Allergies No Known Allergies Reason For Referral [...] W/U Status Risk Notes Problem Atherosclerosis of [place] arteries of the extremities ([id number]) Atherosclerosis of [place] artery of both lower extremities, with unspecified presence of clinical manifestation (I70.203) Active confirmed Vital Signs Blood pressure diastolic 65 mm Hg 09/06/2024 Height 5 ft in 09/06/2024 Blood pressure systolic 119 mm Hg 09/06/2024 Weight 108 lbs 09/06/2024 BMI 21.09 kg/m2 09/06/2024 Procedures Procedure Date Ordered Date Performed Result Body Sit e 52718-AUKACLD NAIL, 6 OR MORE 12/19/2023 N/A 19346-MPPQ SKIN LESIONS, OVER 4 12/19/2023 N/A 98105-CVYLODV NAIL, 6 OR MORE 03/15/2024 N/A 82526-GGKJ SKIN LESIONS, OVER 4 03/15/2024 N/A 73285-MZSMPRZ NAIL, 6 OR MORE 06/11/2024 N/A 32337-UEFE SKIN LESIONS, OVER 4 06/11/2024 N/A 90452-ONCBMCQ NAIL, 6 OR MORE 09/06/2024 N/A 84228-KVXG SKIN LESIONS, OVER 4 09/06/2024 N/A Encounters Encounter Location Date Provider Diagnosis [address] [address] 12/19/2023 Jose Maria Thompson Atherosclerosis of [place] artery of both lower extremities, with unspecified presence of clinical manifestation I70.203 ; Tinea unguium B35.1 ; Pain in right toe(s) M79.674 ; Pain in left toe(s) M79.675 ; Other hammer toe(s) (acquired), right foot M20.41 and Other hammer toe(s) (acquired), left foot M20.[address] [facility] [address] 03/15/2024 Jose Maria Thompson Atherosclerosis of [place] artery of both lower extremities, with unspecified presence of clinical manifestation I70.203 ; Tinea unguium B35.1 ; Pain in right toe(s) M79.674 and Pain in left toe(s) M79.675 [facility] [address] [place] [address] 06/11/2024 Jose Maria Thompson Atherosclerosis of [place] artery of both lower extremities, with unspecified presence of clinical manifestation I70.203 ; Tinea unguium B35.1 ; Pain in right toe(s) M79.674 and Pain in left toe(s) M79.[address] [address] 09/06/2024 Jose Maria Thompson Atherosclerosis of [place] artery of both lower extremities, with unspecified presence of clinical manifestation I70.203 ; Tinea unguium B35.1 ; Pain in right toe(s) M79.674 and Pain in left toe(s) M79.[address] [address] 10/20/2023 Jose Maria Thompson Assessments Encounter Date Diagnosis (ICD Code) Assessment Notes Treatment Notes Treatment Clinical Notes Section Notes 12/19/2023 Tinea unguium (ICD-10 - B35.1) 12/19/2023 Atherosclerosis of [place] artery of both lower extremities, with unspecified presence of clinical manifestation (ICD-10 - I70.203) 03/15/2024 Tinea unguium (ICD-10 - B35.1) 03/15/2024 Atherosclerosis of [place] artery of both lower extremities, with unspecified presence of clinical manifestation (ICD-10 - I70.203) 06/11/2024 Tinea unguium (ICD-10 - B35.1) 06/11/2024 Atherosclerosis of [place] artery of both lower extremities, with unspecified presence of clinical manifestation (ICD-10 - I70.203) 09/06/2024 Tinea unguium (ICD-10 - B35.1) 09/06/2024 Atherosclerosis of [place] artery of both lower extremities, with unspecified [...] Treatment Pending Test Test Name Order Date 63566-KYMZAEJ NAIL, 6 OR MORE 04/15/2022 17610-ZYVVPQR NAIL, 6 OR MORE 06/24/2022 95856-HDIRPQY NAIL, 6 OR MORE 09/02/2022 42381-KALSEFA NAIL, 6 OR MORE 11/11/2022 82125-BSWCWGM NAIL, 6 OR MORE 01/24/2023 19871-JPZBWQT NAIL, 6 OR MORE 06/30/2023 18732-YTYJSDO NAIL, 6 OR MORE 12/19/2023 71093-YHTNCYZ NAIL, 6 OR MORE 03/15/2024 90045-SJXYVZV NAIL, 6 OR MORE 06/11/2024 69893-ZQFGBWC NAIL, 6 OR MORE 09/06/2024 87602-ZZYJ SKIN LESIONS, OVER 4 09/07/19 25 85451-NARU SKIN LESIONS, OVER 4 06/11/19 25 34586-JFNT SKIN LESIONS, OVER 4 03/15/20 24 05607-XFYO SKIN LESIONS, OVER 4 12/19/19 24 45653-PMEF SKIN LESIONS, OVER 4 06/30/19 24 60725-MFJC SKIN LESIONS, OVER 4 01/25/20 23 64065-FAVL SKIN LESIONS, OVER 4 11/12/19 23 43486-AJSA SKIN LESIONS, OVER 4 09/03/19 23 02456-SQEK SKIN LESIONS, OVER 4 06/24/19 23 75799-HHZR SKIN LESIONS, OVER 4 04/15/20 Next Appt Details Provider Name:Jose Maria Thompson , 12/03/2024 04:00:00 PM, [address] [facility], [address], [place], [address], Insurance Providers Payer Name Payer Address Payer Phone Subscriber Number Group Number Insured Name Patient Relationship to Insured Coverage Start Date Coverage End Date [facility] 65 Medicare Preferred [address] [place] [address] [id number] Karyn Cloud Self - patient is the insured Medical (General) History Medical History History ICD Code Anxiety Arthritis CAD (Cholesterol) High blood pressure Reflux Right hip fracture/ORIF, Feb 2024 Surgical History Surgery Date(Month/Year) Fractures hip 02/2024 hip surgery 06/2024
--- OUTSIDE RECORDS SUMMARY | 2024-09-26 15:37 | XMS_ITS ---
Author Organization [facility] [place] Address [address] [facility] [place] [address] Care Team Providers Care Large Engine Assembler Name Role Phone Michael NICHOLAS, Tara Primary Care Provider Unavail able Jose Maria Thompsno Unavailable [phone] REASON FOR VISIT At Risk Footcare, Painful [...] Ordered Date Performed Result Body Sit e 00709-QTOHZZO NAIL, 6 OR MORE 03/15/2024 N/A 45740-DWWJ SKIN LESIONS, OVER 4 03/15/2024 N/A Encounters Encounter Location Date Provider Diagnosis [facility] [place] [address] [place] [address] 03/15/2024 Jose Maria Thompson Atherosclerosis of [place] artery of both lower extremities, with unspecified presence of clinical manifestation I70.203 ; Tinea unguium B35.1 ; Pain in right toe(s) M79.674 and Pain in left toe(s) M79.675 Assessments Encounter Date Diagnosis (ICD Code) Assessment Notes Treatment Notes Treatment Clinical Notes Section Notes 03/15/2024 Atherosclerosis of [place] artery of both lower extremities, with unspecified presence of clinical manifestation (ICD-10 - I70.203) 03/15/2024 Tinea unguium (ICD-10 - B35.1) 03/15/2024 Pain in right toe(s) (ICD-10 - M79.674) 03/15/2024 Pain in left toe(s) (ICD-10 - M79.675) Plan Of Treatment Pending Test Test Name Order Date 59304-SXIFIYG NAIL, 6 OR MORE 03/15/2024 97124-IYYD SKIN LESIONS, OVER 4 03/15/20 24 Next Appt Details Follow Up: prn, Reason: Provider Name:Jose Maria Thompson , 12/03/2024 04:00:00 PM, [address] [facility], [address] [facility], [place], [address], Procedure Notes * Category Sub-Category Detail Notes [...] use of a nail nipper and/or dremel-type meal grinder tender, to a more viable healthy nail plate or bed tissue 6-10. Silver nitrate used for any petechial bleeding as necessary. Definitive antifungal treatment options have been reviewed and discussed with the patient. The patient chooses, no pharmaceutical tx - 16282 Keratoma Treatment Parring or Cutting o f Benign Hyperkeratotic Lesion(s) (-57) More than 4 Lesions - The Benign hyperkeratotic lesions, as described in exam, were pared, and/or cut utilizing a sterile 15 blade, tissue nippers, and/or dremel - 10099 , Q8 Progress Notes * Garret CLOUDeeDOB:[birth year] (83 yo F)Acc No.[id number]:03/15/2024 Progress Note Patient:?Karyn Cloud Provider:?Jose Maria Thompson DPM :1940???Age:83 Y???Sex:Female D ate:03/15/2024 Address:[address] [place] [address] [id number] Pcp:Tara Rodriguez MD Subjective: * Chief Complaints: [...] Assessment: 1.?Tinea unguium - B35.1?2.? Atherosclerosis of [place] artery of both lower extremities, with unspecified presence of clinical manifestation - I70.203?3.?Pain in right toe(s) - M79.674?4.?Pain in left toe(s) - M79.675? Plan: * Treatment: 2.?Atherosclerosis of [place] artery of both lower extremities, with unspecified presence of clinical manifestation?Procedure: 66488-ZTFL SKIN LESIONS, OVER 4 * Procedures:?Debride Nail [...] use of a nail nipper and/or dremel-type meal grinder tender, to a more viable healthy nail plate or bed tissue 6-10. Silver nitrate used for any petechial bleeding as necessary. Definitive antifungal treatment options have been reviewed and discussed with the patient. The patient chooses, no pharmaceutical tx - 56140.?Keratoma Treatment:?Parring or Cutting of Benign Hyperkeratotic Lesion(s)?(-57) More than 4 Lesions - The Benign hyperkeratotic lesions, as described in exam, were pared, and/or cut utilizing a sterile 15 blade, tissue nippers, and/or dremel - 63611 , Q8.? * Procedure Codes:?04847 DEBRI DE NAIL, 6 OR MORE, Modifiers: XS 32402 TRIM SKIN LESIONS, OVER 4, Modifiers: XS , Q8 * Follow Up:?prn * Images: * Sign off status: Completed true * Provider:?Jose Maria Thompson DPM Date:?2023 Generated for Naa alexandre/Danielle/eTransmitting on:?09/26/2024 03:37 PM EDT History and Physical Notes * [...]
--- OUTSIDE RECORDS SUMMARY | 2024-09-26 15:37 | XMS_ITS ---
Author Organization [facility] [place] Address [address] [facility] [place] [address] Care Team Providers Care Derrick Helper Name Role Phone Michael NICHOLAS, Tara Primary Care Provider Unavail able Jose Maria Thompson Unavailable [phone] Allergies No Known Allergies REASON FOR VISIT [...] Ordered Date Performed Result Body Sit e 83745-RRADMJM NAIL, 6 OR MORE 09/06/2024 N/A 50103-TPNX SKIN LESIONS, OVER 4 09/06/2024 N/A Encounters Encounter Location Date Provider Diagnosis [facility] [place] [address] [facility] [address] [place] [address] 09/06/2024 Jose Maria Thompson Atherosclerosis of [place] artery of both lower extremities, with unspecified presence of clinical manifestation I70.203 ; Tinea unguium B35.1 ; Pain in right toe(s) M79.674 and Pain in left toe(s) M79.675 Assessments Encounter Date Diagnosis (ICD Code) Assessment Notes Treatment Notes Treatment Clinical Notes Section Notes 09/06/2024 Atherosclerosis of [place] artery of both lower extremities, with unspecified presence of clinical manifestation (ICD-10 - I70.203) 09/06/2024 Tinea unguium (ICD-10 - B35.1) 09/06/2024 Pain in right toe(s) (ICD-10 - M79.674) 09/06/2024 Pain in left toe(s) (ICD-10 - M79.675) Plan Of Treatment Pending Test Test Name Order Date 99839-VAMDCBC NAIL, 6 OR MORE 09/06/2024 40817-XABS SKIN LESIONS, OVER 4 09/07/19 25 Next Appt Details Follow Up: prn, Reason: Provider Name:Jose Maria Thompson , 12/03/2024 04:00:00 PM, [address] [facility], [address], [place], [address], Procedure Notes * Category Sub-Category Detail Notes [...] use of a nail nipper and/or dremel-type automatic grinder operator, to a more viable healthy [...] to maintain effectiveness in symptomatic relief - 87399 Keratoma Treatment Parring or Cutting o f [...] instrumentation by the physician of record - 38243, Q8 Progress Notes * Dioni CLOUDOB:[birth year] (84 yo F)Acc No.[id number]:09/06/2024 Progress Note Patient:?HOMERONubiavicenta Provider:?Jose Maria Thompson DPM :1940???Age:84 Y???Sex:Female D ate:09/06/2024 Address: [id number] Pcp:Tara Rodriguez MD Subjective: * Chief Complaints: [...] * Vitals:?Ht: 5 ft, Wt: 108, B WV: 21.09, Shoe size: 7, BP: 119/65 mm [...] Assessment: 1.?Tinea unguium - B35.1???2 .?Atherosclerosis of [place] artery of both lower extremities, with unspecified presence of clinical manifestation - I70.203 (Primary)???Specify :Q8???3.?Pain in right toe(s) - M79.674???4.?Pain in left toe(s) - M79.675??? Plan: * Treatment: 2.?Tinea unguium?Procedure: 63104-TKVMDVD NAIL, 6 OR MORE * Procedures:?Debride Nail [...] use of a nail nipper and/or dremel-type automatic grinder operator, to a more viable healthy [...] to maintain effectiveness in symptomatic relief - 22716.?Keratoma Treatment:?Parring or Cutting of Benign Hyperkeratotic Lesion(s)?(-57) [...] instrumentation by the physician of record - 37735, Q8.? * Procedure Codes:?02425 DEBRI DE NAIL, 6 OR MORE, Modifiers: XS 77730 TRIM SKIN LESIONS, OVER 4, Modifiers: XS , Q8 * Follow Up:?prn * Images: * Sign off status: Completed true * Provider:?Jose Maria Thompson DPM Date:?2024 Generated for Naa alexandre/Danielle/Quintin on:?09/26/2024 03:37 PM EDT History and Physical Notes * HPI (History of Present Illness) Category Sub-Category Detail Notes Category Not es At Risk footcare Pt States Last PCP Visit: Date: 4 [facility] [place] [place] this past Jun Examination [...]
--- OUTSIDE RECORDS SUMMARY | 2024-09-26 15:37 | XMS_ITS ---
Author Organization [facility] [place] Address [address] [facility] [place] [address] Care Team Providers Care Case Packer And Sealer Name Role Phone Michael NICHOLAS, Tara Primary Care Provider Unavail able Jose Maria Thompson Unavailable [phone] Allergies No Known Allergies REASON FOR VISIT [...] Ordered Date Performed Result Body Sit e 69174-DTATZYF NAIL, 6 OR MORE 06/11/2024 N/A 67961-SBNF SKIN LESIONS, OVER 4 06/11/2024 N/A Encounters Encounter Location Date Provider Diagnosis [facility] [place] [address] [facility] [address] [place] [address] 06/11/2024 Jose Maria Thompson Atherosclerosis of [place] artery of both lower extremities, with unspecified presence of clinical manifestation I70.203 ; Tinea unguium B35.1 ; Pain in right toe(s) M79.674 and Pain in left toe(s) M79.675 Assessments Encounter Date Diagnosis (ICD Code) Assessment Notes Treatment Notes Treatment Clinical Notes Section Notes 06/11/2024 Atherosclerosis of [place] artery of both lower extremities, with unspecified presence of clinical manifestation (ICD-10 - I70.203) 06/11/2024 Tinea unguium (ICD-10 - B35.1) 06/11/2024 Pain in right toe(s) (ICD-10 - M79.674) 06/11/2024 Pain in left toe(s) (ICD-10 - M79.675) Plan Of Treatment Pending Test Test Name Order Date 92264-WIYZTLS NAIL, 6 OR MORE 06/11/2024 29511-VSKG SKIN LESIONS, OVER 4 06/11/19 25 Next Appt Details Follow Up: prn, Reason: Provider Name:Jose Maria Thompson , 12/03/2024 04:00:00 PM, [address] [facility], [address], [place], [address], Procedure Notes * Category Sub-Category Detail Notes [...] to maintain effectiveness in symptomatic relief - 38839 Keratoma Treatment Parring or Cutting o f [...] instrumentation by the physician of record - 26113, Q8 Progress Notes * Dioni CLOUDOB:[birth year] (83 yo F)Acc No.[id number]:06/11/2024 Progress Note Patient:?HOMERO Nubiavicenta Provider:?Jsoe Maria Thompson DPM :1940???Age:83 Y???Sex:Female D ate:06/11/2024 Address: [id number] Pcp:Tara Rodriguez MD Subjective: * Chief Complaints: [...] * Vitals:?Ht: 5 ft, Wt: 108, B FL: 21.09, Shoe size: 7, BP: 121/68 mm [...] Assessment: 1.?Tinea unguium - B35.1???2 .?Atherosclerosis of [place] artery of both lower extremities, with unspecified presence of clinical manifestation - I70.203 (Primary)???3.?Pain in right toe(s) - M79.674???4.?Pain in left toe(s) - M79.675??? Plan: * Treatment: 2.?Tinea unguium?Procedure: 97635-YKBVGBN NAIL, 6 OR MORE * Procedures:?Debride Nail [...] to maintain effectiveness in symptomatic relief - 20307.?Keratoma Treatment:?Parring or Cutting of Benign Hyperkeratotic Lesion(s)?(-57) [...] instrumentation by the physician of record - 85357, Q8.? * Procedure Codes:?31191 DEBRI DE NAIL, 6 OR MORE, Modifiers: XS 60763 TRIM SKIN LESIONS, OVER 4, Modifiers: XS , Q8 * Follow Up:?prn * Images: * Sign off status: Completed true * Provider:?Jose Maria Thompson DPM Date:?2024 Generated for Naa alexandre/Danielle/Quintin on:?09/26/2024 03:36 PM EDT History and Physical Notes * [...]
== END 2024-09-26 15:53 | disposition home or self-care (01) ==
LOC: HO.HNS 15:34
PROVIDERS: PCP Internal Medicine; Visit Provider Physician Assistant
DX: M54.16 Radiculopathy, lumbar region (principal)
CPT/HCPCS: 99024

== ENCOUNTER → 2024-09-26 15:34 | Outpatient (BNVA) | payer MEDICARE, MEDICAID, SELFPAY | PROVIDERS: PCP Internal Medicine; Visit Provider Physician Assistant | DX: Z48.89 Encounter for other specified surgical aftercare (principal); M54.16 Radiculopathy, lumbar region; Z98.890 Other specified postprocedural states | CPT/HCPCS: 99212 ==

== ENCOUNTER 2024-10-25 08:49 | Outpatient (REF) | payer MEDICARE, MEDICAID, SELFPAY ==
--- NOTE | ~2024-10-25 | MM_ITS ---
EXAMINATION: DXA BONE DENSITY AXIAL HISTORY: Z78.0 - Asymptomatic menopausal state TECHNIQUE: [employer] Dual energy absorptiometry (DEXA) of the lumbar spine, total left hip, and femoral neck was performed. COMPARISON: Comparison is made with the prior examination dated 12/08/2007. FINDINGS: The bone mineral density of the lumbar spine is 1.322, corresponding to a T-score of 1.2, and a Z-score of 3.3. This is indicative of normal bone mineral density. This represents a BMD change of 12.5% compared to the prior exam. This is statistically significant. The bone mineral density of the left total hip is 0.776, corresponding to a T-score of -1.8, and a Z-score of 0.6. This is indicative of osteopenia. This represents a BMD change of -16.0% compared to the prior exam. This is statistically significant. The bone mineral density of the left femoral neck is 0.676, corresponding to a T-score of -2.6, and a Z-score of -0.1. This is indicative of osteoporosis. This represents a BMD change of -10.6% compared to the prior exam. FRACTURE RISK: The FRAX index suggests a ten year probability of major osteoporotic fracture of 34.5%, and of hip fracture 23.5%. MM/XR DEXA axial skeleton IMPRESSION: Based on bone mineral density, and according to World Health Organization (WHO) criteria, the diagnosis is consistent with osteoporosis. All bone density values are in grams per centimeter squared (g/cm2). Statistically, 68% of repeat scans fall within 1 SD (+/- 0.010 g/cm2 for AP spine L1-L4) and 1 SD (+/- 0.012 g/cm2 for femur total) FRAX is a trademark of the [employer] for Metabolic Bone Disease, a World Health Organization (WHO) Collaborating Center. Electronically signed by: Lázaro Hunter MD 10/29/2024 07:15 AM EDT
--- OUTSIDE RECORDS SUMMARY | 2024-10-25 09:18 | XMS_ITS | Patient Health Record ---
Author [facility] Address [address] [place] [address] Care Team Providers Care Project Management Engineer Name Role Phone Michael NICHOLAS, Tara Primary Care Provider Unavail able Jose Maria Thompson Unavailable [phone] Allergies No Known Allergies Reason For Referral [...] W/U Status Risk Notes Problem Atherosclerosis of [place] arteries of the extremities ([id number]) Atherosclerosis of [place] artery of both lower extremities, with unspecified presence of clinical manifestation (I70.203) Active confirmed Vital Signs Blood pressure diastolic 65 mm Hg 09/06/2024 Height 5 ft in 09/06/2024 Blood pressure systolic 119 mm Hg 09/06/2024 Weight 108 lbs 09/06/2024 BMI 21.09 kg/m2 09/06/2024 Procedures Procedure Date Ordered Date Performed Result Body Sit e 91668-ATEVKIR NAIL, 6 OR MORE 12/19/2023 N/A 42177-BCGI SKIN LESIONS, OVER 4 12/19/2023 N/A 64881-OHJQBKT NAIL, 6 OR MORE 03/15/2024 N/A 15786-PZPC SKIN LESIONS, OVER 4 03/15/2024 N/A 35841-KPHDXGQ NAIL, 6 OR MORE 06/11/2024 N/A 55295-OGRR SKIN LESIONS, OVER 4 06/11/2024 N/A 68009-XXLPBKB NAIL, 6 OR MORE 09/06/2024 N/A 83773-LBKH SKIN LESIONS, OVER 4 09/06/2024 N/A Encounters Encounter Location Date Provider Diagnosis [address] [address] 12/19/2023 Jose Maria Thompson Atherosclerosis of [place] artery of both lower extremities, with unspecified presence of clinical manifestation I70.203 ; Tinea unguium B35.1 ; Pain in right toe(s) M79.674 ; Pain in left toe(s) M79.675 ; Other hammer toe(s) (acquired), right foot M20.41 and Other hammer toe(s) (acquired), left foot M20.[address] [facility] [address] 03/15/2024 Jose Maria Thompson Atherosclerosis of [place] artery of both lower extremities, with unspecified presence of clinical manifestation I70.203 ; Tinea unguium B35.1 ; Pain in right toe(s) M79.674 and Pain in left toe(s) M79.675 [facility] [address] [address] 06/11/2024 Jose Maria Wellerunier Atherosclerosis of [place] artery of both lower extremities, with unspecified presence of clinical manifestation I70.203 ; Tinea unguium B35.1 ; Pain in right toe(s) M79.674 and Pain in left toe(s) M79.675 [facility] [address] [place] [address] 09/06/2024 Jose Maria Thompson Atherosclerosis of [place] artery of both lower extremities, with unspecified presence of clinical manifestation I70.203 ; Tinea unguium B35.1 ; Pain in right toe(s) M79.674 and Pain in left toe(s) M79.675 Assessments Encounter Date Diagnosis (ICD Code) Assessment Notes Treatment Notes Treatment Clinical Notes Section Notes 12/19/2023 Tinea unguium (ICD-10 - B35.1) 12/19/2023 Atherosclerosis of [place] artery of both lower extremities, with unspecified presence of clinical manifestation (ICD-10 - I70.203) 03/15/2024 Tinea unguium (ICD-10 - B35.1) 03/15/2024 Atherosclerosis of [place] artery of both lower extremities, with unspecified presence of clinical manifestation (ICD-10 - I70.203) 06/11/2024 Tinea unguium (ICD-10 - B35.1) 06/11/2024 Atherosclerosis of [place] artery of both lower extremities, with unspecified presence of clinical manifestation (ICD-10 - I70.203) 09/06/2024 Tinea unguium (ICD-10 - B35.1) 09/06/2024 Atherosclerosis of [place] artery of both lower extremities, with unspecified [...] Treatment Pending Test Test Name Order Date 34693-PDLZWEJ NAIL, 6 OR MORE 04/15/2022 23233-QQPEPYK NAIL, 6 OR MORE 06/24/2022 26479-KJVNHGB NAIL, 6 OR MORE 09/02/2022 68361-XYYKOQE NAIL, 6 OR MORE 11/11/2022 25305-EXCRHOK NAIL, 6 OR MORE 01/24/2023 62058-HCWEQGH NAIL, 6 OR MORE 06/30/2023 84992-HRYJPRO NAIL, 6 OR MORE 12/19/2023 50059-YUAOUUR NAIL, 6 OR MORE 03/15/2024 99801-NTFLZSQ NAIL, 6 OR MORE 06/11/2024 89521-EFISQAO NAIL, 6 OR MORE 09/06/2024 05958-SIOJ SKIN LESIONS, OVER 4 09/07/19 25 84365-TDAX SKIN LESIONS, OVER 4 06/11/19 25 84178-UNPE SKIN LESIONS, OVER 4 03/15/20 24 36355-IIWS SKIN LESIONS, OVER 4 12/19/19 24 25223-IPBV SKIN LESIONS, OVER 4 06/30/19 24 49938-IGII SKIN LESIONS, OVER 4 01/25/20 23 15621-NJZP SKIN LESIONS, OVER 4 11/12/19 23 98820-JYWS SKIN LESIONS, OVER 4 09/03/19 23 95787-DBOG SKIN LESIONS, OVER 4 06/24/19 23 28147-OUXI SKIN LESIONS, OVER 4 04/15/20 22 Next Appt Details Provider Name:Jose Maria Thompson , 12/03/2024 04:00:00 PM, [address] [facility] [address], [place], [address], Insurance Providers Payer Name Payer Address Payer Phone Subscriber Number Group Number Insured Name Patient Relationship to Insured Coverage Start Date Coverage End Date [facility] 65 Medicare Preferred [address] [place] [address] [phone] [id number] Karyn Cloud Self - patient is the insured Medical (General) History Medical History History ICD Code Anxiety Arthritis CAD (Cholesterol) High blood pressure Reflux Right hip fracture/ORIF, Feb 2024 Surgical History Surgery Date(Month/Year) Fractures hip 02/2024 hip surgery 06/2024
== END 2024-10-25 08:50 | disposition home or self-care (01) ==
LOC: HO.MAMMO 08:49
PROVIDERS: PCP Internal Medicine; Visit Provider Internal Medicine
DX: Z13.820 Encounter for screening for osteoporosis (principal); Z78.0 Asymptomatic menopausal state
CPT/HCPCS: 77080

== ENCOUNTER → 2024-10-25 09:15 | Outpatient (BNV) | payer MEDICARE, MEDICAID, SELFPAY | PROVIDERS: PCP Internal Medicine; Visit Provider Radiology Diagnostic Radiology | DX: E28.39 Other primary ovarian failure (principal) | CPT/HCPCS: 77080 ==

== ENCOUNTER 2024-10-27 09:25 | Outpatient (REF) | payer MEDICARE, MEDICAID, SELFPAY ==
--- OUTSIDE RECORDS SUMMARY | 2024-10-27 09:28 | XMS_ITS | Patient Health Record ---
[facility] Organization [facility] Address [address] [place] [address] Care Team Providers Care Water Pump Operator Name Role Phone Michael NICHOLAS, Tara Primary Care Provider Unavail able Jose Maria Thompson Unavailable [phone] Allergies No Known Allergies Reason For Referral [...] W/U Status Risk Notes Problem Atherosclerosis of muscogee arteries of the extremities (551006561717313) Atherosclerosis of muscogee artery of both lower extremities, with unspecified presence of clinical manifestation (I70.203) Active confirmed Vital Signs Blood pressure diastolic 65 mm Hg 09/06/2024 Height 5 ft in 09/06/2024 Blood pressure systolic 119 mm Hg 09/06/2024 Weight 108 lbs 09/06/2024 BMI 21.09 kg/m2 09/06/2024 Procedures Procedure Date Ordered Date Performed Result Body Sit e 61373-UFBGAOP NAIL, 6 OR MORE 12/19/2023 N/A 55285-HYNV SKIN LESIONS, OVER 4 12/19/2023 N/A 26769-JMIXSPZ NAIL, 6 OR MORE 03/15/2024 N/A 35888-XYAV SKIN LESIONS, OVER 4 03/15/2024 N/A 90966-GATRYGU NAIL, 6 OR MORE 06/11/2024 N/A 75206-RBXJ SKIN LESIONS, OVER 4 06/11/2024 N/A 86320-IQCLQQF NAIL, 6 OR MORE 09/06/2024 N/A 75653-JYIA SKIN LESIONS, OVER 4 09/06/2024 N/A Encounters Encounter Location Date Provider Diagnosis [address] [address] 12/19/2023 Jose Maria Thompson Atherosclerosis of muscogee artery of both lower extremities, with unspecified presence of clinical manifestation I70.203 ; Tinea unguium B35.1 ; Pain in right toe(s) M79.674 ; Pain in left toe(s) M79.675 ; Other hammer toe(s) (acquired), right foot M20.41 and Other hammer toe(s) (acquired), left foot M20.[address] [facility] [address] 03/15/2024 Jose Maria Thompson Atherosclerosis of muscogee artery of both lower extremities, with unspecified presence of clinical manifestation I70.203 ; Tinea unguium B35.1 ; Pain in right toe(s) M79.674 and Pain in left toe(s) M79.675 [facility] [address] [address] 06/11/2024 Jose Maria Wellerunier Atherosclerosis of muscogee artery of both lower extremities, with unspecified presence of clinical manifestation I70.203 ; Tinea unguium B35.1 ; Pain in right toe(s) M79.674 and Pain in left toe(s) M79.675 [facility] [address] [place] [address] 09/06/2024 Jose Maria Thompson Atherosclerosis of muscogee artery of both lower extremities, with unspecified presence of clinical manifestation I70.203 ; Tinea unguium B35.1 ; Pain in right toe(s) M79.674 and Pain in left toe(s) M79.675 Assessments Encounter Date Diagnosis (ICD Code) Assessment Notes Treatment Notes Treatment Clinical Notes Section Notes 12/19/2023 Tinea unguium (ICD-10 - B35.1) 12/19/2023 Atherosclerosis of muscogee artery of both lower extremities, with unspecified presence of clinical manifestation (ICD-10 - I70.203) 03/15/2024 Tinea unguium (ICD-10 - B35.1) 03/15/2024 Atherosclerosis of muscogee artery of both lower extremities, with unspecified presence of clinical manifestation (ICD-10 - I70.203) 06/11/2024 Tinea unguium (ICD-10 - B35.1) 06/11/2024 Atherosclerosis of muscogee artery of both lower extremities, with unspecified presence of clinical manifestation (ICD-10 - I70.203) 09/06/2024 Tinea unguium (ICD-10 - B35.1) 09/06/2024 Atherosclerosis of muscogee artery of both lower extremities, with unspecified [...] Treatment Pending Test Test Name Order Date 72063-YEUZOCD NAIL, 6 OR MORE 04/15/2022 23516-VDRARGC NAIL, 6 OR MORE 06/24/2022 77052-XDBBNSS NAIL, 6 OR MORE 09/02/2022 53990-CJWIARU NAIL, 6 OR MORE 11/11/2022 71035-UHJXMYR NAIL, 6 OR MORE 01/24/2023 81156-WRKOFMV NAIL, 6 OR MORE 06/30/2023 33874-NBIXTGM NAIL, 6 OR MORE 12/19/2023 97091-YTIEKZJ NAIL, 6 OR MORE 03/15/2024 99331-UDJIXLX NAIL, 6 OR MORE 06/11/2024 24495-AVEPMJW NAIL, 6 OR MORE 09/06/2024 11005-WOQR SKIN LESIONS, OVER 4 09/07/19 25 53377-SXEO SKIN LESIONS, OVER 4 06/11/19 25 08880-MVNY SKIN LESIONS, OVER 4 03/15/20 24 70890-JSOJ SKIN LESIONS, OVER 4 12/19/19 24 80667-UKBR SKIN LESIONS, OVER 4 06/30/19 24 43557-FBET SKIN LESIONS, OVER 4 01/25/20 23 42125-OGCX SKIN LESIONS, OVER 4 11/12/19 23 22805-XEHR SKIN LESIONS, OVER 4 09/03/19 23 24048-LJLE SKIN LESIONS, OVER 4 06/24/19 23 72187-BGGL SKIN LESIONS, OVER 4 04/15/20 22 Next Appt Details Provider Name:Jose Maria Thompson , 12/03/2024 04:00:00 PM, [address] [facility], [place], [address], Insurance Providers Payer Name Payer Address Payer Phone Subscriber Number Group Number Insured Name Patient Relationship to Insured Coverage Start Date Coverage End Date [facility] 65 Medicare Preferred [address] [place] [address] [id number] Karyn Cloud Self - patient is the insured Medical (General) History Medical History History ICD Code Anxiety Arthritis CAD (Cholesterol) High blood pressure Reflux Right hip fracture/ORIF, Feb 2024 Surgical History Surgery Date(Month/Year) Fractures hip 02/2024 hip surgery 06/2024
[2024-10-27 10:00] LABS: MANUAL DIFF FLAG NO
[2024-10-27 10:07] LABS: Basophils Percent Auto 0.6 % (0-2); Eosinophils Absolute Auto 0.1 X10*3/uL (0.0-0.4); Eosinophils Percent Auto 2.6 % (0-4); Hemoglobin 13.5 g/dl (12.0-16.0); Imm Gran Abs Auto 0.02 X10*3/uL (0.00-0.03); Imm Gran Pct Auto 0.4 % (0.0-0.4); Lymphocytes Absolute Auto 1.6 X10*3/uL (1.2-4.9); Lymphocytes Percent Auto 35.1 % (20-40); Mean Corpuscular HGB Conc 33.8 g/dl (31.0-35.0); Mean Corpuscular Hemoglobin 30.1 pg (27.0-33.0); Mean Corpuscular Volume 89.3 fL (80.0-98.0); Monocytes Absolute Auto 0.5 X10*3/uL (0.1-1.2); Monocytes Percent Auto 10.2 % (2-11); Neutrophils Absolute Auto 2.4 x10*3/uL (2.0-8.3); Neutrophils Percent Auto 51.1 % (45-73); Platelet Count 194 X10*3/uL (160-400); Red Blood Count 4.48 X10*6/uL (4.20-5.50); Red Cell Distribution Width 13.4 % (11.0-16.0); White Blood Count 4.6 X10*3/uL (4.8-10.8)
[2024-10-27 10:48] LABS: Alanine Aminotransferase 15 U/L (0-31); Albumin Level 4.4 g/dL (3.5-5.0); Alkaline Phosphatase 132 U/L (39-117); Anion Gap 11 (12-20); Aspartate Amino Transferase 27 U/L (5-31); Bilirubin Total 0.3 mg/dL (0.0-1.0); Blood Urea Nitrogen 19 mg/dL (9-16); Calcium 9.5 mg/dL (8.4-10.2); Carbon Dioxide 26 mmol/L (22-29); Chloride 110 mmol/L (96-108); Cholesterol 235 mg/dL (<200); Estimated Glomerular Filt Rate > 60; Glucose Fasting 88 mg/dL (60-99); HDL Cholesterol 74 mg/dL (>40); LDL Cholesterol Calculated 141 mg/dL (<100); Sodium 143 mmol/L (135-145); Total Protein 7.4 g/dL (6.5-8.0); Triglycerides 100 mg/dL (<150)
[2024-10-27 11:05] LABS: Thyroid Stimulating Hormone 2.68 uIU/mL (0.32-4.0); Vitamin D 25-OH Total 28.5 ng/mL (>30)
[2024-10-27 11:20] LABS: Folate 7.5 ng/mL (> or = 4.0); Vitamin B12 459 pg/mL (200-900)
== END 2024-10-27 09:26 | disposition home or self-care (01) ==
LOC: HO.LAB 09:25
PROVIDERS: PCP Internal Medicine; Visit Provider Internal Medicine
DX: R41.3 Other amnesia (principal); D64.9 Anemia, unspecified; E78.5 Hyperlipidemia, unspecified; E53.8 Deficiency of other specified B group vitamins; E55.9 Vitamin D deficiency, unspecified
CPT/HCPCS: 36415; 80053; 80061; 82306; 82607; 82746; 84443; 85025

== ENCOUNTER → 2025-01-14 16:05 | Outpatient (BNVA) | payer MEDICARE, MEDICAID, SELFPAY | PROVIDERS: PCP Internal Medicine; Visit Provider Internal Medicine Endocrinology, Diabetes & Metabolism | DX: M81.0 Age-related osteoporosis without current pathological fracture (principal) | CPT/HCPCS: 99202 ==

== ENCOUNTER 2025-04-06 09:56 | Outpatient (REF) | payer MEDICARE, MEDICAID, SELFPAY ==
--- OUTSIDE RECORDS SUMMARY | 2023-10-20 11:00 | XMS_ITS ---
Author Organization [facility] Address [address] [place] [address] Care Team Providers Care Panel Monitor Name Role Phone Michael NICHOLAS, Tara Primary Care Provider Unavail Jose Maria Triana Unavailable [phone] Encounters Encounter Location Date Provider Diagnosis [address] [address] 10/20/2023 Jose Maria Thompson Plan Of Treatment Next Appt Details Provider Name:Luba tejada, 06/18/2025 04:00:00 PM, [address] [facility], [place] [address], [place], [address], Progress Notes * Dioni CLOUDOB:[birth year] (84 yo F)Acc No.[id number]:10/20/2023 Progress Note Patient: Jourdan SINGHNoelNubiavicenta Provider: Bryon Thompson DPM :1940 A ge:83 Y S ex:Female Date:10/20/2023 [facility] [address] [facility] Pcp:Tara Rodriguez MD Subjective: * Chief Complaints: * * Medical History: Objective: * Vitals: Assessment: Plan: * Treatment: * Images: * The named appointment provid er may or may not be the originator of this progress note, and it is not deemed complete until electronically signed by the appointment provider. Sign off status: Pending * Provider: Bryon Thompson DPM Date: 0 10/20/2023 Generated for Naa alexandre/Danielle/Quintin on: 1 06/06/2024 09:58 AM EST
--- OUTSIDE RECORDS SUMMARY | 2025-02-14 11:00 | XMS_ITS ---
Author Organization [facility] Address [address] [place] [address] Care Team Providers Care Can Patcher Name Role Phone Michael NICHOLAS, Tara Primary Care Provider Unavail Jose Maria Triana Unavailable [phone] Encounters Encounter Location Date Provider Diagnosis [facility] [address] [place] [address] 02/14/2025 Jose Maria Thompson Plan Of Treatment Next Appt Details Provider Name:Luba tejada, 06/18/2025 04:00:00 PM, [address] [facility], [place] [address], [place], [address], Progress Notes * Dioni CLOUDOB:[birth year] (84 yo F)Acc No.[id number]:02/14/2025 Progress Note Patient: Jourdan SINGHNoelNubiavicenta Provider: Bryon Thompson DPM :1940 A ge:84 Y S ex:Female Date:02/14/2025 [facility] [address] [facility] Pcp:Tara Rodriguez MD Subjective: * Chief Complaints: * * Medical History: Objective: * Vitals: Assessment: Plan: * Treatment: * Images: * The named appointment provid er may or may not be the originator of this progress note, and it is not deemed complete until electronically signed by the appointment provider. Sign off status: Pending * Provider: Bryon Thompson DPM Date: Generated for Naa alexandre/Danielle/Quintin on: 06/06/2024 09:58 AM EST
--- OUTSIDE RECORDS SUMMARY | 2025-03-22 08:30 | XMS_ITS ---
Author Organization [facility] Address [address] [place] [address] Care Team Providers Care Stretching Machine Operator Name Role Phone Michael NICHOLAS, Tara Primary Care Provider Unavail able Jose Maria Thompson Unavailable [phone] Luba Young Unavailable [phone] Encounters Encounter [facility] [address] 03/22/2025 Luba Young Plan Of Treatment Next Appt Details Provider Name:Luba tejada, 06/18/2025 04:00:00 PM, [address] [place] [address], [phone], Progress Notes * Garret CLOUDeeDOB:[birth year] (84 yo F)Acc No.[id number]:03/22/2025 Progress Note Patient: Jourdan WASHINGTONMARY Karyn Provider: Destiny Young DPM :1940 A ge:84 Y S ex:Female Date:03/22/2025 [facility] Pcp:Tara Rodriguez MD Subjective: * Chief Complaints: * * Medical History: Objective: * Vitals: Assessment: Plan: * Treatment: * Images: * The named appointment provid er may or may not be the originator of this progress note, and it is not deemed complete until electronically signed by the appointment provider. Sign off status: Pending * Provider: Destiny Young DPM Date: 05/22/2024 Generated for Naa alexandre/Danielle/Quintin on: 06/06/2024 09:59 AM EST
--- OUTSIDE RECORDS SUMMARY | 2025-04-06 09:59 | XMS_ITS | Patient Health Record ---
[facility] Address [address] [place] [address] Care Team Providers Care Bottom Man Name Role Phone Michael NICHOLAS, Tara Primary Care Provider Unavail able Jose Maria Thompson Unavailable [phone] Luba Young Unavailable [phone] Allergies No Known Allergies Reason For Referral No Information Medications Medication SIG (Take, Route, Frequency, Duration) Notes Start Date End Date Status Citalopram Hydrobromide 30 MG 1 capsule Orally Once a day; Duration: 30 day(s) Active Simvastatin 20 MG 1 tablet in the evening Orally Once a day; Duration: 30 day(s) Not-Taking Orthopedic Extra Depth Shoes With Custom Heat Molded Multidensity Innersoles 1 Pair shoes with 3 Pair custom heat molded innersoles Wear Daily; Duration: 365 days 03/19/2025 Active Simvastatin 20 MG 1 tablet in the evening Orally Once a day; Duration: 30 day(s) Active Omeprazole 20 MG 1 capsule 30 minutes before morning meal Orally Once a day; Duration: 30 day(s) Active hydroCHLOROthiazide 25 MG 1 tablet in th e morning Orally Once a day; Duration: 30 day(s) Active Omeprazole 20 MG 1 capsule 30 minutes before morning meal Orally Once a day; Duration: 30 day(s) Not-Taking Citalopram Hydrobromide 30 MG 1 capsule Orally Once a day; Duration: 30 day(s) Not-Taking hydroCHLOROthiazide 25 MG 1 tablet in th e morning Orally Once a day; Duration: 30 day(s) Not-Taking Orthopedic Extra Depth Shoes With Custom Heat Molded Multidensity Innersoles 1 Pair shoes with 3 Pair custom heat molded innersoles Wear Daily; Duration: 365 days 06/30/2023 Active Immunizations Vaccine Route Administration Date Status Comme nts Influenza Unknown 01/10/2024 Administered Social History Tobacco Use: Social History Observation Description Date Details (start date - stop date) Never Smoker NA - NA Tobacco use other than smoking: Question Answer Notes Are you an other tobacco user? No Tobacco Control (Standard) Question Answer Notes Tobacco use: Nonsmoker Additional Findings: Tobacco non-user Current no nsmoker AUDIT-C (Standard) Question Answer Notes Did you have a drink containing alcohol in the p ast year? No Points 0 Interpretation Negative Problems Problem Type SNOMED Code ICD Code Onset Dates Problem Status W/U Status Risk Notes Problem Information temporarily unavailable Other hammer toe(s) (acquired), right foot (M20.41) Active confirmed Problem Information temporarily unavailable Other hammer toe(s) (acquired), left foot (M20.42) Active confirmed Problem Information temporarily unavailable Atherosclerosis of nenana artery of both lower extremities, with unspecified presence of clinical manifestation (I70.203) Active confirmed Vital Signs Blood pressure diastolic 65 mm Hg 03/19/2025 Height 5 ft in 03/19/2025 Blood pressure systolic 120 mm Hg 03/19/2025 Weight 108 lbs 03/19/2025 BMI 21.09 kg/m2 03/19/2025 Procedures Procedure Date Ordered Date Performed Result Body Sit e 02532-NGYYPFO NAIL, 6 OR MORE 06/11/2024 N/A 57279-CIZM SKIN LESIONS, OVER 4 06/11/2024 N/A 38485-OMBBPEW NAIL, 6 OR MORE 09/06/2024 N/A 50169-QNNQ SKIN LESIONS, OVER 4 09/06/2024 N/A 57286-YDPTCJU NAIL, 6 OR MORE 12/03/2024 N/A 09036-PVOB SKIN LESIONS, OVER 4 12/03/2024 N/A 12604-ESBARRK NAIL, 6 OR MORE 03/19/2025 N/A 80372-OKUX SKIN LESIONS, OVER 4 03/19/2025 N/A Encounters Encounter Location Date Provider Diagnosis [facility] [address] [address] 06/11/2024 Jose Maria Thompson Atherosclerosis of nenana artery of both lower extremities, with unspecified presence of clinical manifestation I70.203 ; Tinea unguium B35.1 ; Pain in right toe(s) M79.674 and Pain in left toe(s) M79.[address] [address] 09/06/2024 Jose Maria Thompson Atherosclerosis of nenana artery of both lower extremities, with unspecified presence of clinical manifestation I70.203 ; Tinea unguium B35.1 ; Pain in right toe(s) M79.674 and Pain in left toe(s) M79.[address] [address] 12/03/2024 Jose Maria Thompson Atherosclerosis of nenana artery of both lower extremities, with unspecified presence of clinical manifestation I70.203 ; Tinea unguium B35.1 ; Pain in right toe(s) M79.674 and Pain in left toe(s) M79.[address] [address] 03/19/2025 Luba Young Other hammer toe(s) (acquired), right foot M20.41 ; Other hammer toe(s) (acquired), left foot M20.42 ; Atherosclerosis of nenana artery of both lower extremities, with unspecified presence of clinical manifestation I70.203 ; Tinea unguium B35.1 ; Pain in right toe(s) M79.674 and Pain in left toe(s) M79.[address] [address] 02/14/2025 Jose Maria Thompson Assessments Encounter Date Diagnosis (ICD Code) Assessment Notes Treatment Notes Treatment Clinical Notes Section Notes 06/11/2024 Tinea unguium (ICD-10 - B35.1) 06/11/2024 Atherosclerosis of nenana artery of both lower extremities, with unspecified presence of clinical manifestation (ICD-10 - I70.203) 09/06/2024 Tinea unguium (ICD-10 - B35.1) 09/06/2024 Atherosclerosis of nenana artery of both lower extremities, with unspecified presence of clinical manifestation (ICD-10 - I70.203) 12/03/2024 Tinea unguium (ICD-10 - B35.1) 12/03/2024 Atherosclerosis of nenana artery of both lower extremities, with unspecified presence of clinical manifestation (ICD-10 - I70.203) 03/19/2025 Other hammer toe(s) (acquired), right foot (ICD-10 - M20.41) Patient Educated with: DIABETIC FOOT CARE INSTRUCTIONS. pdf (DIABETIC FOOT CARE INSTRUCTIONS. pdf) 03/19/2025 Other hammer toe(s) (acquired), left foot (ICD-10 - M20.42) 12/03/2024 Pain in right toe(s) (ICD-10 - M79.674) 06/11/2024 Pain in right toe(s) (ICD-10 - M79.674) 09/06/2024 Pain in right toe(s) (ICD-10 - M79.674) 12/03/2024 Pain in left toe(s) (ICD-10 - M79.675) 09/06/2024 Pain in left toe(s) (ICD-10 - M79.675) 06/11/2024 Pain in left toe(s) (ICD-10 - M79.675) 03/19/2025 Atherosclerosis of nenana artery of both lower extremities, with unspecified presence of clinical manifestation (ICD-10 - I70.203) 03/19/2025 Tinea unguium (ICD-10 - B35.1) 03/19/2025 Pain in right toe(s) (ICD-10 - M79.674) 03/19/2025 Pain in left toe(s) (ICD-10 - M79.675) Plan Of Treatment Pending Test Test Name Order Date 38517-NCZOWUL NAIL, 6 OR MORE 04/15/2022 36855-KKNWSAS NAIL, 6 OR MORE 06/24/2022 78664-UFBMPGL NAIL, 6 OR MORE 09/02/2022 02692-VSHFYPR NAIL, 6 OR MORE 11/11/2022 89342-HEPVKSQ NAIL, 6 OR MORE 01/24/2023 87116-VIKICNJ NAIL, 6 OR MORE 06/30/2023 88908-DJBEDGS NAIL, 6 OR MORE 12/19/2023 44790-RYENIWM NAIL, 6 OR MORE 03/15/2024 22317-QTNSDAR NAIL, 6 OR MORE 06/11/2024 05199-AHYKLCZ NAIL, 6 OR MORE 09/06/2024 07479-QAYCWYP NAIL, 6 OR MORE 12/03/2024 30864-WDCJXMG NAIL, 6 OR MORE 03/19/2025 07924-DPAS SKIN LESIONS, OVER 4 03/19/20 25 22573-EKHO SKIN LESIONS, OVER 4 12/04/19 25 10999-SHED SKIN LESIONS, OVER 4 09/07/19 25 00500-HNND SKIN LESIONS, OVER 4 06/11/19 25 16261-ZCXE SKIN LESIONS, OVER 4 03/15/20 24 95931-JMYF SKIN LESIONS, OVER 4 12/19/19 24 31838-QJKN SKIN LESIONS, OVER 4 06/30/19 24 20758-HTWI SKIN LESIONS, OVER 4 01/25/20 23 78288-PZBC SKIN LESIONS, OVER 4 11/12/19 23 69641-YNSN SKIN LESIONS, OVER 4 09/03/19 23 85846-KULV SKIN LESIONS, OVER 4 06/24/19 23 61316-CWYO SKIN LESIONS, OVER 4 04/15/20 Next Appt Details Provider Name:Luba Emmanuel tejada, 06/18/2025 04:00:00 PM, [address] [facility] [address], [place], [address], Insurance Providers Payer Name Payer Address Payer Phone Subscriber Number Group Number Insured Name Patient Relationship to Insured Coverage Start Date Coverage End Date [facility] 65 Medicare Preferred [address] [place] [address] [id number] Karyn Cloud Self - patient is the insured Medical (General) History Medical History History ICD Code Anxiety Arthritis CAD (Cholesterol) High blood pressure Reflux Right hip fracture/ORIF, Feb 2024 Surgical History Surgery Date(Month/Year) Fractures hip 02/2024 hip surgery 06/2024
--- OUTSIDE RECORDS SUMMARY | 2025-04-06 09:59 | XMS_ITS | Patient Health Record ---
Author Organization [facility] Address [address] [place] [address] Care Team Providers Care Lead Applications Developer Name Role Phone Ricardo John Jr Reason For Referral No Information Plan Of Treatment No Information
[2025-04-06 10:27] LABS: MANUAL DIFF FLAG NO
[2025-04-06 11:34] LABS: Hematocrit 40.8 % (37.0-47.0); Hemoglobin 13.5 g/dl (12.0-16.0); Imm Gran Abs Auto 0.01 X10*3/uL (0.00-0.03); Imm Gran Pct Auto 0.2 % (0.0-0.4); Lymphocytes Absolute Auto 1.5 X10*3/uL (1.2-4.9); Mean Corpuscular HGB Conc 33.1 g/dl (31.0-35.0); Mean Corpuscular Hemoglobin 30.5 pg (27.0-33.0); Mean Corpuscular Volume 92.1 fL (80.0-98.0); NRBC Abs Auto 0.000 X10*3/uL (0.0-0.012); NRBC Pct Auto 0.0 /100WBC (0.0-0.2); Platelet Count 218 X10*3/uL (160-400); Red Blood Count 4.43 X10*6/uL (4.20-5.50); White Blood Count 5.0 X10*3/uL (4.8-10.8)
[2025-04-06 11:50] LABS: Appearance Urine Clear; Glucose Urine UA Negative (Negative); PH 6.0 (5.0-9.0); Specific Gravity - Urine 1.020 (1.005-1.025); UMIC TRIGGER UACC YES
[2025-04-06 12:23] LABS: Alanine Aminotransferase 17 U/L (0-31); Albumin Level 4.5 g/dL (3.5-5.0); Alkaline Phosphatase 128 U/L (39-117); Anion Gap 12 (12-20); Aspartate Amino Transferase 29 U/L (5-31); Blood Urea Nitrogen 19 mg/dL (9-16); Calcium 9.8 mg/dL (8.4-10.2); Carbon Dioxide 28 mmol/L (22-29); Chloride 108 mmol/L (96-108); Estimated Glomerular Filt Rate > 60; Potassium 3.8 mmol/L (3.3-5.1); Sodium 144 mmol/L (135-145); Total Protein 7.6 g/dL (6.5-8.0)
[2025-04-06 12:29] LABS: Thyroid Stimulating Hormone 3.06 uIU/mL (0.32-4.0)
[2025-04-06 12:47] LABS: Folate 8.6 ng/mL (> or = 4.0); Vitamin B12 417 pg/mL (200-900)
[2025-04-08 04:48] LABS: Syphilis Screen Nonreactive (Nonreactive)
== END 2025-04-06 09:57 | disposition home or self-care (01) ==
LOC: HO.LAB 09:56
PROVIDERS: Absent Provider Internal Medicine; PCP Internal Medicine; Visit Provider Internal Medicine Endocrinology, Diabetes & Metabolism
DX: I10 Essential (primary) hypertension (principal); M81.0 Age-related osteoporosis without current pathological fracture; E53.8 Deficiency of other specified B group vitamins; R41.3 Other amnesia; R41.0 Disorientation, unspecified; D64.9 Anemia, unspecified
CPT/HCPCS: 36415; 80053; 81001; 82306; 82607; 82746; 84100; 84443; 85025; 86335; 86780

== ENCOUNTER 2025-04-08 16:11 | Outpatient (AMB) | payer MEDICARE, SELFPAY ==
--- OUTSIDE RECORDS SUMMARY | 2023-10-20 11:00 | XMS_ITS ---
Author Organization [facility] Address [address] [place] [address] Care Team Providers Care Water Quality Technician Name Role Phone Michael NICHOLAS, Tara Primary Care Provider Unavail Jose Maria Triana Unavailable [phone] Encounters Encounter Location Date Provider Diagnosis [facility] [address] [place] [id number] 10/20/2023 Jose Maria Thompson Plan Of Treatment Next Appt Details Provider Name:Luba tejada, 06/18/2025 04:00:00 PM, [address] [facility], [place] [address], [place], [address], Progress Notes * Dioni CLOUDOB:[birth year] (84 yo F)Acc No.[id number]:10/20/2023 Progress Note Patient: Jourdan SINGHNoelNubiavicenta Provider: Bryon Thompson DPM :1940 A ge:83 Y S ex:Female Date:10/20/2023 [facility] [address] [facility] Pcp:Tara Rodriguez MD Subjective: * Chief Complaints: [...] 10/20/2023 Generated for Naa alexandre/Danielle/Quintin on: 1 06/09/2024 06:40 PM EST
--- OUTSIDE RECORDS SUMMARY | 2025-02-14 11:00 | XMS_ITS ---
Author Organization [facility] Address [address] [place] [address] Care Team Providers Care Sand Screener Operator Name Role Phone Michael NICHOLAS, Tara Primary Care Provider Unavail Jose Maria Triana Unavailable [phone] Encounters Encounter Location Date Provider Diagnosis [facility] [address] [place] [phone] 02/14/2025 Jose Maria Thompson Plan Of Treatment Next Appt Details Provider Name:Luba tejada, 06/18/2025 04:00:00 PM, [address] [facility], [place] [place] [address], [place], [address], Progress Notes * Dioni CLOUDOB:[birth year] (84 yo F)Acc No.[id number]:02/14/2025 Progress Note Patient: Jourdan SINGHNoelNubiavicenta Provider: Bryon Thompson DPM :1940 A ge:84 Y S ex:Female Date:02/14/2025 Address: [address] [facility] Pcp:Tara Rodriguez MD Subjective: * Chief Complaints: * * Medical History: Objective: * Vitals: Assessment: Plan: * Treatment: * Images: * The named appointment provid er may or may not be the originator of this progress note, and it is not deemed complete until electronically signed by the appointment provider. Sign off status: Pending * Provider: Bryon Thompson DPM Date: 1 Generated for Naa alexandre/Danielle/Quintin on: 1 06/09/2024 06:40 PM EST
--- OUTSIDE RECORDS SUMMARY | 2025-03-22 08:30 | XMS_ITS ---
Author Organization [facility] Address [address] [place] [address] Care Team Providers Care Capper Machine Operator Name Role Phone Michael NICHOLAS, Tara Primary Care Provider Unavail able Jose Maria Thompson Unavailable [phone] Luba Young Unavailable [phone] Encounters Encounter [facility] [address] [facility]/22/2025 Luba Young Plan Of Treatment Next Appt Details Provider Name:Luba tejada, 06/18/2025 04:00:00 PM, [address] [place] [address], [address], Progress Notes * Garret CLOUDeeDOB:[birth year] (84 yo F)Acc No.[id number]:03/22/2025 Progress Note Patient: Jourdan ESTESBRANDON Karyn Provider: Destiny Young DPM :1940 A ge:84 Y S ex:Female Date:03/22/2025 [facility] [address] [facility] Pcp:Tara Rodriguez MD Subjective: * Chief Complaints: * * Medical History: Objective: * Vitals: Assessment: Plan: * Treatment: * Images: * The named appointment provid er may or may not be the originator of this progress note, and it is not deemed complete until electronically signed by the appointment provider. Sign off status: Pending * Provider: Destiny Young, FAITH Date: 05/22/2024 Generated for Naa alexandre/Danielle/Quintin on: 06/09/2024 06:40 PM EST
--- NOTE | 2025-04-08 16:17 | A.OFFPC_ITS ---
Vital Signs 04/08/25 16:18 Height 4 ft 11.65 in Weight 117 lb 2 oz BMI 23.1 BP 122/66 Blood Pressure Location Rt brachial Position Sitting Pulse 72 Pulse Source Pulse Oximeter Temp 97.5 F Temp Source Temporal Artery Scan Pulse Oximetry (%) 96 Oxygen Delivery Method Room Air Intake Visit Reasons: annual exam Intake Note: Patient is here today for a physical. Supervisor Color Paste Mixing Required: No Car Filler: Present Accompanied by: Daughter Allergies aspirin (Aspirin) Adverse Reaction (Mild, Verified 04/08/25 16:28) bruising Medication List - Last Reconciled 04/08/25 by Tara Islas MD acetaminophen (Tylenol Extra Strength) 1,000 mg (2 x 500 mg) PO QID PRN levetiracetam 500 mg PO BID sertraline 100 mg PO DAILY 90 days simvastatin 20 mg PO BEDTIME walker (Ultra-Light Rollator misc) As directed Tobacco use date assessed: 04/08/25 Fall risk assessment: 2 + Falls in past year (February 2025 2 fals) Last assessed Fall Risk: 04/08/25 Dental Screening Dental Screen Date: 09/10/24 HPI HPI Comments History of Present Illness Details The patient is an 84 year old individual presenting for an annual physical examination. The patient's current medications include Keppra 500 mg twice a day for seizure prevention, sertraline 100 mg for depression with anxiety, and simvastatin 20 mg. The patient has a known allergy to aspirin, which causes bruising. Past surgical history includes a laminectomy, cataract surgery, right hip replacement, and hand surgery for a fracture in 2004. The patient has a history of a prior colonoscopy and underwent a bone densitometry scan this year. The patient has never smoked. The patient reports having a poor memory, which has worsened since the patient's spouse . A family member notes that the patient has difficulty switching between speaking Telugu and Palauan. The patient has an upcoming appointment at a memory clinic in June. Regarding mood, the patient reports being prone to crying when hurt, but states this has been a lifelong trait. The patient also expresses extreme worry about the patient's family members. The patient has had two recent falls after forgoing the use of the patient's walker. The patient reports a preference for a different walker than the one currently used, stating it is better and feels faster. [facility] Medical History Depression Meningioma Generalized anxiety disorder Pure hypercholesterolemia Leukopenia Mild recurrent major depression Left shoulder pain Osteoporosis Dyslipidemia Osteoarthritis of right knee Hypertension Surgical History History of laminectomy Hx of bilateral cataract extraction H/O colonoscopy History of right hip replacement History of hand surgery Family History Father Old age Mother Respiratory disease Brother Pancreatic cancer Sister No problems noted. Sister No problems noted. Daughter No problems noted. Daughter No problems noted. Social History (Updated 04/08/25 @ 16:34 by Tara Islas MD) Household Members Other:: daughter Housing: Apartment Are you a primary human services care specialist to a significant other at home: No Do you presently have visiting nurse or other home services: Yes (home health aid 3 hours/week) Alcohol intake: current Alcohol type: wine Patient Tobacco Use Status: Never used Tobacco e-Cigarette/Vaping Use: Never Used Second Hand Smoke Exposure: No Advance Directives Date on File: 07/12/23 service: No Current occupational status: disabled Cognitive needs: Yes (Walker) Hearing needs: No Vision needs: Yes Questionnaire Thrive Questionnaire Date Thrive assessed: 09/10/24 I am a: Patient What is your living situation today?: I have a steady place to live Within the past 12 months, did the food you bought not last and you didn't have the money to get more?: Never true Within the past 12 months, did you worry whether your food would run out before you got money to buy more?: Never true Do you have trouble paying for medicines?: No Do you have trouble getting transportation to medical appointments?: I choose not to answer this question Do you have trouble paying your heating and electricity bill?: No Do you have trouble taking care of your child, family member or friend?: Yes Do you have trouble with day-to-day activities such as bathing, preparing meals, shopping, managing finances, etc.?: Yes Are you currently unemployed and looking for a job?: No Are you interested in more education?: No Please select the resources that you would like help with: None Currently or been in a relationship where the following occur: No concerns reported THRIVE Score: 0 MARK-7 AMB Questionnaire MARK-7 Date MARK - 7 assessed: 09/10/24 Source: Developed by Drs. Lázaro Vinson, Keysha Yanez, Jj Starr and colleagues, with an educational buzz from [employer]. Review of Systems Const All systems reviewed & are unremarkable except as noted in HPI and below Card Denies chest pain at rest, Denies chest pain with activity, Denies edema, Denies irregular heart rhythm, Denies claudication, Denies dyspnea, Denies dyspnea on exertion, Denies orthopnea, Denies paroxysmal nocturnal dyspnea and Denies slow heart rate Resp Denies cough, Denies dyspnea and Denies dyspnea on exertion Physical exam (Primary Care) Vital Signs: Last Vital Signs Temp 97.5 F 04/08/25 16:18 Pulse 72 04/08/25 16:18 BP 122/66 04/08/25 16:18 Pulse Ox 96 04/08/25 16:18 Oxygen Delivery Method Room Air 04/08/25 16:18 BMI result Body Mass Index 23.1 Tobacco/Smoking Status: Tobacco use Status Tobacco use date assessed 04/08/25 04/08/25 16:24 Patient Tobacco Use Status Never used Tobacco 04/08/25 16:34 Tobacco use type 09/12/24 13:45 e-Cigarette/Vaping Use Never Used 04/08/25 16:34 Thrive Assessment: Date of Thrive Assessment Date Thrive assessed 09/10/24 04/08/25 16:24 Currently or been in a relationship where the following occur: No concerns reported [facility] Head: Yes normal to inspection, Yes normocephalic and Yes atraumatic Ears: external ears normal Eyes General: appearance normal, both eyes and all related structures Eyelids: Yes eyelids normal Conjunctivae: conjunctivae normal Neck Neck: Yes normal visual inspection and Yes supple Resp Effort & Inspection: normal respiratory effort Auscultation: clear to auscultation bilaterally Cardio Jugular venous distension: no JVD Rate: regular rate Rhythm: regular rhythm Heart sounds: S1 normal heart sound present and S2 normal heart sound present GI Inspection: Yes normal to inspection Palpation (GI): Soft to palpation and nontender Auscultation: normal bowel sounds Skin General skin exam: no rashes or lesions noted Neuro General: no focal motor deficits Extrem General: Yes full ROM Psych Appearance: grossly normal Immunizations pneumoc 20-radha conj-dip cr(PF) 0.5 mL IM syringe Performing Provider: Tara Islas MD [facility] Administered by: Lashell Carrera CMA on 04/08/25 16:58 Dose Route Admin Location Dispensed Lot Number Expiration Date ND Gear Coding 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 Operator 0.5 mL IM Left Deltoid 0.5 mL [id number] 01/07/26 [employer] Total Dispensed Waste 0.5 mL 0 % VIS Given Date VIS Provided VIS Publication Date 04/08/25 Single Vaccine 24 Eligibility Eligibility Date Funding Source Not [facility] Eligible 04/08/25 Private Coding Level of Care Code Est Pt Level 3 (65077) Est Pt Prev Care >65y(97407) Diagnoses Physical exam Z00.00 Seizures R56.9 Mild recurrent major depression F33.0 Microscopic hematuria R31.29 Time Spent (min) 31 Assessment & Plan Assessment & Plan (1) Physical exam: Code(s): Z00.00 - Encounter for general adult medical examination without abnormal findings Category: Medical (2) Seizures: Code(s): R56.9 - Unspecified convulsions Category: Medical (3) Mild recurrent major depression: Code(s): F33.0 - Major depressive disorder, recurrent, mild Category: Medical (4) Microscopic hematuria: Code(s): R31.29 - Other microscopic hematuria Category: Medical Plan Plan 1. Physical exam Repeat in a year. 2. Hematuria Recent laboratory results were significant for blood in the urine, though the rest of the labs were normal. It was noted this may be related to dehydration, as the urine was concentrated, but the presence of blood is a concern. A referral to Urology will be made for further evaluation. 3. Depression And Anxiety The patient is currently taking sertraline 100 mg for depression with anxiety and reports ongoing symptoms of emotional lability and excessive worry. A discussion was held about increasing the dosage. The plan is to increase the daily dose, which will require two different prescriptions. 4. Memory Impairment The patient reports significant memory problems, which have been worse since the of the patient's spouse. Recent blood work, including B12 and thyroid levels, did not indicate a reversible cause for dementia. Delirium secondary to a urinary tract infection was considered, but the urinalysis was only positive for blood. The patient has an appointment at a memory clinic in June, and the plan is to proceed with that evaluation. 5. History Of Falls The patient has a history of falls, with two nasty falls occurring after electing not to use the walker. There was a discussion regarding the importance of using the walker to prevent a significant injury that could result in wheelchair dependency. Continued use of the walker is strongly advised for safety. Orders: Orders Pneumococcal 20 Immunization Today Z23 - Encounter for immunization Referrals Urology Referral R31.29 - Other microscopic hematuria Medications: New sertraline 25 mg PO DAILY 30 tabs 6RF 30 days
[2025-04-08 16:18] VITALS: BP 122/66; PULSE 72; TEMP 36.4; O2SAT 96; BMI 23.1
--- OUTSIDE RECORDS SUMMARY | 2025-04-08 18:41 | XMS_ITS | Patient Health Record ---
[facility] Address [address] [place] [address] Care Team Providers Care Auto Porter Name Role Phone Michael NICHOLAS, Tara Primary Care Provider Unavail able Jose Maria Thompson Unavailable [phone] Luba Young Unavailable [phone] Allergies No Known Allergies Reason For Referral [...] Problem Status W/U Status Risk Notes Problem Acquired hammer toe of right foot (9822309262377335) Other hammer toe(s) (acquired), right foot (M20.41) Active confirmed Problem Acquired hammer toe of left foot (1896276389100414) Other hammer toe(s) (acquired), left foot (M20.42) Active confirmed Problem Bilateral atherosclerosis of arteries of lower limbs (disorder) (36012851573042426 ) Atherosclerosis of [place] artery of both lower extremities, with unspecified presence of clinical manifestation (I70.203) Active confirmed Vital Signs Blood pressure diastolic 65 mm Hg 03/19/2025 Height 5 ft in 03/19/2025 Blood pressure systolic 120 mm Hg 03/19/2025 Weight 108 lbs 03/19/2025 BMI 21.09 kg/m2 03/19/2025 Procedures Procedure Date Ordered Date Performed Result Body Sit e 95509-BRHELOI NAIL, 6 OR MORE 06/11/2024 N/A 45803-KMCW SKIN LESIONS, OVER 4 06/11/2024 N/A 02704-UXZOIAR NAIL, 6 OR MORE 09/06/2024 N/A 70008-MXGU SKIN LESIONS, OVER 4 09/06/2024 N/A 31864-LAVJPWK NAIL, 6 OR MORE 12/03/2024 N/A 28956-YURJ SKIN LESIONS, OVER 4 12/03/2024 N/A 71125-MTZGHTO NAIL, 6 OR MORE 03/19/2025 N/A 88618-TYRD SKIN LESIONS, OVER 4 03/19/2025 N/A Encounters Encounter Location Date Provider Diagnosis [facility] [address] [address] 06/11/2024 Jose Maria Thompson Atherosclerosis of [place] artery of both lower extremities, with unspecified presence of clinical manifestation I70.203 ; Tinea unguium B35.1 ; Pain in right toe(s) M79.674 and Pain in left toe(s) M79.[address] [address] 09/06/2024 Jose Maria Thompson Atherosclerosis of [place] artery of both lower extremities, with unspecified presence of clinical manifestation I70.203 ; Tinea unguium B35.1 ; Pain in right toe(s) M79.674 and Pain in left toe(s) M79.[address] [address] 12/03/2024 Jose Maria Thompson Atherosclerosis of [place] artery of both lower extremities, with unspecified presence of clinical manifestation I70.203 ; Tinea unguium B35.1 ; Pain in right toe(s) M79.674 and Pain in left toe(s) M79.[address] [address] 03/19/2025 Luba Young Other hammer toe(s) (acquired), right foot M20.41 ; Other hammer toe(s) (acquired), left foot M20.42 ; Atherosclerosis of [place] artery of both lower extremities, with unspecified presence of clinical manifestation I70.203 ; Tinea unguium B35.1 ; Pain in right toe(s) M79.674 and Pain in left toe(s) M79.[address] [address] 02/14/2025 Jose Maria Thompson Assessments Encounter Date Diagnosis (ICD Code) Assessment Notes Treatment Notes Treatment Clinical Notes Section Notes 06/11/2024 Tinea unguium (ICD-10 - B35.1) 06/11/2024 Atherosclerosis of [place] artery of both lower extremities, with unspecified presence of clinical manifestation (ICD-10 - I70.203) 09/06/2024 Tinea unguium (ICD-10 - B35.1) 09/06/2024 Atherosclerosis of [place] artery of both lower extremities, with unspecified presence of clinical manifestation (ICD-10 - I70.203) 12/03/2024 Tinea unguium (ICD-10 - B35.1) 12/03/2024 Atherosclerosis of [place] artery of both lower extremities, with unspecified [...] toe(s) (ICD-10 - M79.675) 03/19/2025 Atherosclerosis of [place] artery of both lower extremities, with unspecified presence of clinical manifestation (ICD-10 - I70.203) 03/19/2025 Tinea unguium (ICD-10 - B35.1) 03/19/2025 Pain in right toe(s) (ICD-10 - M79.674) 03/19/2025 Pain in left toe(s) (ICD-10 - M79.675) Plan Of Treatment Pending Test Test Name Order Date [id number]-RNGTGIG NAIL, 6 OR MORE 04/15/2022 39095-QZJIONZ NAIL, 6 OR MORE 06/24/2022 95381-ZZMCXXU NAIL, 6 OR MORE 09/02/2022 51888-OYKKVRC NAIL, 6 OR MORE 11/11/2022 75910-VSUBOHL NAIL, 6 OR MORE 01/24/2023 36219-BDTVHNP NAIL, 6 OR MORE 06/30/2023 15190-KRLCSWQ NAIL, 6 OR MORE 12/19/2023 68050-DEBECYE NAIL, 6 OR MORE 03/15/2024 28018-NSOODKH NAIL, 6 OR MORE 06/11/2024 72328-ZRGPHJO NAIL, 6 OR MORE 09/06/2024 12646-WWICHPP NAIL, 6 OR MORE 12/03/2024 17164-SPQLWKJ NAIL, 6 OR MORE 03/19/2025 14086-UVDO SKIN LESIONS, OVER 4 03/19/20 25 92016-OPGM SKIN LESIONS, OVER 4 12/04/19 25 59520-GHCV SKIN LESIONS, OVER 4 09/07/19 25 56892-JJTH SKIN LESIONS, OVER 4 06/11/19 25 16206-ZVQN SKIN LESIONS, OVER 4 03/15/20 24 97025-OJIA SKIN LESIONS, OVER 4 12/19/19 24 76285-HKKI SKIN LESIONS, OVER 4 06/30/19 24 70697-GNXE SKIN LESIONS, OVER 4 01/25/20 23 44414-RXMC SKIN LESIONS, OVER 4 11/12/19 23 82628-XXSH SKIN LESIONS, OVER 4 09/03/19 23 45879-ACLW SKIN LESIONS, OVER 4 06/24/19 23 31679-JKGN SKIN LESIONS, OVER 4 04/15/20 Next Appt Details Provider Name:Luba Emmanuel tejada, 06/18/2025 04:00:00 PM, [facility] [address], [place], [address], Insurance Providers Payer Name Payer Address Payer Phone Subscriber Number Group Number Insured Name Patient Relationship to Insured Coverage Start Date Coverage End Date [facility] 65 Medicare Preferred [address] [place] [address] [id number] Karyn Cloud Self - patient is the insured Medical (General) History Medical History History ICD Code Anxiety Arthritis CAD (Cholesterol) High blood pressure Reflux Right hip fracture/ORIF, Feb 2024 Surgical History Surgery Date(Month/Year) Fractures hip 02/2024 hip surgery 06/2024
--- OUTSIDE RECORDS SUMMARY | 2025-04-08 18:41 | XMS_ITS | Patient Health Record ---
Author Organization [facility] Address [address] [place] [address] Care Team Providers Care Jig And Fixture Builder Apprentice Name Role Phone Ricardo John Jr Reason For Referral No Information Plan Of Treatment No Information
== END 2025-04-08 17:55 | disposition home or self-care (01) ==
LOC: HO.HMCH 16:12
PROVIDERS: PCP Internal Medicine; Visit Provider Internal Medicine
DX: Z00.00 Encounter for general adult medical examination without abnormal findings (principal); R56.9 Unspecified convulsions; F33.0 Major depressive disorder, recurrent, mild; R31.29 Other microscopic hematuria; Z23 Encounter for immunization

== ENCOUNTER → 2025-04-08 16:11 | Outpatient (BNVA) | payer MEDICARE, SELFPAY | PROVIDERS: PCP Internal Medicine; Visit Provider Internal Medicine | DX: Z00.00 Encounter for general adult medical examination without abnormal findings (principal); R56.9 Unspecified convulsions; F33.0 Major depressive disorder, recurrent, mild; R31.29 Other microscopic hematuria; F41.9 Anxiety disorder, unspecified; G31.84 Mild cognitive impairment of uncertain or unknown etiology; Z23 Encounter for immunization; Z91.81 History of falling | CPT/HCPCS: 90471; 90677; 99212; 99397 ==